=== PATIENT | male | born 1955 | race Two or more races ===

== ENCOUNTER 2020-04-03 19:51 | Inpatient (IN) | payer MEDICAID ==
[~2020-04-03] VITALS: Ht 160 cm; Wt 100.7 kg
[2020-04-03] MEDS ORDERED: DEXAMETHASONE SOD PHOSPHATE 10 MG/ML VIAL IV ONE (20:00)
--- NOTE | 2020-04-03 20:00 | NUR ---
PT AAOX4. AMBULATORY, BIBRA FROM HOME. PER PT TESTED POSITIVE 04/01/20. PT C/O SOB SAT 85% ROOM AIR. PLACED ON NON REBREATHER 15L SAT 98%. MD AND RT AT BEDSIDE. AWAITING ORDERS.
--- NOTE | 2020-04-03 20:02 | NUR ---
R HAND AND L HAND 20G PLACED ON PT.
--- NOTE | 2020-04-03 20:04 | NUR ---
OTC CLERK AT BEDSIDE
[2020-04-03] MEDS ORDERED: DEXAMETHASONE SOD PHOSPHATE 10 MG/ML VIAL ONE (20:07)
[2020-04-03 20:37] LABS: HEMOGLOBIN 13.8 g/dL (13.5-17.5); MEAN CORPUSCULAR VOLUME 80 fL (80-96); PLATELET COUNT (AUTO) 140 /CMM (150-450); WHITE BLOOD COUNT (AUTO) 6.1 K/uL (4.3-11.0)
[2020-04-03 20:42] LABS: BASOPHILS % (AUTO) 0.2 % (0.0-2.0); EOSINOPHILS % (AUTO) 0.1 % (0.0-6.0); HEMATOCRIT 42 % (39-51); LYMPHOCYTES # (AUTO) 0.6 /CMM (0.8-4.8); LYMPHOCYTES % (AUTO) 9.8 % (20.0-44.0); MEAN CORPUSCULAR HGB CONC 33 g/dl (31.0-36.0); MONOCYTES # (AUTO) 0.3 /CMM (0.1-1.30); MONOCYTES % (AUTO) 5.4 % (2.0-12.0); NEUTROPHILS # (AUTO) 5.2 /CMM (1.8-8.9); NEUTROPHILS % (AUTO) 84.5 % (43.0-81.0); RED BLOOD CELL COUNT(AUTO) 5.24 MIL/uL (4.5-6.0)
--- NOTE | 2020-04-03 20:46 | NUR ---
MAMADOUID SWABBED, SENT TO LAB.
--- NOTE | 2020-04-03 20:49 | NUR ---
PT PROVIDED WITH BLANKETS, REMAINS SAT 100%. NO ACUTE DISTRESS NOTED.
[2020-04-03 20:53] LABS: D-DIMER 1.67 mg/L(FEU (0.17-0.50)
[2020-04-03 20:59] LABS: B-TYPE NATRIURETIC PEPTIDE 5384 PG/ML (0-125)
--- NOTE | 2020-04-03 21:07 | NUR ---
PT'S DAUGHTER, MAURICIO
[2020-04-03 21:08] LABS: CREATINE KINASE, TOTAL 266 U/L (39-308); FERRITIN 938 ng/mL (8-388)
[2020-04-03 21:11] LABS: C-REACTIVE PROTEIN 17.8 mg/dL (0.0-0.9)
[2020-04-03] MEDS ORDERED: FINA5TAB4 PO (21:22)
[2020-04-03] MEDS ORDERED: AMLO-212 PO (21:22)
[2020-04-03] MEDS ORDERED: METF-440 PO (21:22)
[2020-04-03] MEDS ORDERED: TAMS-12 PO (21:22)
[2020-04-03] MEDS ORDERED: LISI40TA13 PO (21:22)
[2020-04-03] MEDS ORDERED: SIMV80TA90 PO (21:22)
[2020-04-03] MEDS ORDERED: LATA2.5D15 EACHEYE (21:22)
[2020-04-03] MEDS ORDERED: CARV25TA2 PO (21:22)
[2020-04-03] MEDS ORDERED: ASPIRIN 81 MG TAB.CHEW PO ONE (21:30)
[2020-04-03] MEDS ORDERED: CEFTRIAXONE 1 G in IV D5W 50 ML IV ONE (21:30)
[2020-04-03] MEDS ORDERED: AZITHROMYCIN 500 MG in IV D5W 250 ML IV ONE (21:30)
[2020-04-03] MEDS ORDERED: CEFTRIAXONE 1GM BAG (ER ONLY) 50 ML IV ONE (21:35)
[2020-04-03] MEDS ORDERED: ASPIRIN 81 MG TAB.CHEW ONE (21:35)
[2020-04-03] MEDS ORDERED: AZITHROMYCIN 500 MG VIAL ONE (21:54)
[2020-04-03 21:56] LABS: CALCIUM, SERUM 8.5 mg/dL (8.5-10.1); POTASSIUM 2.9 mmol/L (3.5-5.1)
[2020-04-03 21:57] LABS: ALBUMIN 2.9 g/dL (3.4-5.0); BILIRUBIN,TOTAL 0.7 mg/dL (0.2-1.0); TOTAL PROTEIN, SERUM 7.5 g/dL (6.4-8.2)
[2020-04-03] MEDS ORDERED: ENOXAPARIN SODIUM 100 MG/ML DISP.SYRIN SQ ONE ×2 (22:00→22:08)
--- NOTE | 2020-04-03 22:01 | NUR ---
DR. YARBROUGH SPEAKING WITH DR. CRUZ REGARDING ADMISSION
--- NOTE | 2020-04-03 22:01 | NUR ---
TAINA CALLED FROM [facility] REGARDING LABS AND VITAL SIGNS. WILL CALL BACK.
[2020-04-03] MEDS ORDERED: ENOXAPARIN SODIUM 30 MG/0.3 ML DISP.SYRIN ONE (22:08)
[2020-04-03] MEDS ORDERED: POTASSIUM CHLORIDE 20 MEQ TAB.PRT.SR PO ONE ×2 (22:19→22:30)
[2020-04-03] MEDS ORDERED: IV NS 0.9% 500 ML BAG IV ONE (22:30)
[2020-04-03] MEDS ORDERED: DEXTROSE 50%-WATER 50 ML DISP.SYRIN IV PRN (23:00)
[2020-04-03] MEDS ORDERED: ZOLPIDEM TARTRATE 5 MG TABLET PO PRN (23:00)
--- NOTE | 2020-04-03 23:04 | NUR ---
PATTERN WORKER AT BED SIDE
[2020-04-03 23:28] LABS: BILIRUBIN,DIRECT 0.3 mg/dL (0.0-0.2)
[2020-04-03] MEDS ORDERED: IV PREMIX 0.45% NS + KCL 1,000 ML IV ONE (23:42)
[2020-04-03] MEDS: IV PREMIX 0.45% NS + KCL 1,000 ML IV PRN (23:50)
[2020-04-04] MEDS ORDERED: LIDOCAINE 2% JEL UROJET 10 ML MM ONE (02:53)
--- NOTE | 2020-04-04 03:12 | NUR ---
PT SAT 91%, REPOSITIONED, SAT 96%. VSS.
[2020-04-04 04:58] LABS: HEMATOCRIT 39 % (39-51); HEMOGLOBIN 12.7 g/dL (13.5-17.5); LYMPHOCYTES # (AUTO) 0.6 /CMM (0.8-4.8); LYMPHOCYTES % (AUTO) 9.3 % (20.0-44.0); MEAN CORPUSCULAR HGB CONC 32 g/dl (31.0-36.0); MEAN CORPUSCULAR VOLUME 80 fL (80-96); MONOCYTES # (AUTO) 0.3 /CMM (0.1-1.30); MONOCYTES % (AUTO) 4.2 % (2.0-12.0); NEUTROPHILS # (AUTO) 5.3 /CMM (1.8-8.9); NEUTROPHILS % (AUTO) 86.5 % (43.0-81.0); PLATELET COUNT (AUTO) 138 /CMM (150-450); RED BLOOD CELL COUNT(AUTO) 4.92 MIL/uL (4.5-6.0); WHITE BLOOD COUNT (AUTO) 6.2 K/uL (4.3-11.0)
[2020-04-04] MEDS ORDERED: DEXAMETHASONE SOD PHOSPHATE 10 MG/ML VIAL ONE ×2 (05:06→13:46)
[2020-04-04] MEDS: DEXAMETHASONE SOD PHOSPHATE 4 MG/ML VIAL IV SCH ×2 (05:12→13:54)
[2020-04-04 05:18] LABS: ALBUMIN 2.8 g/dL (3.4-5.0); BILIRUBIN,TOTAL 0.6 mg/dL (0.2-1.0); CALCIUM, SERUM 8.2 mg/dL (8.5-10.1); CREATININE 1.4 mg/dL (0.6-1.3); POTASSIUM 3.4 mmol/L (3.5-5.1); TOTAL PROTEIN, SERUM 7.2 g/dL (6.4-8.2)
[2020-04-04 05:23] LABS: C-REACTIVE PROTEIN 18.4 mg/dL (0.0-0.9)
[2020-04-04] MEDS: BLOOD SUGAR DIAGNOSTIC 1 EACH STRIP VI SCH ×4 (07:45→22:48)
--- NOTE | 2020-04-04 08:10 | NUR ---
PROVIDED WITH BREAKFAST
[2020-04-04] MEDS: INSULIN REGULAR, HUMAN 100 UNIT/ML 3 ML VIAL SQ PRN ×3 (08:11→17:48)
[2020-04-04] MEDS ORDERED: HEPARIN SODIUM, PORCINE 5000 UNITS/1 ML VIAL ONE (08:15)
[2020-04-04] MEDS ORDERED: ASPIRIN 81 MG TAB.CHEW ONE (08:16)
[2020-04-04] MEDS: ASPIRIN 81 MG TAB.CHEW PO SCH (08:54)
--- NOTE | 2020-04-04 08:56 | NUR ---
PT IN BED. AAOX4. NOT IN RESP DISTRESS. BREATHING EVEN AND UNLABORED. O2 O2 VIA NON REBREATHER MASK @ 15LPM, SATTING 96-98%. PT HAD BREAKFAST ATE 20% OF MEAL. MEDICATED ORDERED. IV FLUIDS RUNNING. WILL CONTINUE TO MONITOR
[2020-04-04] MEDS ORDERED: INSULIN GLARGINE, 100 UNIT/ML CARTRIDGE SQ SCH (09:00)
[2020-04-04] MEDS ORDERED: HEPARIN SODIUM, PORCINE 5000 UNITS/1 ML VIAL SQ SCH (09:00)
[2020-04-04] MEDS ORDERED: POTASSIUM CHLORIDE 20 MEQ TAB.PRT.SR PO ONE ×2 (09:00→10:47)
--- NOTE | 2020-04-04 09:10 | NUR ---
DR. CRUZ AT BEDSIDE
[2020-04-04] MEDS ORDERED: REMDESIVIR (CHARGED) 200 MG, *LOADING DOSE 1 EA in IV NS 0.9% 210 ML IV ONE (10:00)
[2020-04-04] MEDS ORDERED: AMLODIPINE BESYLATE 5 MG TABLET ONE (10:47)
[2020-04-04] MEDS ORDERED: CARVEDILOL 12.5 MG TABLET ONE ×2 (10:47→17:49)
[2020-04-04] MEDS ORDERED: TAMSULOSIN 0.4 MG CAP.SR.24H ONE (10:48)
[2020-04-04] MEDS: AMLODIPINE BESYLATE 5 MG TABLET PO SCH (11:06)
[2020-04-04] MEDS: TAMSULOSIN 0.4 MG CAP.SR.24H PO SCH (11:06)
[2020-04-04] MEDS: CARVEDILOL 12.5 MG TABLET PO SCH ×2 (11:06→17:54)
[2020-04-04] MEDS: FINASTERIDE (5 MG) 5 MG TABLET PO SCH (11:07)
--- NOTE | 2020-04-04 11:33 | NUR ---
PT URINATED ON HIS OWN. OUTPUT IS 300ML
--- NOTE | 2020-04-04 12:30 | NUR ---
PT PROVIDED WITH LUNCH
--- NOTE | 2020-04-04 15:54 | NUR ---
CONSENT OBTAINED FOR TRANSFUSION OF CONVALESCENT PLASMA
[2020-04-04] MEDS ORDERED: ENOXAPARIN SODIUM 40 MG/0.4 ML DISP.SYRIN SQ ONE (17:49)
[2020-04-04] MEDS: ENOXAPARIN SODIUM 40 MG/0.4 ML DISP.SYRIN SQ SCH (17:55)
--- NOTE | 2020-04-04 18:23 | NUR ---
BLOOD TRANSFUSION STARTED.
--- NOTE | 2020-04-04 18:23 | NUR ---
BLOOD TRANSFUSION STARTED. R AC 20G
--- NOTE | 2020-04-04 18:40 | NUR ---
VS CHECKED. NO NOTED REACTION FROM INFUSION.
--- NOTE | 2020-04-04 23:07 | NUR ---
REPORT GIVEN WILSON KERN FOR RAFI PT WILL BE TRANSPORTED TO 1ST FLOOR
[2020-04-04] MEDS: *INSULIN REGULAR(HUMULIN R)HUM 100 UNIT/ML VIAL SQ PRN (23:48)
[2020-04-05] VITALS: BP 97/49
--- NOTE | 2020-04-05 | NUR ---
RN NOTES RECEIVED PT FROM ER VIA GURNEY, TRANSFERRED TO BED BY WALKING. ON NONREBREATHER AT 15L. PT NOTED WITH SOB ON EXERTION LIKE TURNING TO SIDES AND DESATS TO 78-80. BREATHING TECHNIQUES GIVEN, KEEP HOB ELEVATED AND GOES TO 90-93% IN TIME. PT ALERT AND ORIENTED X 4. PUT ON TELE MONITORING SHOWS SINUS RHYTHM . WITH RAC G 20 AND LH G 18 IV BOTH PATENT AND INTACT, FLUSHED. HEAD TO TOE ASSESSMENT DONE. SKIN INTACT, WARM TO TOUCH.BP 97/49 RR 36 P 85 T98. PT ORIENTED TO CALL LIGHT, BED OPERATION. ALL SAFETY MEASURES IMPLEMENTED PER PROTOCOL. CALL LIGHT WITHIN REACH, BED LOCKED IN LOWEST POSITION. SIDE RAILS UP X2. ISOLATION PRECAUTION FOR COVID OBSERVED, WILL CONTINUE TO MONITOR.
--- NOTE | 2020-04-05 00:01 | NUR ---
PT TRANSPORTED TO 1ST FLOOR
[2020-04-05] MEDS ORDERED: DEXAMETHASONE SOD PHOSPHATE 10 MG/ML VIAL ONE (00:04)
[2020-04-05] MEDS: DEXAMETHASONE SOD PHOSPHATE 4 MG/ML VIAL IV SCH ×4 (00:14→21:53)
[2020-04-05] MEDS ORDERED: INSULIN REGULAR, HUMAN 100 UNIT/ML 3 ML VIAL SQ PRN (00:30)
[2020-04-05] MEDS ORDERED: DEXTROSE 50%-WATER 50 ML DISP.SYRIN IV PRN (00:30)
[2020-04-05] MEDS ORDERED: *INSULIN REGULAR(HUMULIN R)HUM 100 UNIT/ML VIAL SQ PRN (00:30)
--- NOTE | 2020-04-05 00:40 | NUR ---
rn note Spoke to pt's daughter Ange. Updated about pt's new room and condition.
[2020-04-05] MEDS: LATANOPROST EYE DROP 0.005% 2.5 ML BOTTLE EACHEYE SCH ×2 (00:42→21:53)
[2020-04-05] MEDS: SIMVASTATIN 10 MG TABLET PO SCH ×2 (01:16→21:53)
[2020-04-05] MEDS ORDERED: IV PREMIX 0.45% NS + KCL 1,000 ML IV ONE (01:35)
[2020-04-05] MEDS: IV PREMIX 0.45% NS + KCL 1,000 ML IV PRN (01:42)
[2020-04-05 04:00] VITALS: BP 128/69
--- NOTE | 2020-04-05 05:02 | NUR ---
rn note Pt continue on non rebreather 15L. No distress noted. o2 sat at 94 %. kept hob elevated. On frequent visual check.
--- NOTE | 2020-04-05 07:00 | NUR ---
RN CLOSING NOTES PT ABLE TO MAKE NEEDS KNOWN. CONTINUE ON NRB 15L. NO DISTRESS NOTES, DENIES SOB AT THIS TIME. KEPT HOB ELEVATED AT ALL TIMES. NO CHANGES IN LOC NOTED. SR ON TELE MONITOR. NEEDS ATTENDED. ON FREQUENT VISUAL CHECK. ISOLATION PRECAUTION MAINTAINED. 1/2NS WITH 20MEQ KCL RUNNING AT 75 ML/HR. NO SIGNS OF INFILTRATION. WILL ENDORSE TO NEXT SHIFT NURSE FOR RAFI.
[2020-04-05 07:05] LABS: BASOPHILS % (AUTO) 0.1 % (0.0-2.0); HEMATOCRIT 38 % (39-51); HEMOGLOBIN 12.5 g/dL (13.5-17.5); LYMPHOCYTES # (AUTO) 0.6 /CMM (0.8-4.8); LYMPHOCYTES % (AUTO) 7.4 % (20.0-44.0); MEAN CORPUSCULAR HGB CONC 33 g/dl (31.0-36.0); MEAN CORPUSCULAR VOLUME 80 fL (80-96); MONOCYTES # (AUTO) 0.4 /CMM (0.1-1.30); MONOCYTES % (AUTO) 4.6 % (2.0-12.0); NEUTROPHILS # (AUTO) 6.8 /CMM (1.8-8.9); NEUTROPHILS % (AUTO) 87.9 % (43.0-81.0); PLATELET COUNT (AUTO) 187 /CMM (150-450); RED BLOOD CELL COUNT(AUTO) 4.81 MIL/uL (4.5-6.0); WHITE BLOOD COUNT (AUTO) 7.8 K/uL (4.3-11.0)
[2020-04-05 07:20] LABS: ALBUMIN 2.8 g/dL (3.4-5.0); BILIRUBIN,DIRECT 0.2 mg/dL (0.0-0.2); BILIRUBIN,TOTAL 0.6 mg/dL (0.2-1.0); CALCIUM, SERUM 8.5 mg/dL (8.5-10.1); CREATININE 1.1 mg/dL (0.6-1.3); POTASSIUM 3.8 mmol/L (3.5-5.1); TOTAL PROTEIN, SERUM 7.3 g/dL (6.4-8.2)
[2020-04-05 07:29] LABS: CHOLESTEROL 136 mg/dL (<200); HDL CHOLESTEROL 40 mg/dL (40-60); LDL 85 mg/dL (0-99); TRIGLYCERIDES 104 mg/dL (30-150)
[2020-04-05] MEDS ORDERED: BLOOD SUGAR DIAGNOSTIC 1 EACH STRIP VI SCH (07:30)
--- NOTE | 2020-04-05 07:30 | NUR ---
RN OPENING NOTES PATIENT RECIEVED IN BED IN SEMI-FOWLERS POSITION. PT ABLE TO MAKE NEEDS KNOWN. PATIENT CURRENTLY ON NRB 15L. PATIENT DENIES SOB AT THIS TIME. KEPT HOB ELEVATED AT ALL TIMES. NO CHANGES IN LOC NOTED. NEEDS ATTENDED. ON FREQUENT VISUAL CHECK. ISOLATION PRECAUTION MAINTAINED. 1/2NS WITH 20MEQ KCL RUNNING AT 75 ML/HR. NO SIGNS OF INFILTRATION. SAFETY PRECAUTIONS IMPLEMENTED. BED LOCKED IN LOWEST POSITION, SIDE RAILS UP X2, CALL LIGHT WITHIN REACH. WILL CONTINUE TO MONITOR AND PROVIDE CARE THROUGHOUT SHIFT.
[2020-04-05 08:00] VITALS: BP 123/78
[2020-04-05] MEDS: ASPIRIN 81 MG TAB.CHEW PO SCH (08:11)
[2020-04-05] MEDS: TAMSULOSIN 0.4 MG CAP.SR.24H PO SCH (08:11)
[2020-04-05] MEDS: FINASTERIDE (5 MG) 5 MG TABLET PO SCH (08:11)
[2020-04-05] MEDS: AMLODIPINE BESYLATE 5 MG TABLET PO SCH (08:12)
[2020-04-05] MEDS: CARVEDILOL 12.5 MG TABLET PO SCH ×2 (08:13→18:01)
[2020-04-05] MEDS: ENOXAPARIN SODIUM 40 MG/0.4 ML DISP.SYRIN SQ SCH ×2 (08:14→18:04)
[2020-04-05] MEDS: BLOOD SUGAR DIAGNOSTIC 1 EACH STRIP VI SCH ×4 (08:21→21:54)
[2020-04-05] MEDS: INSULIN REGULAR, HUMAN 100 UNIT/ML 3 ML VIAL SQ PRN ×3 (08:33→18:14)
[2020-04-05] MEDS ORDERED: HEPARIN SODIUM, PORCINE 5000 UNITS/1 ML VIAL SQ SCH (09:00)
[2020-04-05] MEDS ORDERED: DEXAMETHASONE SOD PHOSPHATE 4 MG/ML VIAL IV SCH (09:00)
[2020-04-05 09:30] LABS: C-REACTIVE PROTEIN 13.8 mg/dL (0.0-0.9)
--- NOTE | 2020-04-05 09:35 | NUR ---
PT. IS AWAKE AND FOLLOW COMMANDS PLACED INTO HIGH FLOW NASAL CANNULA PER DR. CRUZ. PARAMETERS BELOW ORDER: 40 FLOW FIO2 100% Addendum: 04/05/20 at 0937 by JUAN C BLACKBURN RT Amended: Links added.
[2020-04-05 12:00] VITALS: BP 97/52
[2020-04-05] MEDS: REMDESIVIR (CHARGED) 100 MG in IV NS 0.9% 100 ML IV SCH (12:18)
[2020-04-05 16:00] VITALS: BP 122/73
--- NOTE | 2020-04-05 19:00 | NUR ---
RN NOTE RECEIVED PATIENT IN BED ON HIGH LIZ'S, AO X4, QATARI SPEAKING BUT UNDERSTANDS SIMPLE TAJIK, IN NO S/SX OF ACUTE DISTRESS AT THIS TIME. PATIENT IS ON HIGH FLOW OXYGEN AT 100% FIO2, AND 15 LPM VIA NON REBREATHER; TOLERATING WELL, SATURATION AT 98%. PATIENT ON TELE MONITOR READING SR, HR IS 77. NOTED IV SITE AT L HAND 20G, AND RAC 18G, ALL BUS PATENT AND FLUSHING WELL. NO S/S OF INFECTION OR INFILTRATION, 0.45 NS + 20 MEQ KCL INFUSING AT 75 ML/HR, IV PUMP BEEPING EACH TIME PATIENT MOVES ARM. PATIENT IS CONTINENT WITH URINAL AT BEDSIDE. SAFETY MEASURES IMPLEMENTED PER PROTOCOL. PATIENT BED ALARM IS ON. HEAD OF BED ELEVATED. BED IS LOCKED, IN LOWEST POSITION AND SIDE RAILS UP. CALL LIGHT WITHIN REACH OF THE PATIENT. WILL CONTINUE TO MONITOR AND REASSESS FOR ANY CHANGES.
--- NOTE | 2020-04-05 19:23 | NUR ---
RN OPENING NOTES PATIENT IN BED IN SEMI-FOWLERS POSITION. PT ABLE TO MAKE NEEDS KNOWN. PATIENT CURRENTLY ON NRB 15L PLUS HIGH FLOW OXYGEN 40 LPM AT 100%. PATIENT DENIES SOB AT THIS TIME. KEPT HOB ELEVATED AT ALL TIMES. NO CHANGES IN LOC NOTED. NEEDS ATTENDED. ON FREQUENT VISUAL CHECK. ISOLATION PRECAUTION MAINTAINED. 1/2NS WITH 20MEQ KCL RUNNING AT 75 ML/HR. NO SIGNS OF INFILTRATION. SAFETY PRECAUTIONS IMPLEMENTED. BED LOCKED IN LOWEST POSITION, SIDE RAILS UP X2, CALL LIGHT WITHIN REACH. WILL ENDORSE CARE TO UPCOMING SHIFT.
[2020-04-05 20:00] VITALS: BP 120/55
[2020-04-05] MEDS: *INSULIN REGULAR(HUMULIN R)HUM 100 UNIT/ML VIAL SQ PRN (22:15)
[2020-04-06] VITALS: BP 112/65
[2020-04-06 04:00] VITALS: BP 119/62
[2020-04-06] MEDS: DEXAMETHASONE SOD PHOSPHATE 4 MG/ML VIAL IV SCH ×3 (05:14→21:39)
[2020-04-06 08:00] VITALS: BP 137/63
--- NOTE | 2020-04-06 08:00 | NUR ---
RN OPENING NOTES PATIENT IN BED IN SEMI-FOWLERS POSITION. PT ABLE TO MAKE NEEDS KNOWN. PATIENT CURRENTLY ON NRB 15L PLUS HIGH FLOW OXYGEN 40 LPM AT 100%,Saturation 93% ,PATIENT WITH SOB AT THIS TIME . KEPT HOB ELEVATED AT ALL TIMES.NEEDS ATTENDED. ON FREQUENT VISUAL CHECK. ISOLATION PRECAUTION MAINTAINED. HL ON RT AC INTACT AND FLUSHED WELL , NO SIGNS OF INFILTRATION. SAFETY PRECAUTIONS IMPLEMENTED. BED LOCKED IN LOWEST POSITION, SIDE RAILS UP X2, CALL LIGHT WITHIN REACH.
[2020-04-06 08:07] LABS: ALBUMIN 2.8 g/dL (3.4-5.0); BILIRUBIN,TOTAL 0.7 mg/dL (0.2-1.0); CALCIUM, SERUM 8.8 mg/dL (8.5-10.1); POTASSIUM 3.8 mmol/L (3.5-5.1); TOTAL PROTEIN, SERUM 7.3 g/dL (6.4-8.2)
[2020-04-06 08:17] LABS: ALBUMIN 2.8 g/dL (3.4-5.0); BILIRUBIN,DIRECT 0.2 mg/dL (0.0-0.2); BILIRUBIN,TOTAL 0.7 mg/dL (0.2-1.0); CALCIUM, SERUM 8.6 mg/dL (8.5-10.1); CREATININE 0.9 mg/dL (0.6-1.3); POTASSIUM 3.8 mmol/L (3.5-5.1); TOTAL PROTEIN, SERUM 7.2 g/dL (6.4-8.2)
[2020-04-06] MEDS ORDERED: INSULIN GLARGINE, 100 UNIT/ML CARTRIDGE SQ SCH (09:00)
[2020-04-06] MEDS: ASPIRIN 81 MG TAB.CHEW PO SCH (09:13)
[2020-04-06] MEDS: CARVEDILOL 12.5 MG TABLET PO SCH ×2 (09:13→16:46)
[2020-04-06] MEDS: TAMSULOSIN 0.4 MG CAP.SR.24H PO SCH (09:14)
[2020-04-06] MEDS: AMLODIPINE BESYLATE 5 MG TABLET PO SCH (09:14)
[2020-04-06] MEDS: BLOOD SUGAR DIAGNOSTIC 1 EACH STRIP VI SCH ×4 (09:15→21:42)
[2020-04-06] MEDS: FINASTERIDE (5 MG) 5 MG TABLET PO SCH (09:16)
[2020-04-06] MEDS: *INSULIN REGULAR(HUMULIN R)HUM 100 UNIT/ML VIAL SQ PRN ×3 (09:24→21:53)
[2020-04-06] MEDS: ENOXAPARIN SODIUM 40 MG/0.4 ML DISP.SYRIN SQ SCH (09:32)
--- NOTE | 2020-04-06 09:43 | NUR ---
SECRETARY RECEPTIONIST NOTE REPORTED TO DR CRUZ STILL EASILY DESATURATED WHEN EATING OR DO ANY MOVES AWAIR OF CURRENT SETTING OF O2
[2020-04-06] MEDS: REMDESIVIR (CHARGED) 100 MG in IV NS 0.9% 100 ML IV SCH (09:45)
--- NOTE | 2020-04-06 10:00 | NUR ---
FABRICE RN NOTE ASSISTED TO SIDE ,SATURATION 94% WILL MONITOR
--- NOTE | 2020-04-06 10:30 | NUR ---
renate rn note venous Doppler study lower legs done as ordered
--- NOTE | 2020-04-06 11:04 | NUR ---
FABRICE RACHEL NOTE PER DR LISETH PARSON TO STAY ON SIDE UPDATED PATIENT CONDITION ,AWARE THAT EASILY DESATURATED WHEN MOVING Addendum: 04/06/20 at 1135 by MARVEL SAMUELS RN PLACED ON HIS LT SIDE SATURATION 92% AT THIS TIME WILL MONITOR
[2020-04-06 12:00] VITALS: BP 116/68
--- NOTE | 2020-04-06 13:01 | NUR ---
renate rn note ct angio consent done by patient
[2020-04-06] MEDS ORDERED: IV NS 0.9% 250 ML IV ONE (14:30)
[2020-04-06] MEDS ORDERED: IOHEXOL-350 100 ML VIAL IV ONE (14:30)
--- NOTE | 2020-04-06 15:05 | NUR ---
renate rn note ct angio gram done as ordered
--- NOTE | 2020-04-06 15:38 | NUR ---
FABRICE RN NOTE ASSISTED TO SIDE SATURATION 91%
[2020-04-06 16:00] VITALS: BP 132/69
--- NOTE | 2020-04-06 17:07 | NUR ---
renate rn note blod sugar checked 210 mg\dl will give coverage wit insulin ,encourage again to stay on side ,stated that will try latter , paint condition updated with daughter Jean Paul
--- NOTE | 2020-04-06 18:02 | NUR ---
FABRICE RN NOTE HAVING DINNER,ABLE TO EAT 10% , AFTER PLACED PATIENT ON RT SIDE , SATIATION THIS TIME 88% WILL CONT TO MONITOR UNABLE TO STAY PRONE POSITION AT THIS TIME , WILL CONT TO MONITOR
--- NOTE | 2020-04-06 18:47 | NUR ---
FABRICE RN NOTE TURN HIMSELF ON BACK , STILL ON ON HIGH FLOW AND NO NONREBREATHER MASK 15L,SATURATION 89-90 % AT THIS TIME , STILL WITH CONDOM CATH TO GRAVITY WITH YELLOW COLOR URINE , RT UPPER ARM MID LINE IN PLACE AND FLUSHED WELL, STILL WITH SOB NOTED , ENCOURAGING TO PLACE ON SIDE OR PRONE POSITION ,STATED THAT CANT TO AT THIS TIME WILL TRY LATTER ON TONIGHT , WILL CONT TO MONITOR
--- NOTE | 2020-04-06 19:30 | NUR ---
RN OPENING NOTE RECEIVED PT IN BED. A/O X 4, PRIMARILY UZBEK SPEAKING, SOME CZECH ABLE TO MAKE NEEDS KNOWN. PT IS ON NONREBREATHER MASK 15L AND HIGH FLOW 40L FIO2 100%, PT SATURATION IS 89% AT THIS TIME. NO SOB OR RESP DISTRESS AT THIS TIME, PT IS EXPERIENCING LABORED BREATHING, BASELINE HX OF PT, AWARE. ENCOURAGED PT TO LIE ON SIDE. ON TELE MONITOR PT PRESENTS WITH NSR HR OF 79 AT THIS TIME. PT HAS CONDOM CATH DRAINING TO GRAVITY. IV SITES PATENT, INTACT AND FLUSHED. SAFETY MEASURES IN PLACE, ISOLATION PRECAUTIONS IMPLEMENTED, HOB ELEVATED SEMI FOWLERS, SIDE RAILS UP X3, BED LOCKED IN LOWEST POSITION WITH BED ALARM ON. CALL LIGHT WITHIN REACH. WILL CONT TO MONITOR.
[2020-04-06 20:00] VITALS: BP 112/56
[2020-04-06] MEDS ORDERED: ENOXAPARIN SODIUM 100 MG/ML DISP.SYRIN SQ SCH (21:00)
[2020-04-06] MEDS: SIMVASTATIN 10 MG TABLET PO SCH (21:40)
[2020-04-06] MEDS: LATANOPROST EYE DROP 0.005% 2.5 ML BOTTLE EACHEYE SCH (21:40)
[2020-04-07] VITALS: BP 129/69
--- NOTE | 2020-04-07 00:35 | NUR ---
PT EASILY DESATURATES WHEN MASK COMES OFF, ENCOURAGED/REMINDED IMPORTANCE OF KEEPING MASK ON. PT SEEMS MORE ANXIOUS. WILL CONT TO MONITOR AND REASSURE PT. UPDATED DAUGHTER MAURICIO. CAN BE REACHED AT [phone]
[2020-04-07 04:00] VITALS: BP 119/55
[2020-04-07] MEDS: DEXAMETHASONE SOD PHOSPHATE 4 MG/ML VIAL IV SCH ×3 (05:56→21:08)
--- NOTE | 2020-04-07 06:39 | NUR ---
RN CLOSING NOTES NO SIGNIFICANT CHANGES IN PT CONDITION. ENCOURAGED PT TO LAY ON SIDE AND SIT UPRIGHT, AND TAKE DEEP BREATHS. SATURATION 86-90 THROUGHOUT NIGHT, SLEEPING. CONDOM CATH WAS COMING OFF AND RESULTED IN IT BEING REMOVED, PT REQUESTS TO USE URINAL FOR NOW. SAFETY MEASURES IN PLACE, HOB ELEVATED. SIDE RAILS X2. BED LOCKED IN LOWEST POSITION. CALL LIGHT WITHIN REACH. AFEBRILE, PT DENIES PAIN. ALL NEEDS ATTENDED. WILL ENDORSE TO AM NURSE FOR CONTINUATION OF CARE. Addendum: 04/07/20 at 0653 by ELIZABETH VERDUGO RN PT STILL ON 15L NRB MASK AND 40L FIO2 100%
[2020-04-07 06:54] LABS: HEMATOCRIT 39 % (39-51); HEMOGLOBIN 12.8 g/dL (13.5-17.5); LYMPHOCYTES # (AUTO) 0.3 /CMM (0.8-4.8); LYMPHOCYTES % (AUTO) 3.9 % (20.0-44.0); MEAN CORPUSCULAR HGB CONC 33 g/dl (31.0-36.0); MEAN CORPUSCULAR VOLUME 79 fL (80-96); MONOCYTES # (AUTO) 0.3 /CMM (0.1-1.30); MONOCYTES % (AUTO) 4.2 % (2.0-12.0); NEUTROPHILS # (AUTO) 7.1 /CMM (1.8-8.9); NEUTROPHILS % (AUTO) 91.9 % (43.0-81.0); PLATELET COUNT (AUTO) 196 /CMM (150-450); RED BLOOD CELL COUNT(AUTO) 4.96 MIL/uL (4.5-6.0); WHITE BLOOD COUNT (AUTO) 7.7 K/uL (4.3-11.0)
[2020-04-07 07:35] LABS: ALBUMIN 2.7 g/dL (3.4-5.0); BILIRUBIN,DIRECT 0.2 mg/dL (0.0-0.2); BILIRUBIN,TOTAL 0.7 mg/dL (0.2-1.0); CALCIUM, SERUM 8.6 mg/dL (8.5-10.1); CREATININE 0.9 mg/dL (0.6-1.3); POTASSIUM 4.1 mmol/L (3.5-5.1); TOTAL PROTEIN, SERUM 6.9 g/dL (6.4-8.2)
[2020-04-07 08:00] VITALS: BP 123/64
--- NOTE | 2020-04-07 08:08 | NUR ---
FABRICE OPENING NOTES RECEIVED PT ON BED, RESTING.A/O X4. NO S/S OF DISTRESS NOTED AT THIS TIME. ON NRB 15L/MIN. AND HF AT 40L. PT USES URINAL FOR NOW. SAFETY MEASURES IN PLACE, HOB ELEVATED.ON ACUTE CHECKS. NO S/S OF HYPO/HYPERGLYCEMIA OBSERVED. ON CCHO DIET 60GM/MEAL. MEAL INTAKE ENCOURAGE. SIDE RAILS X2. BED LOCKED IN LOWEST POSITION. CALL LIGHT WITHIN REACH. AFEBRILE, PT DENIES PAIN. ALL NEEDS ATTENDED. FALL RISK PRECAUTIONS IN PLACE.
[2020-04-07] MEDS: BLOOD SUGAR DIAGNOSTIC 1 EACH STRIP VI SCH ×4 (08:22→22:11)
[2020-04-07] MEDS: ASPIRIN 81 MG TAB.CHEW PO SCH (08:40)
[2020-04-07] MEDS: AMLODIPINE BESYLATE 5 MG TABLET PO SCH (08:42)
[2020-04-07] MEDS: FINASTERIDE (5 MG) 5 MG TABLET PO SCH (08:42)
[2020-04-07] MEDS: TAMSULOSIN 0.4 MG CAP.SR.24H PO SCH (08:42)
[2020-04-07] MEDS: CARVEDILOL 12.5 MG TABLET PO SCH ×2 (08:43→16:42)
[2020-04-07] MEDS: ENOXAPARIN SODIUM 40 MG/0.4 ML DISP.SYRIN SQ SCH ×2 (08:43→21:11)
[2020-04-07] MEDS: *INSULIN REGULAR(HUMULIN R)HUM 100 UNIT/ML VIAL SQ PRN ×2 (08:50→22:15)
[2020-04-07] MEDS: PANTOPRAZOLE 40 MG TABLET.DR PO SCH (08:57)
[2020-04-07] MEDS ORDERED: INSULIN GLARGINE, 100 UNIT/ML CARTRIDGE SQ SCH (09:00)
[2020-04-07] MEDS: INSULIN GLARGINE, 100 UNIT/ML CARTRIDGE SQ SCH (09:24)
[2020-04-07] MEDS: GLUCERNA SHAKE 237 ML CAN PO SCH ×2 (11:00→16:46)
[2020-04-07] MEDS: REMDESIVIR (CHARGED) 100 MG in IV NS 0.9% 100 ML IV SCH (11:16)
[2020-04-07] MEDS: INSULIN REGULAR, HUMAN 100 UNIT/ML 3 ML VIAL SQ PRN ×2 (11:33→16:52)
[2020-04-07 12:00] VITALS: BP 103/50
[2020-04-07 16:00] VITALS: BP 122/57
--- NOTE | 2020-04-07 18:49 | NUR ---
RN CLOSING NOTES PT RESTING IN BED. ON HF 40L, NRB 15L SATURATION @90-96%. NO ACUTE RESPIRATORY DISTRESS NOTED. NO PAIN REPORTED AT THIS TIME. SAFETY MEASURES IN PLACE. CALL LIGHT WITHIN REACH. HOB ELEVATED. BED LOCKED AND IN LOWEST POSITION. ALL NEEDS ATTENDED. NO SIGNIFICANT CHANGES IN PT CONDITION THROUGHOUT THE SHIFT. WILL ENDORSE TO NIGHT NURSE FOR RAFI.
--- NOTE | 2020-04-07 19:45 | NUR ---
RN NOTES RECEIVED PT ALERT AND ORIENTED X4. ON HIGH FLOW 40L FIO2 100% WITH NON REBREATHER AT 15L. PT DENIES ANY SOB. NO DISTRESS NOTED. HOB ON HIGH FOWLERS. O2 SAT AT 90-93 %. DENIES PAIN AT THIS TIME. PT WITH JUMA MIDLINE RAC AND LHAND IV, ALL PATENT AND INTACT, FLUSHED WITH NS. ALL SAFETY MEASURES IMPLEMENTED PER PROTOCOL. CALL LIGHT WITHIN REACH. BED LOCKED IN LOWEST POSITION, SIDE RAILS UP X 2.
[2020-04-07 20:00] VITALS: BP 109/58
[2020-04-07] MEDS: SIMVASTATIN 10 MG TABLET PO SCH (21:08)
[2020-04-07] MEDS: LATANOPROST EYE DROP 0.005% 2.5 ML BOTTLE EACHEYE SCH (21:24)
[2020-04-08] VITALS: BP 140/70
[2020-04-08 04:00] VITALS: BP 119/62
[2020-04-08] MEDS: DEXAMETHASONE SOD PHOSPHATE 4 MG/ML VIAL IV SCH ×3 (05:11→20:57)
[2020-04-08 06:23] LABS: ALBUMIN 2.6 g/dL (3.4-5.0); BILIRUBIN,DIRECT 0.2 mg/dL (0.0-0.2); BILIRUBIN,TOTAL 0.7 mg/dL (0.2-1.0); CALCIUM, SERUM 8.5 mg/dL (8.5-10.1); POTASSIUM 3.8 mmol/L (3.5-5.1); TOTAL PROTEIN, SERUM 6.7 g/dL (6.4-8.2)
--- NOTE | 2020-04-08 07:00 | NUR ---
RN NOTES PT CONTINUE ON HFNC 40L FIO2 100% AND NRB 15L, O2 SAT AT 88-94%. PT DENIES ANY SOB, NO DISTRESS NOTED. REMAIN ON HIGH FOWLERS. DENIES ANY PAIN AT THIS TIME. NO S/SX OF HYPO/HYPERGLYCEMIA. ABLE TO MAKE NEEDS KNOWN, NEEDS ATTENDED. NSR ON TELE MONITOR W/ HR OF 70S. CALL LIGHT WITHIN REACH AT ALL TIMES. BED LOCKED IN LOWEST POSITION. WILL ENDORSE TO NEXT SHIFT NURSE FOR RAFI.
--- NOTE | 2020-04-08 07:30 | NUR ---
RN OPENING NOTES PATIENT PRESENT IN BED, A/OX4, ON O2 SUPPLEMENT THERAPY WITH NON - REBREATHER MASK AND HIGH FLOW NC, ON MAX SETTINGS, SPO2 IS 88-94%, RESPIRATIONS EVEN AND UNLABORED, NSR ON TELE-MONITOR, SKIN IS INTACT, IV LINES INTACT AND PATENT, URINAL AT BED SITE, ISOLATED FOR COVID-19, SAFETY MEASURES IN PLACE, CALL LIGHT IN REACH, HOB ELEVATED, FLUIDS AND SNACKS PROVIDED, EDUCATION REGARDING O2 THERAPY PROVIDED, WILL CONT TO MONITOR
[2020-04-08 08:00] VITALS: BP 111/88
[2020-04-08] MEDS: PANTOPRAZOLE 40 MG TABLET.DR PO SCH (08:12)
[2020-04-08] MEDS: BLOOD SUGAR DIAGNOSTIC 1 EACH STRIP VI SCH ×4 (08:12→21:14)
[2020-04-08] MEDS: GLUCERNA SHAKE 237 ML CAN PO SCH ×2 (08:12→17:39)
[2020-04-08] MEDS: ASPIRIN 81 MG TAB.CHEW PO SCH (08:12)
[2020-04-08] MEDS: TAMSULOSIN 0.4 MG CAP.SR.24H PO SCH (08:13)
[2020-04-08] MEDS: CARVEDILOL 12.5 MG TABLET PO SCH ×2 (08:13→17:00)
[2020-04-08] MEDS: AMLODIPINE BESYLATE 5 MG TABLET PO SCH (08:13)
[2020-04-08] MEDS: FINASTERIDE (5 MG) 5 MG TABLET PO SCH (08:13)
[2020-04-08] MEDS: INSULIN GLARGINE, 100 UNIT/ML CARTRIDGE SQ SCH ×2 (08:16→09:00)
[2020-04-08] MEDS: ENOXAPARIN SODIUM 40 MG/0.4 ML DISP.SYRIN SQ SCH ×2 (08:16→21:03)
[2020-04-08] MEDS: *INSULIN REGULAR(HUMULIN R)HUM 100 UNIT/ML VIAL SQ PRN ×4 (08:16→21:21)
--- NOTE | 2020-04-08 09:14 | NUR ---
RN note lantus was administer , see administration records
[2020-04-08 09:41] LABS: BASOPHILS % (AUTO) 0.3 % (0.0-2.0); HEMATOCRIT 41 % (39-51); HEMOGLOBIN 13.1 g/dL (13.5-17.5); LYMPHOCYTES # (AUTO) 0.3 /CMM (0.8-4.8); LYMPHOCYTES % (AUTO) 4.3 % (20.0-44.0); MEAN CORPUSCULAR HGB CONC 32 g/dl (31.0-36.0); MEAN CORPUSCULAR VOLUME 80 fL (80-96); MONOCYTES # (AUTO) 0.2 /CMM (0.1-1.30); MONOCYTES % (AUTO) 3.2 % (2.0-12.0); NEUTROPHILS # (AUTO) 7.2 /CMM (1.8-8.9); NEUTROPHILS % (AUTO) 92.2 % (43.0-81.0); PLATELET COUNT (AUTO) 203 /CMM (150-450); RED BLOOD CELL COUNT(AUTO) 5.08 MIL/uL (4.5-6.0); WHITE BLOOD COUNT (AUTO) 7.8 K/uL (4.3-11.0)
[2020-04-08] MEDS: REMDESIVIR (CHARGED) 100 MG in IV NS 0.9% 100 ML IV SCH (10:20)
[2020-04-08 12:00] VITALS: BP 105/74
[2020-04-08 16:00] VITALS: BP 91/55
--- NOTE | 2020-04-08 18:30 | NUR ---
RN CLOSING NOTED PATIENT REMAINS STABLE DURING SHIFT, MEDICATIONS GIVEN, EDUCATION PROVIDED, COMFORT NEEDS ATTENDED, REPOSITIONING DONE, WILL ENDORSE TO PM SHIFT RN FOR RAFI
--- NOTE | 2020-04-08 19:20 | NUR ---
THERMAL CUTTING TRACER MACHINE OPERATOR OPENING NOTES, PATIENT PRESENT IN BED, A/OX4 BREATHING EVEN AND UNLABORED, NO SOB/ACUTE DISTRESS NOTED, ON NON - REBREATHER MASK AND HIGH FLOW NC, 40L, 100%FIO2, SPO2 IS 84-95%, RESPIRATIONS EVEN AND UNLABORED, NSR ON TELE-MONITOR WITH HR 60-80S, IV LINES PATENT AND INTACT, SAFETY MEASURES IN PLACE, CALL LIGHT IN REACH, HOB ELEVATED, WILL CONT TO MONITOR CLOSELY.
[2020-04-08 20:00] VITALS: BP 119/65
[2020-04-08] MEDS: SIMVASTATIN 10 MG TABLET PO SCH (21:02)
[2020-04-08] MEDS: LATANOPROST EYE DROP 0.005% 2.5 ML BOTTLE EACHEYE SCH (21:04)
[2020-04-09] VITALS: BP 117/60
--- NOTE | 2020-04-09 02:25 | NUR ---
5851 PAGED TRIMMING CUTTER CROP PRODUCTION ADVISOR REGARDING PATIENT'S O2 SATURATION IN THE 80S- 90% AT REST ON HIFLOW AND NRM, SPOKE WITH DR CHILDERS AND HE SAID SATURATION 85% AND 90% IS OK FOR PATIENT. NO ORDER GIVEN. PATIENT ON HIGH LIZ'S POSITION FOR MAXIMUM OXYGENATION. NO RESPIRATORY DISTRESS NOTED. RR 24. FREQUENT REMINDER TO TURN TO HIS SIDE. PATIENT BEING CLOSELY MONITORED. ALL NEED ANTICIPATED.
[2020-04-09 04:00] VITALS: BP 136/66
[2020-04-09] MEDS: DEXAMETHASONE SOD PHOSPHATE 4 MG/ML VIAL IV SCH ×3 (05:26→21:04)
--- NOTE | 2020-04-09 06:55 | NUR ---
FIBERGLASS MODEL MAKER CLOSING NOTES, PATIENT IN BED, A/OX4 BREATHING EVEN AND UNLABORED, NO SOB/ACUTE DISTRESS NOTED, ON NON - REBREATHER MASK AND HIGH FLOW NC, 40L, 100%FIO2, SPO2 IS 84-95%, WITH EPISODES OF DESATURATION IN LOW 80S DURING MY SHIFT, ENCOURAGED PATIENT TO REPOSITION ON HIS SIDE WITH IMPROVEMENT, NSR ON TELE-MONITOR WITH HR 60-80S, SAFETY MEASURES IN PLACE, CALL LIGHT IN REACH, HOB ELEVATED TO FACILITATE BREATHING, WILL ENDORSE CONTINUITY OF CARE TO ONCOMING NURSE.
--- NOTE | 2020-04-09 07:15 | NUR ---
[employer] OPENING NOTES RECEIVED PT AWAKE, A/O X4. ON NRB MASK 15L AND HF 40L, FIO2 100%, SPO2 @85-95%. NO SOB OR ANY ACUTE DISTRESS NOTED AT THIS TIME. SR ON TELE-MONITOR. IV LINES INTACT, PATENT AND FLUSHED. SAFETY MEASURES IN PLACE. CALL LIGHT WITHIN REACH. HOB ELEVATED. WILL CONTINUE TO MONITOR.
[2020-04-09] MEDS: BLOOD SUGAR DIAGNOSTIC 1 EACH STRIP VI SCH ×4 (07:30→21:13)
[2020-04-09 08:00] VITALS: BP 135/72
[2020-04-09] MEDS: TAMSULOSIN 0.4 MG CAP.SR.24H PO SCH (08:44)
[2020-04-09] MEDS: ASPIRIN 81 MG TAB.CHEW PO SCH (08:44)
[2020-04-09] MEDS: FINASTERIDE (5 MG) 5 MG TABLET PO SCH (08:44)
[2020-04-09] MEDS: PANTOPRAZOLE 40 MG TABLET.DR PO SCH (08:44)
[2020-04-09] MEDS: AMLODIPINE BESYLATE 5 MG TABLET PO SCH (08:45)
[2020-04-09] MEDS: GLUCERNA SHAKE 237 ML CAN PO SCH ×2 (08:45→17:00)
[2020-04-09] MEDS: CARVEDILOL 12.5 MG TABLET PO SCH ×2 (08:45→17:00)
[2020-04-09] MEDS: ENOXAPARIN SODIUM 40 MG/0.4 ML DISP.SYRIN SQ SCH ×2 (08:54→21:51)
[2020-04-09] MEDS: INSULIN REGULAR, HUMAN 100 UNIT/ML 3 ML VIAL SQ PRN ×3 (09:19→17:30)
[2020-04-09] MEDS: INSULIN GLARGINE, 100 UNIT/ML CARTRIDGE SQ SCH (09:20)
[2020-04-09 10:41] LABS: ALBUMIN 2.4 g/dL (3.4-5.0); BILIRUBIN,DIRECT 0.2 mg/dL (0.0-0.2); BILIRUBIN,TOTAL 0.7 mg/dL (0.2-1.0); CALCIUM, SERUM 8.1 mg/dL (8.5-10.1); CREATININE 0.9 mg/dL (0.6-1.3); POTASSIUM 4.1 mmol/L (3.5-5.1); TOTAL PROTEIN, SERUM 6.5 g/dL (6.4-8.2)
[2020-04-09 12:00] VITALS: BP 123/61
[2020-04-09 16:00] VITALS: BP 109/55
--- NOTE | 2020-04-09 18:48 | NUR ---
BUSINESS DEVELOPMENT OFFICER CLOSING NOTES PT RESTING IN BED. ON NRB MASK 15L AND HF 40L, FIO2 100%, SPO2 @85-95%. NO SOB OR ANY ACUTE DISTRESS NOTED AT THIS TIME. SR ON TELE-MONITOR. IV LINES INTACT, PATENT AND FLUSHED. NEEDS ATTENDED. NO SIGNIFICANT CHANGES. NO PAIN REPORTED. SAFETY MEASURES IN PLACE. CALL LIGHT WITHIN REACH. HOB ELEVATED. WILL ENDORSE TO NIGHT NURSE FOR RAFI.
--- NOTE | 2020-04-09 19:00 | NUR ---
RECEIVED PATIENT IN BED, A/OX4 BREATHING EVEN AND UNLABORED,ABLE TO VERBALIZED NEEDS ON NON - REBREATHER MASK AND HIGH FLOW NC, 40L, 100%FIO2, SPO2 IS 86-93%, , NORMAL SINUS RHYTHM ON TELE-MONITOR WITH HR 60-80S, IV LINES PATENT ,INTACT AND FLUSHED , SAFETY MEASURES IN PLACE, CALL LIGHT IN REACH, HOB ELEVATED, WILL CONT TO MONITOR .
[2020-04-09 20:00] VITALS: BP 119/57
[2020-04-09] MEDS: SIMVASTATIN 10 MG TABLET PO SCH (21:04)
[2020-04-09] MEDS: LATANOPROST EYE DROP 0.005% 2.5 ML BOTTLE EACHEYE SCH (21:05)
[2020-04-09] MEDS: *INSULIN REGULAR(HUMULIN R)HUM 100 UNIT/ML VIAL SQ PRN (21:53)
[2020-04-10] VITALS: BP 124/73
[2020-04-10 04:00] VITALS: BP 116/70
[2020-04-10] MEDS: DEXAMETHASONE SOD PHOSPHATE 4 MG/ML VIAL IV SCH ×3 (04:12→21:17)
--- NOTE | 2020-04-10 06:51 | NUR ---
PT ON BED ASLEEP EASY TO WAKE UP A/O X3 STILL ON HIGH FLOW 40L 100% FIO2 AND NON REBREATHER MASK 15L WITH SPO2 90% NO DISTRESS NOTED NO PAIN COMPLAINED NO SIGNIFICANT CHANGES ON CONDITION NOTED ALL NEEDS ATTENDED BED ON LOWEST POSITION AND LOCKED SIDE RAILS UP X2 CALL LIGHT WITHIN REACH WILL ENDORSED TO AM SHIFT NURSE
--- NOTE | 2020-04-10 07:15 | NUR ---
RN OPENING NOTE: PATIENT RECEIVED IN BED WITH NO COMPLAINTS OF PAIN RESTING IN SEMI-FOWLERS POSITION. PATIENT IS ON O2 THERAPY VIA HFNC 40 LPM 100% + NRB AT 15 LPM. PATIENT IS TOLERATING WELL. REPOSITIONING HELPS WITH OXYGEN SATURATION. IV ACCESS MAINTAINED INTACT, SECURED AND FLUSHING WELL. ISOLATION PRECAUTIONS MAINTAINED. SAFETY MEASURES IMPLEMENTED, BED LOCKED IN LOWEST POSITION, SIDE RAILS UP, CALL LIGHT WITHIN REACH. WILL CONTINUE TO MONITOR PATIENT AND PROVIDE CARE THROUGHOUT SHIFT.
[2020-04-10 08:00] VITALS: BP 128/71
[2020-04-10] MEDS: BLOOD SUGAR DIAGNOSTIC 1 EACH STRIP VI SCH ×4 (08:09→21:45)
[2020-04-10] MEDS: PANTOPRAZOLE 40 MG TABLET.DR PO SCH (08:17)
[2020-04-10] MEDS: ASPIRIN 81 MG TAB.CHEW PO SCH (08:17)
[2020-04-10] MEDS: TAMSULOSIN 0.4 MG CAP.SR.24H PO SCH (08:18)
[2020-04-10] MEDS: CARVEDILOL 12.5 MG TABLET PO SCH ×2 (08:18→16:49)
[2020-04-10] MEDS: AMLODIPINE BESYLATE 5 MG TABLET PO SCH (08:19)
[2020-04-10] MEDS: FINASTERIDE (5 MG) 5 MG TABLET PO SCH (08:19)
[2020-04-10] MEDS: INSULIN GLARGINE, 100 UNIT/ML CARTRIDGE SQ SCH (08:21)
[2020-04-10] MEDS: ENOXAPARIN SODIUM 40 MG/0.4 ML DISP.SYRIN SQ SCH ×2 (08:22→21:19)
[2020-04-10] MEDS: INSULIN REGULAR, HUMAN 100 UNIT/ML 3 ML VIAL SQ PRN ×3 (08:35→16:55)
[2020-04-10] MEDS: GLUCERNA SHAKE 237 ML CAN PO SCH ×2 (08:35→17:49)
[2020-04-10 09:00] LABS: HEMATOCRIT 42 % (39-51); HEMOGLOBIN 13.9 g/dL (13.5-17.5); LYMPHOCYTES # (AUTO) 0.2 /CMM (0.8-4.8); LYMPHOCYTES % (AUTO) 3.3 % (20.0-44.0); MEAN CORPUSCULAR HGB CONC 33 g/dl (31.0-36.0); MEAN CORPUSCULAR VOLUME 83 fL (80-96); MONOCYTES # (AUTO) 0.2 /CMM (0.1-1.30); MONOCYTES % (AUTO) 2.5 % (2.0-12.0); NEUTROPHILS % (AUTO) 94.2 % (43.0-81.0); PLATELET COUNT (AUTO) 177 /CMM (150-450); RED BLOOD CELL COUNT(AUTO) 5.08 MIL/uL (4.5-6.0); WHITE BLOOD COUNT (AUTO) 7.4 K/uL (4.3-11.0)
[2020-04-10 09:45] LABS: ALBUMIN 2.4 g/dL (3.4-5.0); BILIRUBIN,TOTAL 0.7 mg/dL (0.2-1.0); CALCIUM, SERUM 8.4 mg/dL (8.5-10.1); CREATININE 0.8 mg/dL (0.6-1.3); POTASSIUM 4.5 mmol/L (3.5-5.1); TOTAL PROTEIN, SERUM 6.4 g/dL (6.4-8.2)
[2020-04-10 12:00] VITALS: BP 112/60
[2020-04-10 14:56] LABS: C-REACTIVE PROTEIN 1.6 mg/dL (0.0-0.9)
[2020-04-10 16:00] VITALS: BP 133/61
--- NOTE | 2020-04-10 18:47 | NUR ---
RN CLOSING NOTE: PATIENT RECEIVED IN BED WITH NO COMPLAINTS OF PAIN RESTING IN SEMI-FOWLERS POSITION. PATIENT IS ON O2 THERAPY VIA HFNC 40 LPM 100% + NRB AT 15 LPM. PATIENT IS TOLERATING WELL. REPOSITIONING HELPS WITH OXYGEN SATURATION. IV ACCESS MAINTAINED INTACT, SECURED AND FLUSHING WELL. ISOLATION PRECAUTIONS MAINTAINED. SAFETY MEASURES IMPLEMENTED, BED LOCKED IN LOWEST POSITION, SIDE RAILS UP, CALL LIGHT WITHIN REACH. WILL ENDORSE CARE TO UPCOMING SHIFT.
--- NOTE | 2020-04-10 19:15 | NUR ---
"RN OPENING NOTES: RECEIVED PT A/OX3-4 IN BED RESTING COMFORTABLY. PATIENT IN NO S/SX OF ACUTE DISTRESS AT THIS TIME. NO SOB NOTED. PATIENT'S BREATHING IS EVEN AND UNLABORED. PATIENT IS ON 40L |100% OF OXYGEN VIA HIGH FLOW NC AND 15L |100% 02 VIA NRB MASK; TOLERATING WELL. PATIENT ON TELE MONITORING READING SINUS RHYTHM HR IS @70 AT THE TIME OF RECEIVED. PATIENT ON CCHO DIET; TOLERATES WELL. NOTED IV SITE ON L HAND #20, R AC #20 AND R UA MIDLINE; PATENT, INTACT AND FLUSHING WELL; NO S/S OF INFECTION OR INFILTRATION.SAFETY MEASURES HAVE BEEN PROVIDED AND IMPLEMENTED. PATIENT BED ALARM IS ON. HEAD OF BED ELEVATED. BED IS LOCKED, IN LOWEST POSITION AND SIDE RAILS UP. CALL LIGHT WITHIN REACH OF THE PATIENT. APPLICABLE ISOLATION PRECAUTIONS IN PLACE. WILL CONTINUE TO MONITOR AND REASSESS FOR ANY CHANGES AND WILL CARRY OUT ANY ONGOING AND ACTIVE MD ORDER."
[2020-04-10 20:00] VITALS: BP 114/57
[2020-04-10] MEDS: LATANOPROST EYE DROP 0.005% 2.5 ML BOTTLE EACHEYE SCH (21:16)
[2020-04-10] MEDS: SIMVASTATIN 10 MG TABLET PO SCH (21:20)
[2020-04-10] MEDS: *INSULIN REGULAR(HUMULIN R)HUM 100 UNIT/ML VIAL SQ PRN (21:49)
--- NOTE | 2020-04-10 23:00 | NUR ---
RN NOTES PATIENT REMAINS IN NO ACUTE RESPIRATORY DISTRESS AT THIS TIME, NO CHANGES TO CONDITION/STATUS. SHINE WORKER WELL AWARE. WILL CONTINUE TO MONITOR AND REASSESS FOR ANY CHANGES THROUGHOUT THE SHIFT
--- NOTE | 2020-04-10 23:25 | NUR ---
RN NOTES PATIENT'S FAMILY CALLED TO GET UPDATES. SPOKE WITH MAURICIO, PROVIDED GENERAL UPDATES ABOUT PT'S CONDITION. ADVISED PT'S RELATIVE TO CALLBACK IN THE MORNING TO TALK TO MD FOR MORE SPECIFIC INFO ABOUT TREATMENT PLAN. ASSURED PATIENT RELATIVE THAT WILL KEEP THEM POSTED FOR ANY SUDDEN CHANGES TO PT'S CONDITION. FAMILY VERY THANKFUL ABOUT CARE BEING PROVIDED TO THE PATIENT. RN ACKNOWLEDGED. SURVEILLANCE SPECIALIST MADE AWARE.
[2020-04-11] VITALS (7 sets, daily range): BP systolic 91–143; BP diastolic 45–81
--- NOTE | 2020-04-11 03:00 | NUR ---
RN NOTES NO CHANGES IN PATIENT CONDITION AT THIS TIME PATIENT VITALS STABLE, NO SIGNS OF ACUTE RESPIRATORY DISTRESS. PATIENT STILL IN BED SLEEPING COMFORTABLY. NO COMPLAINTS OF PAIN OR ANY DISCOMFORT AT THIS TIME. WILL CONTINUE TO MONITOR AND REASSESS FOR ANY CHANGES THROUGHOUT THE SHIFT.
--- NOTE | 2020-04-11 04:06 | NUR ---
"RN OPENING NOTES: RECEIVED PT A/OX3-4 IN BED RESTING COMFORTABLY. PATIENT IN NO S/SX OF ACUTE DISTRESS AT THIS TIME. NO SOB NOTED. PATIENT'S BREATHING IS EVEN AND UNLABORED. PATIENT IS ON 40L |100% OF OXYGEN VIA HIGH FLOW NC AND 15L |100% 02 VIA NRB MASK; TOLERATING WELL. PATIENT ON TELE MONITORING READING SINUS RHYTHM HR IS @70 AT THE TIME OF RECEIVED. PATIENT ON CCHO DIET; TOLERATES WELL. NOTED IV SITE ON L HAND #20, R AC #20 AND R UA MIDLINE; PATENT, INTACT AND FLUSHING WELL; NO S/S OF INFECTION OR INFILTRATION.SAFETY MEASURES HAVE BEEN PROVIDED AND IMPLEMENTED. PATIENT BED ALARM IS ON. HEAD OF BED ELEVATED. BED IS LOCKED, IN LOWEST POSITION AND SIDE RAILS UP. CALL LIGHT WITHIN REACH OF THE PATIENT. APPLICABLE ISOLATION PRECAUTIONS IN PLACE. WILL CONTINUE TO MONITOR AND REASSESS FOR ANY CHANGES AND WILL CARRY OUT ANY ONGOING AND ACTIVE MD ORDER. Addendum: 04/11/20 at 0630 by DEIDRE DEVRIES RN PLS DISREGARD WRING TIME ENTRY"
[2020-04-11] MEDS: DEXAMETHASONE SOD PHOSPHATE 4 MG/ML VIAL IV SCH ×3 (04:21→20:28)
--- NOTE | 2020-04-11 06:50 | NUR ---
"RN CLOSING NOTE: PATIENT REMAINS IN ROOM RESTING COMFORTABLY.NO SIGNS OF RESPIRATORY DISTRESS PATIENT STILL ON 40L |100% OF OXYGEN VIA HIGH FLOW NC AND 15L |100% 02 VIA NRB MASK ;TOLERATING WELL SATURATING @ >95% SP02.SAFETY MEASURES IMPLEMENTED, BED IN LOWEST POSITION, LOCKED, SIDE RAILS UP, CALL LIGHT WITHIN REACH. ALL NEEDS AND ORDERS ADDRESSED DURING THE SHIFT. IV ACCESS MAINTAINED INTACT, SECURED AND FLUSHING WELL. ALL DUE MEDS GIVEN ORDERED & SCHEDULED ; PATIENT TOLERATED WELL. PATIENT KEPT CLEAN AND COMFORTABLE WITHIN THE SHIFT. PATIENT ENDORSED TO INCOMING SHIFT RN WITH STABLE VITAL SIGN AND FOR CONTINUITY OF CARE."
[2020-04-11 07:01] LABS: ALBUMIN 2.3 g/dL (3.4-5.0); BILIRUBIN,TOTAL 0.7 mg/dL (0.2-1.0); CALCIUM, SERUM 8.4 mg/dL (8.5-10.1); CREATININE 0.9 mg/dL (0.6-1.3); POTASSIUM 4.4 mmol/L (3.5-5.1); TOTAL PROTEIN, SERUM 6.2 g/dL (6.4-8.2)
--- NOTE | 2020-04-11 07:10 | NUR ---
RN OPENING NOTE: PATIENT IN BED WITH NO COMPLAINTS OF PAIN RESTING IN SEMI-FOWLERS POSITION. PATIENT IS ON O2 THERAPY VIA HFNC 40 LPM 100% + NRB AT 15 LPM. PATIENT IS TOLERATING WELL. REPOSITIONING HELPS WITH OXYGEN SATURATION. IV ACCESS MAINTAINED INTACT, SECURED AND FLUSHING WELL. ISOLATION PRECAUTIONS MAINTAINED. SAFETY MEASURES IMPLEMENTED, BED LOCKED IN LOWEST POSITION, SIDE RAILS UP, CALL LIGHT WITHIN REACH. WILL CONTINUE TO MONITOR PATIENT AND PROVIDE CARE THROUGHOUT SHIFT.
[2020-04-11] MEDS: PANTOPRAZOLE 40 MG TABLET.DR PO SCH (07:30)
[2020-04-11] MEDS: BLOOD SUGAR DIAGNOSTIC 1 EACH STRIP VI SCH ×4 (07:30→21:33)
[2020-04-11] MEDS: GLUCERNA SHAKE 237 ML CAN PO SCH ×2 (08:00→17:16)
[2020-04-11] MEDS: AMLODIPINE BESYLATE 5 MG TABLET PO SCH (09:00)
[2020-04-11] MEDS: CARVEDILOL 12.5 MG TABLET PO SCH ×2 (09:00→16:47)
[2020-04-11] MEDS: ASPIRIN 81 MG TAB.CHEW PO SCH (09:38)
[2020-04-11] MEDS: INSULIN GLARGINE, 100 UNIT/ML CARTRIDGE SQ SCH (09:39)
[2020-04-11] MEDS: TAMSULOSIN 0.4 MG CAP.SR.24H PO SCH (09:39)
[2020-04-11] MEDS: FINASTERIDE (5 MG) 5 MG TABLET PO SCH (09:39)
[2020-04-11] MEDS: ENOXAPARIN SODIUM 40 MG/0.4 ML DISP.SYRIN SQ SCH ×2 (09:40→20:31)
[2020-04-11] MEDS: INSULIN REGULAR, HUMAN 100 UNIT/ML 3 ML VIAL SQ PRN (11:59)
[2020-04-11 15:58] LABS: C-REACTIVE PROTEIN 1.5 mg/dL (0.0-0.9)
--- NOTE | 2020-04-11 18:27 | NUR ---
TELE CLOSING NOTES PATIENT IN BED WITH NO COMPLAINTS OF PAIN.RESTING IN HIGH-FOWLERS POSITION. PATIENT IS ON O2 THERAPY VIA HFNC 40 LPM 100% + NRB AT 15 LPM. PATIENT IS TOLERATING WELL. REPOSITIONING HELPS WITH OXYGEN SATURATION. IV ACCESS MAINTAINED INTACT, SECURED AND FLUSHING WELL. ISOLATION PRECAUTIONS MAINTAINED. NO S/S OF HYPO/HYPERGLYCEMIA OBSERVED. PT IS REMAINED TO KEEP OXYGEN ON AT ALL TIMES DUE TO PT DESATURATES FAST. PT VERBALIZES UNDERSTANDING. NO RESPIRATORY DISTRESS NOTED AT THIS TIME. RESPIRATIONS EVEN AND UNLABORED. SKIN KEPT CLEAN AND DRY. GOOD FLUID INTAKE OBSERVED THROUGH OUT THE SHIFT. SAFETY MEASURES IMPLEMENTED, BED LOCKED IN LOWEST POSITION, SIDE RAILS UP, CALL LIGHT WITHIN REACH. NO SIGNIFICANT CHANGES OBSERVED. WILL ENDORSE CARE TO INCOMING NURSE.
--- NOTE | 2020-04-11 19:20 | NUR ---
"RN OPENING NOTES: RECEIVED PT A/OX3-4 IN BED SLEEPING COMFORTABLY. PATIENT IN NO S/SX OF ACUTE DISTRESS AT THIS TIME. NO SOB NOTED. PATIENT'S BREATHING IS EVEN AND UNLABORED. PATIENT IS ON 40L |100% OF OXYGEN VIA HIGH FLOW NC AND 15L |100% 02 VIA NRB MASK; TOLERATING WELL. PATIENT ON TELE MONITORING READING SINUS RHYTHM HR IS @70s AT THE TIME OF RECEIVED. PATIENT ON CCHO DIET; TOLERATES WELL. NOTED IV SITE ON L HAND #20, R AC #20 AND R UA MIDLINE; PATENT, INTACT AND FLUSHING WELL; NO S/S OF INFECTION OR INFILTRATION. SAFETY MEASURES HAVE BEEN PROVIDED AND IMPLEMENTED. PATIENT BED ALARM IS ON. HEAD OF BED ELEVATED. BED IS LOCKED, IN LOWEST POSITION AND SIDE RAILS UP. CALL LIGHT WITHIN REACH OF THE PATIENT. APPLICABLE ISOLATION PRECAUTIONS IN PLACE. WILL CONTINUE TO MONITOR AND REASSESS FOR ANY CHANGES AND WILL CARRY OUT ANY ONGOING AND ACTIVE MD ORDER."
[2020-04-11] MEDS: SIMVASTATIN 10 MG TABLET PO SCH (21:33)
[2020-04-11] MEDS: LATANOPROST EYE DROP 0.005% 2.5 ML BOTTLE EACHEYE SCH (21:33)
[2020-04-11] MEDS: *INSULIN REGULAR(HUMULIN R)HUM 100 UNIT/ML VIAL SQ PRN (21:53)
--- NOTE | 2020-04-11 23:00 | NUR ---
RN NOTES PATIENT REMAINS IN NO ACUTE RESPIRATORY DISTRESS AT THIS TIME, NO CHANGES TO CONDITION/STATUS. LIVESTOCK INSPECTOR WELL AWARE. WILL CONTINUE TO MONITOR AND REASSESS FOR ANY CHANGES THROUGHOUT THE SHIFT
[2020-04-12] VITALS: BP 103/50
--- NOTE | 2020-04-12 03:00 | NUR ---
RN NOTES NO CHANGES IN PATIENT CONDITION AT THIS TIME PATIENT VITALS STABLE, NO SIGNS OF ACUTE RESPIRATORY DISTRESS, O2 SAT IS AT 96% AT THIS TIME. PATIENT STILL IN BED SLEEPING COMFORTABLY. NO COMPLAINTS OF PAIN OR ANY DISCOMFORT AT THIS TIME. WILL CONTINUE TO MONITOR AND REASSESS FOR ANY CHANGES THROUGHOUT THE SHIFT.
[2020-04-12 04:00] VITALS: BP 99/58
[2020-04-12] MEDS: DEXAMETHASONE SOD PHOSPHATE 4 MG/ML VIAL IV SCH ×2 (04:03→17:27)
--- NOTE | 2020-04-12 06:39 | NUR ---
RN CLOSING NOTE: PATIENT REMAINS IN ROOM IN NO SIGNS OF RESPIRATORY DISTRESS, PATIENT STILL ON HIGHFLOW 40L 100% AND 15L NRB MASK ;TOLERATTING WELL SATURATING @ 96% 02. SAFETY MEASURES IMPLEMENTED, BED IN LOWEST POSITION, LOCKED, SIDE RAILS UP, CALL LIGHT WITHIN REACH. ALL NEEDS AND ORDERS ADDRESSED DURING THE SHIFT. IV ACCESS MAINTAINED INTACT, SECURED AND FLUSHING WELL. ALL DUE MEDS GIVEN ORDERED & SCHEDULED ; PATIENT TOLERATED WELL. PATIENT KEPT CLEAN AND COMFORTABLE WITHIN THE SHIFT. PATIENT ENDORSED TO INCOMING SHIFT RN WITH STABLE VITAL SIGN AND FOR CONTINUITY OF CARE.
[2020-04-12] MEDS: PANTOPRAZOLE 40 MG TABLET.DR PO SCH (07:30)
[2020-04-12] MEDS: BLOOD SUGAR DIAGNOSTIC 1 EACH STRIP VI SCH ×4 (07:30→21:09)
--- NOTE | 2020-04-12 07:30 | NUR ---
RN OPENING NOTES PATIENT IN BED, A/O X3. PATIENT IS ON O2 THERAPY VIA HFNC 40 LPM 100% + NRB AT 15 LPM. PATIENT IS TOLERATING WELL. REPOSITIONING HELPS WITH OXYGEN SATURATION. IV ACCESS MAINTAINED INTACT, SECURED AND FLUSHING WELL. ISOLATION PRECAUTIONS MAINTAINED. SAFETY MEASURES IMPLEMENTED, BED LOCKED IN LOWEST POSITION, SIDE RAILS UP, CALL LIGHT WITHIN REACH. WILL CONTINUE TO MONITOR.
[2020-04-12 08:00] VITALS: BP 123/60
[2020-04-12] MEDS: TAMSULOSIN 0.4 MG CAP.SR.24H PO SCH (08:37)
[2020-04-12] MEDS: AMLODIPINE BESYLATE 5 MG TABLET PO SCH (08:38)
[2020-04-12] MEDS: CARVEDILOL 12.5 MG TABLET PO SCH ×2 (08:38→17:28)
[2020-04-12] MEDS: ASPIRIN 81 MG TAB.CHEW PO SCH (08:38)
[2020-04-12] MEDS: FINASTERIDE (5 MG) 5 MG TABLET PO SCH (08:38)
[2020-04-12] MEDS: ENOXAPARIN SODIUM 40 MG/0.4 ML DISP.SYRIN SQ SCH ×2 (08:40→21:11)
[2020-04-12] MEDS: GLUCERNA SHAKE 237 ML CAN PO SCH ×2 (08:59→17:28)
[2020-04-12] MEDS: *INSULIN REGULAR(HUMULIN R)HUM 100 UNIT/ML VIAL SQ PRN ×2 (09:07→21:10)
[2020-04-12] MEDS: INSULIN GLARGINE, 100 UNIT/ML CARTRIDGE SQ SCH (09:17)
[2020-04-12 12:00] VITALS: BP 106/43
[2020-04-12] MEDS: INSULIN REGULAR, HUMAN 100 UNIT/ML 3 ML VIAL SQ PRN (12:22)
[2020-04-12 16:00] VITALS: BP 106/43
--- NOTE | 2020-04-12 18:34 | NUR ---
RN CLOSING NOTES PATIENT RECEIVED IN BED WITH NO COMPLAINTS OF PAIN RESTING IN SEMI-FOWLERS POSITION. PATIENT IS ON O2 THERAPY VIA HFNC 40 LPM 100% + NRB AT 15 LPM. PATIENT IS TOLERATING WELL. REPOSITIONING HELPS WITH OXYGEN SATURATION. IV ACCESS MAINTAINED INTACT, SECURED AND FLUSHING WELL. ISOLATION PRECAUTIONS MAINTAINED. SAFETY MEASURES IMPLEMENTED, BED LOCKED IN LOWEST POSITION, SIDE RAILS UP, CALL LIGHT WITHIN REACH. WILL ENDORSE CARE TO SHIFT.
--- NOTE | 2020-04-12 19:10 | NUR ---
RECEIVED PATIENT IN BED, A/OX4 BREATHING EVEN AND UNLABORED,ABLE TO VERBALIZED NEEDS ON NON - REBREATHER MASK AND HIGH FLOW NC, 40L, 100%FIO2, SPO2 IS 88-91%, , NORMAL SINUS RHYTHM ON TELE-MONITOR WITH HR 60-80S, IV LINES PATENT ,INTACT AND FLUSHED , SAFETY MEASURES IN PLACE, CALL LIGHT IN REACH, HOB ELEVATED, WILL CONT TO MONITOR .
[2020-04-12 20:00] VITALS: BP 102/42
[2020-04-12] MEDS: SIMVASTATIN 10 MG TABLET PO SCH (21:09)
[2020-04-12] MEDS: LATANOPROST EYE DROP 0.005% 2.5 ML BOTTLE EACHEYE SCH (21:09)
[2020-04-13] VITALS: BP 120/61
[2020-04-13 04:00] VITALS: BP 96/53
--- NOTE | 2020-04-13 06:49 | NUR ---
PT ON BED AWAKE A/O X3 STILL ON HIGH FLOW 40L 100% FIO2 AND NON REBREATHER MASK 15L WITH SPO2 90% NO DISTRESS NOTED NO PAIN COMPLAINED NO SIGNIFICANT CHANGES ON CONDITION NOTED TELE MONITOR READ SINUS RHYTHM 80S ALL NEEDS ATTENDED BED ON LOWEST POSITION AND LOCKED SIDE RAILS UP X2 CALL LIGHT WITHIN REACH WILL ENDORSED TO AM SHIFT NURSE
[2020-04-13 07:06] LABS: BASOPHILS % (AUTO) 0.1 % (0.0-2.0); EOSINOPHILS % (AUTO) 2.5 % (0.0-6.0); HEMATOCRIT 44 % (39-51); HEMOGLOBIN 14.4 g/dL (13.5-17.5); LYMPHOCYTES # (AUTO) 0.4 /CMM (0.8-4.8); LYMPHOCYTES % (AUTO) 3.8 % (20.0-44.0); MEAN CORPUSCULAR HGB CONC 33 g/dl (31.0-36.0); MEAN CORPUSCULAR VOLUME 81 fL (80-96); MONOCYTES # (AUTO) 0.1 /CMM (0.1-1.30); MONOCYTES % (AUTO) 1.3 % (2.0-12.0); NEUTROPHILS # (AUTO) 10.1 /CMM (1.8-8.9); NEUTROPHILS % (AUTO) 92.3 % (43.0-81.0); PLATELET COUNT (AUTO) 150 /CMM (150-450); RED BLOOD CELL COUNT(AUTO) 5.44 MIL/uL (4.5-6.0)
--- NOTE | 2020-04-13 07:24 | NUR ---
RN OPENING NOTE: PATIENT IN BED WITH NO COMPLAINTS OF PAIN RESTING IN SEMI-FOWLERS POSITION. PATIENT IS ON O2 THERAPY VIA HFNC 40 LPM 100% + NRB AT 15 LPM. PATIENT IS TOLERATING WELL. IV ACCESS MAINTAINED INTACT, SECURED AND FLUSHING WELL. ISOLATION PRECAUTIONS MAINTAINED. SAFETY MEASURES IMPLEMENTED, BED LOCKED IN LOWEST POSITION, SIDE RAILS UP, CALL LIGHT WITHIN REACH. WILL CONTINUE TO MONITOR PATIENT AND PROVIDE CARE THROUGHOUT SHIFT.
[2020-04-13 07:52] LABS: CALCIUM, SERUM 8.5 mg/dL (8.5-10.1); CREATININE 0.9 mg/dL (0.6-1.3); POTASSIUM 3.9 mmol/L (3.5-5.1)
[2020-04-13 08:00] VITALS: BP_SYST 104; BP_SYST 109; BP_DIAS 49
[2020-04-13 08:11] LABS: C-REACTIVE PROTEIN 4.1 mg/dL (0.0-0.9)
[2020-04-13] MEDS: BLOOD SUGAR DIAGNOSTIC 1 EACH STRIP VI SCH ×4 (08:13→21:19)
[2020-04-13] MEDS: TAMSULOSIN 0.4 MG CAP.SR.24H PO SCH (08:20)
[2020-04-13] MEDS: PANTOPRAZOLE 40 MG TABLET.DR PO SCH (08:20)
[2020-04-13] MEDS: ASPIRIN 81 MG TAB.CHEW PO SCH (08:20)
[2020-04-13] MEDS: FINASTERIDE (5 MG) 5 MG TABLET PO SCH (08:21)
[2020-04-13] MEDS: CARVEDILOL 12.5 MG TABLET PO SCH ×2 (08:21→16:30)
[2020-04-13] MEDS: DEXAMETHASONE SOD PHOSPHATE 4 MG/ML VIAL IV SCH ×3 (08:21→21:19)
[2020-04-13] MEDS: AMLODIPINE BESYLATE 5 MG TABLET PO SCH (08:22)
[2020-04-13] MEDS: ENOXAPARIN SODIUM 40 MG/0.4 ML DISP.SYRIN SQ SCH ×2 (08:28→21:18)
[2020-04-13] MEDS: INSULIN GLARGINE, 100 UNIT/ML CARTRIDGE SQ SCH (08:28)
[2020-04-13] MEDS: GLUCERNA SHAKE 237 ML CAN PO SCH ×2 (08:42→17:56)
[2020-04-13] MEDS: ACETAMINOPHEN 325 MG TABLET PO PRN ×2 (09:42→21:20)
[2020-04-13 12:00] VITALS: BP 107/59
[2020-04-13] MEDS: INSULIN REGULAR, HUMAN 100 UNIT/ML 3 ML VIAL SQ PRN (12:31)
[2020-04-13 16:00] VITALS: BP 101/49
--- NOTE | 2020-04-13 18:47 | NUR ---
RN CLOSING NOTE: PATIENT IN BED WITH NO COMPLAINTS OF PAIN RESTING IN SEMI-FOWLERS POSITION. PATIENT IS ON O2 THERAPY VIA HFNC 40 LPM 100% + NRB AT 15 LPM. PATIENT IS TOLERATING WELL. IV ACCESS MAINTAINED INTACT, SECURED AND FLUSHING WELL. ISOLATION PRECAUTIONS MAINTAINED. TYELENOL PRN ADMINSTERED FOR LEFT SHOULDER PAIN. MEDICATION WAS EFFECTIVE IN ALLEVIATING PAIN. SAFETY MEASURES IMPLEMENTED, BED LOCKED IN LOWEST POSITION, SIDE RAILS UP, CALL LIGHT WITHIN REACH. WILL ENDORSE CONTINUATION OF CARE TO UPCOMING SHIFT.
--- NOTE | 2020-04-13 19:35 | NUR ---
RN OPENING NOTES RECEIVED PT IN BED AWAKE, A/O X4. ON 15L NRB WITH 40L ON HIGH FLOW FIO2 100%. SATURATION 91% NO RESP DISTRESS OR SOB AT THIS TIME. PT BREATHING IS EVEN AND UNLABORED. PT ON TELE MONITOR IS NSR. HR 80S. IV SITES FLUSHED. LEFT HAND IV SITE OCCLUDED, REMOVED REINFORCED WITH GAUZE AND PRESSURE, CATHETER INTACT. NO S/S OF BLEEDING NOTED. PT DENIES PAIN, IS AFEBRILE AT THIS TIME. ISOLATION PRECAUTIONS IN PLACE. SAFETY MEASURES IN PLACE. HOB ELEVATED TOLERATED. SIDE RAILS UP X2. BED IS LOCKED IN LOWEST POSITION. CALL LIGHT WITHIN REACH. WILL CONT TO MONITOR.
[2020-04-13 20:00] VITALS: BP 103/54
[2020-04-13] MEDS: SIMVASTATIN 10 MG TABLET PO SCH (21:19)
[2020-04-13] MEDS: LATANOPROST EYE DROP 0.005% 2.5 ML BOTTLE EACHEYE SCH (21:19)
[2020-04-13] MEDS: *INSULIN REGULAR(HUMULIN R)HUM 100 UNIT/ML VIAL SQ PRN (21:42)
[2020-04-14] VITALS: BP 126/72
[2020-04-14 04:00] VITALS: BP 129/73
[2020-04-14] MEDS: DEXAMETHASONE SOD PHOSPHATE 4 MG/ML VIAL IV SCH ×3 (04:35→21:01)
[2020-04-14] MEDS: ACETAMINOPHEN 325 MG TABLET PO PRN (04:35)
--- NOTE | 2020-04-14 07:01 | NUR ---
RN CLOSING NOTES NO CHANGE IN PT CONDITION. STILL ON 15 NRB AND 40L FIO2 100% HIGH FLOW. SATURATING 90-92% NO RESP DISTRESS OR SOB. NEEDS ATTENDED. HYGIENE PRODUCTS PROVIDED. DENIES PAIN, AFEBRILE. SAFETY MEASURES IN PLACE HOB ELEVATED. SIDE RAILS UP X2. BED IS LOCKED IN LOWEST POSITION. CALL LIGHT WITHIN REACH. WILL ENDORSE TO AM NURSE FOR CONT OF CARE.
[2020-04-14 07:32] LABS: CALCIUM, SERUM 8.6 mg/dL (8.5-10.1); CREATININE 0.8 mg/dL (0.6-1.3); POTASSIUM 4.1 mmol/L (3.5-5.1)
[2020-04-14] MEDS: PANTOPRAZOLE 40 MG TABLET.DR PO SCH (07:59)
[2020-04-14] MEDS: BLOOD SUGAR DIAGNOSTIC 1 EACH STRIP VI SCH ×4 (07:59→21:46)
[2020-04-14 08:00] VITALS: BP 102/48
[2020-04-14] MEDS: GLUCERNA SHAKE 237 ML CAN PO SCH (08:00)
--- NOTE | 2020-04-14 08:00 | NUR ---
RN Opening note Received patient in bed, awake, able to responds all stimuli, Pt does no c/o pain or distress. Skin is warm to touch keep clean/dry intact IV site, respiratory even and unlabored with oxygen at 15Ls with NRM and HF at 40Ls Fio2 100% O2sat 90%. Kept locked bed with elevated HOB for aspiration precaution and ensure airway and lowest bed foe safety. Call light within reach, will continue to monitor.
[2020-04-14] MEDS: FINASTERIDE (5 MG) 5 MG TABLET PO SCH (08:56)
[2020-04-14] MEDS: TAMSULOSIN 0.4 MG CAP.SR.24H PO SCH (08:56)
[2020-04-14] MEDS: ASPIRIN 81 MG TAB.CHEW PO SCH (08:56)
[2020-04-14] MEDS: ENOXAPARIN SODIUM 40 MG/0.4 ML DISP.SYRIN SQ SCH ×2 (08:57→21:03)
[2020-04-14] MEDS: CARVEDILOL 12.5 MG TABLET PO SCH ×2 (08:59→16:56)
[2020-04-14] MEDS: AMLODIPINE BESYLATE 5 MG TABLET PO SCH (08:59)
[2020-04-14] MEDS: INSULIN GLARGINE, 100 UNIT/ML CARTRIDGE SQ SCH ×2 (09:00→11:52)
--- NOTE | 2020-04-14 09:00 | NUR ---
Patient BS 114 nad does not eat BKF, will hold Lantus st this time.
[2020-04-14 12:00] VITALS: BP 98/59
[2020-04-14 13:13] LABS: C-REACTIVE PROTEIN 19.3 mg/dL (0.0-0.9)
[2020-04-14 16:00] VITALS: BP 117/59
[2020-04-14] MEDS: *INSULIN REGULAR(HUMULIN R)HUM 100 UNIT/ML VIAL SQ PRN ×2 (16:52→21:53)
[2020-04-14] MEDS: HYDROCODONE/APAP 5/325MG TABLET PO PRN ×2 (16:54→23:25)
--- NOTE | 2020-04-14 18:42 | NUR ---
RN closing Patient in bed resting, does no appears distress or discomfort. Skin is warm to touch, keep clean/dry, intact midline on right upper arm. Respiratory even and unlabored with NRM and HF NC, O2sat 90-91%. Kept elevated HOB for ensure air way and aspiration precaution and lowest bed for safety. Call light within reach, will endorse repair servicer
[2020-04-14 20:00] VITALS: BP 122/64
[2020-04-14] MEDS: SIMVASTATIN 10 MG TABLET PO SCH (21:04)
[2020-04-14] MEDS: LATANOPROST EYE DROP 0.005% 2.5 ML BOTTLE EACHEYE SCH (21:04)
[2020-04-15] VITALS: BP 126/64
[2020-04-15 04:00] VITALS: BP 116/59
[2020-04-15] MEDS: DEXAMETHASONE SOD PHOSPHATE 4 MG/ML VIAL IV SCH ×3 (04:24→21:33)
--- NOTE | 2020-04-15 07:28 | NUR ---
RN CLOSING NOTES, Patient in bed, breathing even and unlabored, no sob/acute distress noted, on NRM and HF NC, O2sat 88-94%. Kept elevated HOB for ensure air way and aspiration precaution and lowest bed for safety. Call light within reach, will endorse continuity of care to oncoming nurse.
[2020-04-15] MEDS: BLOOD SUGAR DIAGNOSTIC 1 EACH STRIP VI SCH ×4 (07:51→21:34)
[2020-04-15] MEDS: PANTOPRAZOLE 40 MG TABLET.DR PO SCH (07:51)
[2020-04-15 08:00] VITALS: BP 123/63
[2020-04-15] MEDS: ASPIRIN 81 MG TAB.CHEW PO SCH (09:07)
[2020-04-15] MEDS: FINASTERIDE (5 MG) 5 MG TABLET PO SCH (09:07)
[2020-04-15] MEDS: TAMSULOSIN 0.4 MG CAP.SR.24H PO SCH (09:07)
[2020-04-15] MEDS: CARVEDILOL 12.5 MG TABLET PO SCH ×2 (09:08→17:19)
[2020-04-15] MEDS: AMLODIPINE BESYLATE 5 MG TABLET PO SCH (09:08)
[2020-04-15] MEDS: ENOXAPARIN SODIUM 40 MG/0.4 ML DISP.SYRIN SQ SCH ×2 (09:09→21:33)
[2020-04-15 12:00] VITALS: BP 110/62
[2020-04-15] MEDS: GUAIFENESIN/CODEINE 10 ML UDC PO PRN (12:00)
[2020-04-15] MEDS: INSULIN REGULAR, HUMAN 100 UNIT/ML 3 ML VIAL SQ PRN (12:28)
--- NOTE | 2020-04-15 13:29 | NUR ---
PT TRANSPORTS TO CHAIR STAND-BY ASSIST. PT OXYGENATION IMPROVES FROM 89% TO 95% WHILE SITTING
[2020-04-15 16:00] VITALS: BP 133/67
[2020-04-15] MEDS: *INSULIN REGULAR(HUMULIN R)HUM 100 UNIT/ML VIAL SQ PRN ×2 (17:34→21:32)
[2020-04-15] MEDS: SIMVASTATIN 10 MG TABLET PO SCH (21:34)
[2020-04-15] MEDS: LATANOPROST EYE DROP 0.005% 2.5 ML BOTTLE EACHEYE SCH (21:44)
--- NOTE | 2020-04-15 21:51 | NUR ---
REPORTS GIVEN TO WILSON CANO FOR CONTINUITY OF CARE.
--- NOTE | 2020-04-15 21:55 | NUR ---
BELL CLERK OPENING NOTES, PATIENT PRESENT IN BED, A/OX4, BREATHING EVEN AND UNLABORED, NO SOB/ACUTE DISTRESS NOTED, ON NON - REBREATHER MASK 15L AND HIGH FLOW NC, 40L, 100%FIO2, SPO2 IS 84-91%, AT THIS TIME, NSR ON TELE-MONITOR WITH HR 80S, JUMA MIDLINE IN PLACE PATENT AND INTACT, SAFETY MEASURES IN PLACE, CALL LIGHT IN REACH, HOB ELEVATED, WILL CONTINUE TO MONITOR CLOSELY
--- NOTE | 2020-04-15 22:30 | NUR ---
FACILITIES PLANT ENGINEER NOTES, RECEIVED CALL FROM MAURICIO BRADY FOR UPDATE, AND SHE WANTS CIRCLE SAW OPERATOR TO CALL HER TOMORROW, WILL ENDORSE TO DAY SHIFT.
[2020-04-16] VITALS: BP 112/69
[2020-04-16] MEDS: HYDROCODONE/APAP 5/325MG TABLET PO PRN ×2 (00:27→08:20)
[2020-04-16] MEDS: GUAIFENESIN/CODEINE 10 ML UDC PO PRN ×3 (03:55→21:11)
[2020-04-16 04:00] VITALS: BP 133/80
[2020-04-16] MEDS: DEXAMETHASONE SOD PHOSPHATE 4 MG/ML VIAL IV SCH ×3 (05:14→21:11)
--- NOTE | 2020-04-16 06:33 | NUR ---
CHAR CONVEYOR TENDER CELLAR CLOSING NOTES, PATIENT IN BED, A/OX4, ASLEEP AT THIS TIME, AROSE TO VERBAL STIMULI, BREATHING EVEN AND UNLABORED, NO SOB/ACUTE DISTRESS NOTED, ON NRM 15L AND HIGH FLOW NC, 40L, 100%FIO2, SPO2 IS 84-93%, DURING THE NIGHT, NSR ON TELE-MONITOR WITH HR 70-80S, JUMA MIDLINE IN PLACE PATENT AND INTACT, SAFETY MEASURES IN PLACE, CALL LIGHT IN REACH, HOB ELEVATED, WILL ENDORSE CONTINUITY OF CARE TO ONCOMING NURSE.
--- NOTE | 2020-04-16 07:34 | NUR ---
RECEIVED PATIENT RESTING IN BED. NO ACUTE DISTRESS NOTED. PATIENT A&OX4. PATIENT ON HI-FLOW, NR MASK, SATURATING BETWEEN 88-94%, RT AWARE. PATIENT JUMA MIDLINE INTACT, PATENT. PATIENT ON SEISMOLOGY TEACHER, NSR NOTED WITH HR IN 70S. PATIENT SAFETY MEASURES MAINTAINED. CALL LIGHT WITHIN REACH. WILL CONTINUE TO MONITOR.
[2020-04-16 07:48] LABS: C-REACTIVE PROTEIN 6.3 mg/dL (0.0-0.9)
[2020-04-16 08:00] VITALS: BP 133/61
[2020-04-16] MEDS: ASPIRIN 81 MG TAB.CHEW PO SCH (08:05)
[2020-04-16] MEDS: AMLODIPINE BESYLATE 5 MG TABLET PO SCH (08:05)
[2020-04-16] MEDS: PANTOPRAZOLE 40 MG TABLET.DR PO SCH (08:05)
[2020-04-16] MEDS: FINASTERIDE (5 MG) 5 MG TABLET PO SCH (08:05)
[2020-04-16] MEDS: CARVEDILOL 12.5 MG TABLET PO SCH ×2 (08:06→17:12)
[2020-04-16] MEDS: TAMSULOSIN 0.4 MG CAP.SR.24H PO SCH (08:06)
[2020-04-16] MEDS: BLOOD SUGAR DIAGNOSTIC 1 EACH STRIP VI SCH ×4 (08:06→22:06)
[2020-04-16] MEDS: ENOXAPARIN SODIUM 40 MG/0.4 ML DISP.SYRIN SQ SCH ×2 (08:07→21:08)
[2020-04-16] MEDS: INSULIN GLARGINE, 100 UNIT/ML CARTRIDGE SQ SCH (08:08)
[2020-04-16] MEDS: *INSULIN REGULAR(HUMULIN R)HUM 100 UNIT/ML VIAL SQ PRN ×2 (08:20→21:44)
[2020-04-16 11:31] LABS: CALCIUM, SERUM 8.8 mg/dL (8.5-10.1); CREATININE 0.9 mg/dL (0.6-1.3)
[2020-04-16 12:00] VITALS: BP 102/55
[2020-04-16] MEDS: INSULIN REGULAR, HUMAN 100 UNIT/ML 3 ML VIAL SQ PRN ×2 (12:17→17:26)
[2020-04-16 16:00] VITALS: BP 140/74
--- NOTE | 2020-04-16 18:36 | NUR ---
PATIENT RESTING IN BED. NO ACUTE DISTRESS NOTED. PATIENT A&OX4. PATIENT ON HI-FLOW, NR MASK, SATURATING BETWEEN 88-94%, RT AWARE. PATIENT JUMA MIDLINE INTACT, PATENT. PATIENT ON SUPERVISOR HARD CANDY, NSR NOTED WITH HR IN 70S. PATIENT SAFETY MEASURES MAINTAINED. CALL LIGHT WITHIN REACH. WILL ENDORSE PLAN OF CARE TO ONCOMING SHIFT
--- NOTE | 2020-04-16 19:48 | NUR ---
RN NOTE RECEIVED PT IN BED A/O X4, ON HF 40L , FIO2 100% SATING 90% AND 15 L NON REBREATHER, TELE MONITOR SHOWING SR IN 70s. SAFETY MEASURES IN PLACE.
[2020-04-16 20:00] VITALS: BP 113/54
[2020-04-16] MEDS: SIMVASTATIN 10 MG TABLET PO SCH (21:15)
[2020-04-16] MEDS: LATANOPROST EYE DROP 0.005% 2.5 ML BOTTLE EACHEYE SCH (22:05)
[2020-04-17] VITALS: BP 119/58
[2020-04-17] MEDS: GUAIFENESIN/CODEINE 10 ML UDC PO PRN ×5 (01:32→23:04)
[2020-04-17 04:00] VITALS: BP 109/64
[2020-04-17] MEDS: DEXAMETHASONE SOD PHOSPHATE 4 MG/ML VIAL IV SCH ×3 (05:14→20:29)
[2020-04-17] MEDS: BLOOD SUGAR DIAGNOSTIC 1 EACH STRIP VI SCH ×4 (06:58→21:50)
--- NOTE | 2020-04-17 07:18 | NUR ---
RN NOTE NO ACUTE CHANGES REPORT GIVEN TO INCOMING SHIFT FOR RAFI
[2020-04-17 08:00] VITALS: BP 113/44
--- NOTE | 2020-04-17 08:00 | NUR ---
BAND INSTRUMENT REPAIRER NOTE RECEIVED PATIENT RESTING IN BED. NO ACUTE DISTRESS NOTED. PATIENT A&OX4.WITH SLIGHT SOB NOTED PATIENT ON HI-FLOW, NR MASK 15 L , SATURATING BETWEEN 88-93%, RT AWARE. PATIENT JUMA MIDLINE INTACT, PATENT. PATIENT ON CONTRACTS OFFICER, NSR NOTED WITH HR IN 65. PATIENT SAFETY MEASURES MAINTAINED. CALL LIGHT WITHIN REACH. WILL CONTINUE TO MONITOR.
[2020-04-17] MEDS: ENOXAPARIN SODIUM 40 MG/0.4 ML DISP.SYRIN SQ SCH ×2 (08:08→20:30)
[2020-04-17] MEDS: INSULIN GLARGINE, 100 UNIT/ML CARTRIDGE SQ SCH (08:09)
[2020-04-17] MEDS: TAMSULOSIN 0.4 MG CAP.SR.24H PO SCH (08:10)
[2020-04-17] MEDS: AMLODIPINE BESYLATE 5 MG TABLET PO SCH (08:10)
[2020-04-17] MEDS: FINASTERIDE (5 MG) 5 MG TABLET PO SCH (08:10)
[2020-04-17] MEDS: CARVEDILOL 12.5 MG TABLET PO SCH ×2 (08:10→16:10)
[2020-04-17] MEDS: ASPIRIN 81 MG TAB.CHEW PO SCH (08:10)
[2020-04-17] MEDS: PANTOPRAZOLE 40 MG TABLET.DR PO SCH (08:10)
--- NOTE | 2020-04-17 11:35 | NUR ---
television news anchor note cough medication given Robitussin as ordered
--- NOTE | 2020-04-17 11:57 | NUR ---
telegraph mechanic note spoke with dr feliz coater slate notified that still on high shalonda and nonrebreather mask also saturation 95% will monitor having lunch
[2020-04-17 12:00] VITALS: BP 136/78
[2020-04-17] MEDS: INSULIN REGULAR, HUMAN 100 UNIT/ML 3 ML VIAL SQ PRN ×2 (12:24→17:17)
--- NOTE | 2020-04-17 15:30 | NUR ---
MANAGER RFID NEREYDA ROUNDS MADE ,ALL NEEDS ATTENDED .SATURATION 91% AT THIS TIME
[2020-04-17 16:00] VITALS: BP 134/79
--- NOTE | 2020-04-17 18:38 | NUR ---
MASONRY INSPECTOR NOTE PATIENT IN BED ALERT ORIENTED ON HIGH FLOW AND NONREABRETHER MASK SATURATION 93% AT THIS TIME ,ATE DINNER NOT IN DISTRESS, CALL LIGHT WITHIN REACH , ALL NEEDS ATTENDED, WILL MONITOR
--- NOTE | 2020-04-17 19:20 | NUR ---
"RN OPENING NOTES: RECEIVED PT A/OX3-4 IN BED RESTING COMFORTABLY. PATIENT IN NO S/SX OF ACUTE DISTRESS AT THIS TIME. NO SOB NOTED. PATIENT'S BREATHING IS EVEN AND UNLABORED. PATIENT IS ON 40L |100% OF OXYGEN VIA HIGH FLOW NC AND 15L |100% 02 VIA NRB MASK; TOLERATING WELL. PATIENT ON TELE MONITORING READING SINUS RHYTHM HR IS @70 AT THE TIME OF RECEIVED. PATIENT ON CCHO DIET; TOLERATES WELL. NOTED IV SITE ON R UA MIDLINE; PATENT, INTACT AND FLUSHING WELL; NO S/S OF INFECTION OR INFILTRATION.SAFETY MEASURES HAVE BEEN PROVIDED AND IMPLEMENTED. PATIENT BED ALARM IS ON. HEAD OF BED ELEVATED. BED IS LOCKED, IN LOWEST POSITION AND SIDE RAILS UP. CALL LIGHT WITHIN REACH OF THE PATIENT. APPLICABLE ISOLATION PRECAUTIONS IN PLACE. WILL CONTINUE TO MONITOR AND REASSESS FOR ANY CHANGES AND WILL CARRY OUT ANY ONGOING AND ACTIVE MD ORDER."
[2020-04-17 20:00] VITALS: BP 115/67
--- NOTE | 2020-04-17 20:38 | NUR ---
RT NOTE FOUND PT ON HFNC 40LPM 100%. SPO2 BETWEEN 92-93. ALERT AND ORIENTED. WILL CONTINUE TO MONITOR T/O SHIFT.
[2020-04-17] MEDS: LATANOPROST EYE DROP 0.005% 2.5 ML BOTTLE EACHEYE SCH (21:16)
[2020-04-17] MEDS: SIMVASTATIN 10 MG TABLET PO SCH (21:17)
[2020-04-17] MEDS: *INSULIN REGULAR(HUMULIN R)HUM 100 UNIT/ML VIAL SQ PRN (21:51)
--- NOTE | 2020-04-17 22:10 | NUR ---
END PACKER: CONTINUITY OF CARE Care endorsed by WILSON Lora. Patient in bed, A/O x4. On High flow Oxygen at 40LPM, not in distress, denies SOB. Fall precaution maintained.
--- NOTE | 2020-04-17 22:30 | NUR ---
RN NOTES REPORT GIVEN TO WILSON HAM FOR RAFI. DATA WAREHOUSE CONSULTANT MADE AWARE.
[2020-04-17] MEDS: HYDROCODONE/APAP 5/325MG TABLET PO PRN (23:04)
[2020-04-18] VITALS: BP 125/72
[2020-04-18 04:00] VITALS: BP 116/75
[2020-04-18] MEDS: DEXAMETHASONE SOD PHOSPHATE 4 MG/ML VIAL IV SCH ×2 (05:40→21:41)
[2020-04-18] MEDS: GUAIFENESIN/CODEINE 10 ML UDC PO PRN ×2 (05:40→12:07)
[2020-04-18 06:42] LABS: EOSINOPHILS % (AUTO) 0.2 % (0.0-6.0); HEMATOCRIT 41 % (39-51); HEMOGLOBIN 13.3 g/dL (13.5-17.5); LYMPHOCYTES # (AUTO) 0.3 /CMM (0.8-4.8); LYMPHOCYTES % (AUTO) 3.9 % (20.0-44.0); MEAN CORPUSCULAR HGB CONC 32 g/dl (31.0-36.0); MEAN CORPUSCULAR VOLUME 81 fL (80-96); MONOCYTES # (AUTO) 0.2 /CMM (0.1-1.30); MONOCYTES % (AUTO) 2.7 % (2.0-12.0); NEUTROPHILS # (AUTO) 6.9 /CMM (1.8-8.9); NEUTROPHILS % (AUTO) 93.2 % (43.0-81.0); PLATELET COUNT (AUTO) 117 /CMM (150-450); RED BLOOD CELL COUNT(AUTO) 5.11 MIL/uL (4.5-6.0); WHITE BLOOD COUNT (AUTO) 7.4 K/uL (4.3-11.0)
--- NOTE | 2020-04-18 06:50 | NUR ---
LEGAL EXECUTIVE: END OF SHIFT REPORT On High flow Oxygen 40LPM + NRB mask 15LPM. Oxygen saturation on low 90's. JUMA MIDLINE intact. Cough improving, on Robitussin. Decadron IV. Lower back managed with [place] with relief. Afebrile. Maintained contact, droplet precaution. Will endorse to Oncoming RN.
[2020-04-18 07:13] LABS: C-REACTIVE PROTEIN 1.5 mg/dL (0.0-0.9); CALCIUM, SERUM 8.1 mg/dL (8.5-10.1); CREATININE 0.8 mg/dL (0.6-1.3); POTASSIUM 4.7 mmol/L (3.5-5.1)
--- NOTE | 2020-04-18 07:30 | NUR ---
BOOKMOBILE DRIVER OPENING NOTE PT A/Ox4 LAYING IN BED ON HIGH FLOW O2 40 LPM AND NRB 15 LPM, PT SPO2 88-91% NORMAL FOR PT PER WINDSCREEN FITTER RN, NO SIGNS OF RESP DISTRESS OR SOB, BREATHING EVEN AND UNLABORED. PT DENIES PAIN. PT SKIN INTACT, USES URINAL, HAS JUMA MIDLINE FLUSHED, PATENT, INTACT WITH NO SIGNS OF INFECTION OR INFILTRATION. ALL PT SAFETY PRECAUTION IN PLACE. WILL CONT TO MONITOR
[2020-04-18 08:00] VITALS: BP 126/66
[2020-04-18] MEDS: ENOXAPARIN SODIUM 40 MG/0.4 ML DISP.SYRIN SQ SCH ×2 (09:36→21:44)
[2020-04-18] MEDS: INSULIN REGULAR, HUMAN 100 UNIT/ML 3 ML VIAL SQ PRN ×2 (09:37→11:58)
[2020-04-18] MEDS: INSULIN GLARGINE, 100 UNIT/ML CARTRIDGE SQ SCH (09:38)
[2020-04-18] MEDS: PANTOPRAZOLE 40 MG TABLET.DR PO SCH (09:38)
[2020-04-18] MEDS: ASPIRIN 81 MG TAB.CHEW PO SCH (09:38)
[2020-04-18] MEDS: TAMSULOSIN 0.4 MG CAP.SR.24H PO SCH (09:41)
[2020-04-18] MEDS: AMLODIPINE BESYLATE 5 MG TABLET PO SCH (09:43)
[2020-04-18] MEDS: FINASTERIDE (5 MG) 5 MG TABLET PO SCH (09:43)
[2020-04-18] MEDS: BLOOD SUGAR DIAGNOSTIC 1 EACH STRIP VI SCH ×4 (09:44→21:39)
[2020-04-18] MEDS: CARVEDILOL 12.5 MG TABLET PO SCH ×2 (09:44→16:58)
--- NOTE | 2020-04-18 10:00 | NUR ---
RN NOTE PT REPORT GIVEN TO COLIN VELA, FOR RAFI
[2020-04-18 12:00] VITALS: BP 120/72
[2020-04-18 16:58] VITALS: BP 104/57
--- NOTE | 2020-04-18 19:15 | NUR ---
MOSAIC TILER OPENING NOTE REPORT RECIEVED FROM STEVE SHAW. PT ON HFNC AT 40LPM AT 100 % FIO2 AND NRB MASK AT 215 LITERS SATURATION 91% TO 89%. JUMA MIDLINE INTACT. PT DENIES PAIN AT THIS TIME. CALL LIGTH WITHIN REACH. REVIEWED POC. QUESITONS CONCERNS ADDRESSED. BED DOWN LOCKED VERBALIZED UNDERSTANDING TO CALL FOR ASSISTANCE IF NEEDED. WILL CONT TO MONITOR.
--- NOTE | 2020-04-18 19:20 | NUR ---
tele hot car charger: notes still awaiting for ambulance to bean picker machine operator the pt. report given to juana (neisha) for continuity of care.
[2020-04-18 20:00] VITALS: BP 100/60
[2020-04-18] MEDS: LATANOPROST EYE DROP 0.005% 2.5 ML BOTTLE EACHEYE SCH (21:40)
[2020-04-18] MEDS: SIMVASTATIN 10 MG TABLET PO SCH (21:40)
[2020-04-19] VITALS: BP 111/59
[2020-04-19] MEDS: HYDROCODONE/APAP 5/325MG TABLET PO PRN ×2 (01:43→21:35)
[2020-04-19 04:00] VITALS: BP 101/43
--- NOTE | 2020-04-19 06:19 | NUR ---
HEALTHCARE CONSULTING MANAGER CLOSING NOTE NO SIGNIFICANT CHANGE TO PT STATUS DURING SHIFT. PT ON HFNC AT 40LPM AT 100 % FIO2 AND NRB MASK AT 15 LITERS SATURATION 93% TO 98% THIS AM. JUMA MIDLINE INTACT. PT DENIES PAIN AT THIS TIME. CALL LIGHT WITHIN REACH. BED DOWN LOCKED VERBALIZED UNDERSTANDING TO CALL FOR ASSISTANCE IF NEEDED. WILL ENDORSE TO ONCOMING SHIFT.
--- NOTE | 2020-04-19 07:30 | NUR ---
RN CLOSING NOTE PATIENT IS IN BED WITH HOB AT [facility]. PATIENT IS STABLE ON HIGH FLOW 40L AT 100% AND NRB 15l. CURRENTLY AOX4. SKIN IS INTACT. JUMA MIDLINE IS PATENT, INTACT, AND HAS NO SIGNS OF INFILTRATION. BED IS LOCKED IN THE LOWEST POSITION, CALL ELY WITHIN REACH, 3 GUARD RAILS RAISED, AND ALL HOSPITAL SAFETY PRECAUTIONS ARE BEING FOLLOWED. WILL CONTINUE TO MONITOR THROUGHOUT SHIFT. Addendum: 04/19/20 at 1730 by LISY HUNTER RN *RN OPENING NOTE
[2020-04-19] MEDS: BLOOD SUGAR DIAGNOSTIC 1 EACH STRIP VI SCH ×4 (07:50→21:49)
[2020-04-19] MEDS: PANTOPRAZOLE 40 MG TABLET.DR PO SCH (07:53)
[2020-04-19 08:00] VITALS: BP 94/43
[2020-04-19] MEDS: DEXAMETHASONE SOD PHOSPHATE 4 MG/ML VIAL IV SCH ×2 (08:50→21:16)
[2020-04-19] MEDS: ASPIRIN 81 MG TAB.CHEW PO SCH (08:53)
[2020-04-19] MEDS: CARVEDILOL 12.5 MG TABLET PO SCH ×2 (08:53→17:28)
[2020-04-19] MEDS: TAMSULOSIN 0.4 MG CAP.SR.24H PO SCH (08:53)
[2020-04-19] MEDS: FINASTERIDE (5 MG) 5 MG TABLET PO SCH (08:53)
[2020-04-19] MEDS: AMLODIPINE BESYLATE 5 MG TABLET PO SCH (08:54)
[2020-04-19] MEDS: ENOXAPARIN SODIUM 40 MG/0.4 ML DISP.SYRIN SQ SCH ×2 (08:56→21:17)
[2020-04-19] MEDS: INSULIN GLARGINE, 100 UNIT/ML CARTRIDGE SQ SCH (09:00)
--- NOTE | 2020-04-19 09:00 | NUR ---
PROVIDER RELATIONS COORDINATOR NOTE BP MEDICATION HELD DUE TO LOW BP. WILL CONTINUE TO MONITOR.
[2020-04-19 12:00] VITALS: BP 101/50
[2020-04-19] MEDS: *INSULIN REGULAR(HUMULIN R)HUM 100 UNIT/ML VIAL SQ PRN (12:13)
[2020-04-19 16:00] VITALS: BP 128/101
--- NOTE | 2020-04-19 16:45 | NUR ---
CLEANER LABORATORY EQUIPMENT NOTE BILATERAL DVT STOCKINGS APPLIED. WILL CONTINUE TO MONITOR.
--- NOTE | 2020-04-19 18:46 | NUR ---
RN CLOSING NOTE PATIENT IS IN BED WITH HOB AT [facility]. PATIENT IS STABLE ON HIGH FLOW 40L AT 100% AND NRB 15L. CURRENTLY AOX4. SKIN IS INTACT. JUMA MIDLINE IS PATENT, INTACT, AND HAS NO SIGNS OF INFILTRATION. DVT STOCKINGS ARE APPLIED. BED IS LOCKED IN THE LOWEST POSITION, CALL ELY WITHIN REACH, 3 GUARD RAILS RAISED, AND ALL HOSPITAL SAFETY PRECAUTIONS ARE BEING FOLLOWED. WILL CONTINUE TO MONITOR THROUGHOUT SHIFT. Addendum: 04/19/20 at 1849 by LISY HUNTER RN *WILL ENDORSE TO IC DESIGNER CUSTOM RN
--- NOTE | 2020-04-19 19:15 | NUR ---
RN NOTE RECEIVED PT IN BED IN SEMI LIZ'S POSITION. PT IS ALERT AND ORIENTED X 4. PT IS ON HIFLOW NASAL CANNULA 40L AND FIO2 100% AND WITH NON REBREATHER MASK 15L. PT SATURATION BETWEEN 88-94% VIA CONTINUOUS PULSE OX. PT ASSISTED TO BEDSIDE COMMODE USING 2 PERSON ASSIST. PT HAD ONE LARGE BOWEL MOVEMENT. PT ASSISTED BACK TO BED. PARTIAL LINEN AND GOWN CHANGE COMPLETED. RIGHT UPPER ARM MIDLINE PATENT AND INTACT, FLUSHING WELL WITHOUT COMPILATIONS NOTED AT SITE. PT DENIES PAIN OR DISCOMFORT AT THIS TIME. PLAN OF CARE DISCUSSED, URINAL REACHABLE AT BEDSIDE, SAFETY MEASURES IN PLACE PER PROTOCOL, BED LOCKED AND IN LOW POSITION, SIDE RAILS UP X 2, BED ALARM ON, CALL LIGHT WITHIN REACH, WILL MONITOR PATIENT AND CARRY OUT ACTIVE MD ORDERS.
[2020-04-19 20:00] VITALS: BP 109/64
--- NOTE | 2020-04-19 21:12 | NUR ---
RN NOTE PULLED OUT MEDICATION SIMVASTATIN 10MG FROM OMNICELL BUT UPON TAKING IT OUT, MEDICATION WAS POPPED FROM CONTAINER AND FELL ON THE FLOOR. MEDICATION WASTED. WITNESSED BY RN DEIDRE DEVRIES RN, PULLED OUT ADDITIONAL TABLET OF SIMVASTATIN FROM OMNICELL.
[2020-04-19] MEDS: SIMVASTATIN 10 MG TABLET PO SCH (21:16)
[2020-04-19] MEDS: LATANOPROST EYE DROP 0.005% 2.5 ML BOTTLE EACHEYE SCH (21:18)
[2020-04-19] MEDS: GUAIFENESIN/CODEINE 10 ML UDC PO PRN (23:09)
[2020-04-20] VITALS: BP 118/69
--- NOTE | 2020-04-20 01:00 | NUR ---
RN NOTE PT RESTING IN BED IN HIGH LIZ'S POSITION. PT DENIES PAIN OR DISCOMFORT, O2 SATURATION 92% VIA CONTINUOUS PULSE OX MONITORING. WILL CONTINUE TO MONITOR PATIENT.
[2020-04-20 04:00] VITALS: BP 117/75
--- NOTE | 2020-04-20 06:22 | NUR ---
RN NOTE NO ACUTE CHANGES OBSERVED OVERNIGHT. PT CURRENTLY IN HIGH LIZ'S POSITION. PT IS ALERT AND ORIENTED X 4. PT IS ON HIFLOW NASAL CANNULA 40L AND FIO2 100% AND WITH NON REBREATHER MASK 15L. PT SATURATION BETWEEN 90-63% VIA CONTINUOUS PULSE OX. NO SIGNS OF DISTRESS AT THIS TIME. PT DENIES PAIN OR DISCOMFORT. RIGHT UPPER ARM MIDLINE PATENT AND INTACT. PT DENIES PAIN OR DISCOMFORT AT THIS TIME. URINAL REACHABLE AT BEDSIDE, SAFETY MEASURES IN PLACE PER PROTOCOL, BED LOCKED AND IN LOW POSITION, SIDE RAILS UP X 2, BED ALARM ON, CALL LIGHT WITHIN REACH
--- NOTE | 2020-04-20 06:33 | NUR ---
RN NOTE PT REQUESTING FOR PREPARATION H OINTMENT FOR COMPLAINT OF HEMORRHOIDS. NOTIFIED DR. CRUZ WHO AGREES. ORDER NOTED AND CARRIED OUT.
--- NOTE | 2020-04-20 07:20 | NUR ---
RN OPENING NOTE PATIENT RECEIVED IN BED RESTING IN SEMI-FOWLERS POSITION. NO COMPLAINTS OF PAIN. PATIENT IS ON O2 THERAPY VIA HFNC 40 LPM 100% + NRB AT 15 LPM. PATIENT IS TOLERATING WELL. IV ACCESS MAINTAINED INTACT, SECURED AND FLUSHING WELL. ISOLATION PRECAUTIONS MAINTAINED. SAFETY MEASURES IMPLEMENTED, BED LOCKED IN LOWEST POSITION, SIDE RAILS UP, BED ALARM ON, CALL LIGHT WITHIN REACH. WILL CONTINUE TO MONITOR PATIENT AND PROVIDE CARE THROUGHOUT SHIFT.
[2020-04-20 08:00] VITALS: BP 107/50
[2020-04-20] MEDS: PANTOPRAZOLE 40 MG TABLET.DR PO SCH (08:19)
[2020-04-20] MEDS: BLOOD SUGAR DIAGNOSTIC 1 EACH STRIP VI SCH ×4 (08:21→21:35)
[2020-04-20] MEDS: DEXAMETHASONE SOD PHOSPHATE 4 MG/ML VIAL IV SCH ×2 (08:23→21:34)
[2020-04-20] MEDS: ASPIRIN 81 MG TAB.CHEW PO SCH (08:23)
[2020-04-20] MEDS: TAMSULOSIN 0.4 MG CAP.SR.24H PO SCH (08:23)
[2020-04-20] MEDS: FINASTERIDE (5 MG) 5 MG TABLET PO SCH (08:23)
[2020-04-20] MEDS: AMLODIPINE BESYLATE 5 MG TABLET PO SCH (08:24)
[2020-04-20] MEDS: CARVEDILOL 12.5 MG TABLET PO SCH ×2 (08:24→16:05)
[2020-04-20] MEDS: ENOXAPARIN SODIUM 40 MG/0.4 ML DISP.SYRIN SQ SCH ×2 (08:29→20:52)
[2020-04-20] MEDS: INSULIN GLARGINE, 100 UNIT/ML CARTRIDGE SQ SCH (08:29)
[2020-04-20] MEDS: PHENYLEPHRINE/SHK LV/MO/PET,WH 30 GM TUBE RC PRN ×2 (09:46→16:47)
[2020-04-20 12:00] VITALS: BP 106/55
[2020-04-20] MEDS: GUAIFENESIN/CODEINE 10 ML UDC PO PRN ×2 (12:02→21:34)
[2020-04-20 16:00] VITALS: BP 104/51
--- NOTE | 2020-04-20 18:43 | NUR ---
RN CLOSING NOTE PATIENT IN BED RESTING IN SEMI-FOWLERS POSITION. NO COMPLAINTS OF PAIN. PATIENT IS ON O2 THERAPY VIA HFNC 40 LPM 100% + NRB AT 15 LPM. PATIENT IS TOLERATING WELL. IV ACCESS MAINTAINED INTACT, SECURED AND FLUSHING WELL. ISOLATION PRECAUTIONS MAINTAINED. SAFETY MEASURES IMPLEMENTED, BED LOCKED IN LOWEST POSITION, SIDE RAILS UP, BED ALARM ON, CALL LIGHT WITHIN REACH. WILL ENDORSE CONTINUATION OF CARE TO UPCOMING SHIFT.
[2020-04-20 20:00] VITALS: BP 118/66
--- NOTE | 2020-04-20 20:00 | NUR ---
RN NOTE RECEIVED PT IN BED ON HF NC 40L FIO2 100% AND 15L NON REBREATHER SATING 90 TO 92%, HAS UNLABORED BREATHING , ON TELE MONITOR SHOWING SR IN 60s SAFETY MEASURES IN PLACE.
[2020-04-20] MEDS: SIMVASTATIN 10 MG TABLET PO SCH (21:34)
[2020-04-20] MEDS: LATANOPROST EYE DROP 0.005% 2.5 ML BOTTLE EACHEYE SCH (21:35)
[2020-04-21] VITALS: BP 132/73
[2020-04-21 04:00] VITALS: BP 130/74
--- NOTE | 2020-04-21 07:29 | NUR ---
RN PT REMAINED STABLE NO ACUTE CHANGES DURING MY SHIFT REPORT GIVEN TO INCOMING SHIFT FOR RAFI.
--- NOTE | 2020-04-21 07:36 | NUR ---
RN NOTES PATIENT RECEIVED IN BED, ALERT AND ORIENTED X 4. ON HIGH FLOW NASAL CANNULA AND NON-REBREATHER MASK. IV ACCESS INTACT AND PATENT. SKIN WARM AND DRY TO TOUCH. PATIENT DENIES PAIN AND DISCOMFORT AT THIS TIME. SAFETY PRECAUTIONS IMPLEMENTED WITH BED LOCKED, BILATERAL SIDE RAILS UP, BED ALARM ON, BED IN THE LOWEST POSITION AND CALL LIGHT WITHIN EASY REACH. WILL CONTINUE TO MONITOR PATIENT.
[2020-04-21] MEDS: BLOOD SUGAR DIAGNOSTIC 1 EACH STRIP VI SCH ×4 (07:45→22:01)
[2020-04-21] MEDS: PANTOPRAZOLE 40 MG TABLET.DR PO SCH (07:45)
[2020-04-21 08:00] VITALS: BP 132/67
[2020-04-21] MEDS: DEXAMETHASONE SOD PHOSPHATE 4 MG/ML VIAL IV SCH (08:35)
[2020-04-21] MEDS: FINASTERIDE (5 MG) 5 MG TABLET PO SCH (08:35)
[2020-04-21] MEDS: AMLODIPINE BESYLATE 5 MG TABLET PO SCH (08:35)
[2020-04-21] MEDS: TAMSULOSIN 0.4 MG CAP.SR.24H PO SCH (08:35)
[2020-04-21] MEDS: ASPIRIN 81 MG TAB.CHEW PO SCH (08:35)
[2020-04-21] MEDS: CARVEDILOL 12.5 MG TABLET PO SCH ×2 (08:36→16:00)
[2020-04-21] MEDS: ENOXAPARIN SODIUM 40 MG/0.4 ML DISP.SYRIN SQ SCH (08:40)
[2020-04-21] MEDS: INSULIN GLARGINE, 100 UNIT/ML CARTRIDGE SQ SCH (08:47)
[2020-04-21 09:01] LABS: EOSINOPHILS % (AUTO) 1.5 % (0.0-6.0); HEMATOCRIT 43 % (39-51); LYMPHOCYTES # (AUTO) 0.5 /CMM (0.8-4.8); LYMPHOCYTES % (AUTO) 5.3 % (20.0-44.0); MEAN CORPUSCULAR HGB CONC 32 g/dl (31.0-36.0); MEAN CORPUSCULAR VOLUME 81 fL (80-96); MONOCYTES # (AUTO) 0.1 /CMM (0.1-1.30); MONOCYTES % (AUTO) 1.4 % (2.0-12.0); NEUTROPHILS # (AUTO) 8.5 /CMM (1.8-8.9); NEUTROPHILS % (AUTO) 91.8 % (43.0-81.0); PLATELET COUNT (AUTO) 103 /CMM (150-450); RED BLOOD CELL COUNT(AUTO) 5.33 MIL/uL (4.5-6.0); WHITE BLOOD COUNT (AUTO) 9.3 K/uL (4.3-11.0)
[2020-04-21 12:00] VITALS: BP 112/63
[2020-04-21 16:00] VITALS: BP 95/75
[2020-04-21] MEDS: INSULIN REGULAR, HUMAN 100 UNIT/ML 3 ML VIAL SQ PRN (16:44)
--- NOTE | 2020-04-21 18:25 | NUR ---
FORK LIFT TECHNICIAN NOTES PATIENT IN BED, ALERT AND ORIENTED X 4. ON HIGH FLOW NASAL CANNULA AND NON-REBREATHER MASK. ON MANAGER MARKET INTELLIGENCE, SR, 70'S IV ACCESS INTACT AND PATENT. SKIN KEPT CLEAN, WARM AND DRY TO TOUCH. PATIENT DENIES PAIN AND DISCOMFORT AT THIS TIME. MET ALL OF PATIENT'S NEEDS. SAFETY PRECAUTIONS IMPLEMENTED WITH BED LOCKED, BILATERAL SIDE RAILS UP, BED ALARM ON, BED IN THE LOWEST POSITION AND CALL LIGHT WITHIN EASY REACH. WILL ENDORSE PLAN OF CARE TO UPCOMING RN.
[2020-04-21 20:00] VITALS: BP 104/51
[2020-04-21] MEDS: SIMVASTATIN 10 MG TABLET PO SCH (21:24)
[2020-04-21] MEDS: GUAIFENESIN/CODEINE 10 ML UDC PO PRN (21:24)
[2020-04-21] MEDS: LATANOPROST EYE DROP 0.005% 2.5 ML BOTTLE EACHEYE SCH (21:30)
[2020-04-21] MEDS: *INSULIN REGULAR(HUMULIN R)HUM 100 UNIT/ML VIAL SQ PRN (22:01)
--- NOTE | 2020-04-21 23:29 | NUR ---
RN NOTES PATIENT A/OX4, ABLE TO MAKE NEEDS KNOWN. ON HIGH FLOW AND NON-REBREATHER MASK, O2 SAT 96%. TELE MONITOR ON, SR 70'S. DENIES ANY PAIN OR DISCOMFORT AT THIS TIME. WITH JUMA MIDLINE, PATENT AND INTACT. ALL NEEDS ANTICIPATED. CALL LIGHT WITHIN REACH. SAFETY MEASURES IMPLEMENTED. WILL CONTINUE TO MONITOR.
[2020-04-22] VITALS: BP 104/55
[2020-04-22 04:00] VITALS: BP 117/58
[2020-04-22 06:52] LABS: BASOPHILS % (AUTO) 0.2 % (0.0-2.0); EOSINOPHILS % (AUTO) 3.3 % (0.0-6.0); HEMATOCRIT 42 % (39-51); HEMOGLOBIN 13.5 g/dL (13.5-17.5); LYMPHOCYTES # (AUTO) 0.5 /CMM (0.8-4.8); LYMPHOCYTES % (AUTO) 4.8 % (20.0-44.0); MEAN CORPUSCULAR HGB CONC 33 g/dl (31.0-36.0); MEAN CORPUSCULAR VOLUME 82 fL (80-96); MONOCYTES % (AUTO) 0.4 % (2.0-12.0); NEUTROPHILS % (AUTO) 91.3 % (43.0-81.0); PLATELET COUNT (AUTO) 74 /CMM (150-450); RED BLOOD CELL COUNT(AUTO) 5.11 MIL/uL (4.5-6.0); WHITE BLOOD COUNT (AUTO) 9.9 K/uL (4.3-11.0)
--- NOTE | 2020-04-22 07:07 | NUR ---
RN NOTE PATIENT A/OX4, ABLE TO MAKE NEEDS KNOWN. ON HIGH FLOW AND NON-REBREATHER MASK, O2 SAT 92%. TELE MONITOR ON, SR 70'S. DENIES ANY PAIN OR DISCOMFORT AT THIS TIME. WITH JUMA MIDLINE, PATENT AND INTACT. ALL NEEDS ANTICIPATED. NO SIGNIFICANT CHANGES NOTED. CALL LIGHT WITHIN REACH. SAFETY MEASURES IMPLEMENTED. WILL ENDORSE TO ONCOMING SHIFT.
[2020-04-22 07:16] LABS: CALCIUM, SERUM 8.3 mg/dL (8.5-10.1); CREATININE 0.7 mg/dL (0.6-1.3); POTASSIUM 3.5 mmol/L (3.5-5.1)
[2020-04-22 07:29] LABS: C-REACTIVE PROTEIN 3.7 mg/dL (0.0-0.9)
--- NOTE | 2020-04-22 07:42 | NUR ---
MS/RN OPENING NOTE RECEIVED PATIENT FROM SHEEP STICKER NURSE. PATIENT IS IN BED ASLEEP, EASILY WOKEN UP. A/O X4. NO ACUTE DISTRESS NOTED AT THIS TIME. PATIENT ON HF OXYGEN NRB MASK 40L, 100% O2 SAT 88-92%, TOLERATING WELL. NO SOB NOTED, BREATHING EVEN NON LABORED. SAFETY MEASURES IN PLACE, BED LOCKED AND IN LOWEST POSITION, CALL LIGHT WITHIN REACH. WILL CONTINUE TO MONITOR AND ENSURE SAFETY.
[2020-04-22 08:00] VITALS: BP 111/59
[2020-04-22] MEDS: BLOOD SUGAR DIAGNOSTIC 1 EACH STRIP VI SCH ×4 (08:28→21:48)
[2020-04-22] MEDS: FINASTERIDE (5 MG) 5 MG TABLET PO SCH (08:49)
[2020-04-22] MEDS: TAMSULOSIN 0.4 MG CAP.SR.24H PO SCH (08:50)
[2020-04-22] MEDS: PANTOPRAZOLE 40 MG TABLET.DR PO SCH (08:50)
[2020-04-22] MEDS: DEXAMETHASONE SOD PHOSPHATE 4 MG/ML VIAL IV SCH (08:50)
[2020-04-22] MEDS: ASPIRIN 81 MG TAB.CHEW PO SCH (08:50)
[2020-04-22] MEDS: CARVEDILOL 12.5 MG TABLET PO SCH ×2 (08:51→16:50)
[2020-04-22] MEDS: AMLODIPINE BESYLATE 5 MG TABLET PO SCH (08:52)
[2020-04-22] MEDS ORDERED: ENOXAPARIN SODIUM 40 MG/0.4 ML DISP.SYRIN SQ SCH (09:00)
[2020-04-22] MEDS: INSULIN GLARGINE, 100 UNIT/ML CARTRIDGE SQ SCH (10:05)
[2020-04-22 12:00] VITALS: BP 91/50
[2020-04-22 16:00] VITALS: BP 116/59
--- NOTE | 2020-04-22 19:14 | NUR ---
MS/RN CLOSING NOTE PATIENT IS IN BED ASLEEP, EASILY WOKEN UP. A/O X4. NO ACUTE DISTRESS NOTED AT THIS TIME. PATIENT ON HF OXYGEN NRB MASK 40L, 100% O2 SAT 88-92%, TOLERATING WELL. NO SOB NOTED, BREATHING EVEN NON LABORED. SAFETY MEASURES IN PLACE, BED LOCKED AND IN LOWEST POSITION, CALL LIGHT WITHIN REACH. ALL NEEDS MET THROUGHOUT THE SHIFT. WILL ENDORSE TO ANIMAL MAINTENANCE SUPERVISOR NURSE.
--- NOTE | 2020-04-22 19:15 | NUR ---
RN OPENING NOTE RECEIVED PATIENT IN BED RESTING ALERT ORIENTED X4 VERBALLY RESPONSIVE ON 40L HIGH FLOW OXYGEN AND 15L NON REBREATHER MASK O2:88% IV SITE IS ON RIGHT UPPER MIDLINE INTACT PATENT,CONTINENT TO BOWEL/BLADDER,CALL LIGHT WITHIN REACH,BED IN LOW POSITION AND LOCKED,BED ALARM IS ON,SAFETY MEASURE IMPLEMENT,CONTINUE TO MONITOR.
[2020-04-22 20:00] VITALS: BP 91/42
[2020-04-22] MEDS: SIMVASTATIN 10 MG TABLET PO SCH (21:01)
[2020-04-22] MEDS: LATANOPROST EYE DROP 0.005% 2.5 ML BOTTLE EACHEYE SCH (21:02)
[2020-04-22] MEDS: *INSULIN REGULAR(HUMULIN R)HUM 100 UNIT/ML VIAL SQ PRN (21:52)
[2020-04-23] VITALS: BP 98/50
[2020-04-23 04:00] VITALS: BP 118/53
[2020-04-23 06:38] LABS: BASOPHILS % (AUTO) 0.1 % (0.0-2.0); EOSINOPHILS % (AUTO) 3.2 % (0.0-6.0); HEMATOCRIT 40 % (39-51); HEMOGLOBIN 12.7 g/dL (13.5-17.5); LYMPHOCYTES # (AUTO) 0.4 /CMM (0.8-4.8); LYMPHOCYTES % (AUTO) 5.3 % (20.0-44.0); MEAN CORPUSCULAR HGB CONC 32 g/dl (31.0-36.0); MEAN CORPUSCULAR VOLUME 81 fL (80-96); MONOCYTES # (AUTO) 0.1 /CMM (0.1-1.30); MONOCYTES % (AUTO) 1.2 % (2.0-12.0); NEUTROPHILS # (AUTO) 7.5 /CMM (1.8-8.9); NEUTROPHILS % (AUTO) 90.2 % (43.0-81.0); PLATELET COUNT (AUTO) 67 /CMM (150-450); RED BLOOD CELL COUNT(AUTO) 4.89 MIL/uL (4.5-6.0); WHITE BLOOD COUNT (AUTO) 8.3 K/uL (4.3-11.0)
--- NOTE | 2020-04-23 06:48 | NUR ---
RN CLOSING NOTE PATIENT REMAINS ON ALERT ORIENTED X4 VERBALLY RESPONSIVE ON HIGH FLOW OXYGEN 40L FIO2:100% AND NON REBREATHER MASK 15L O2:93% ALL DUE MEDS GIVEN MD ORDERED IV SITE IS ON RIGHT UPPER ARM INTACT,KEPT CALL LIGHT WITHIN REACH,ALL NEEDS MET,ENDORSE NEXT COMING SHIFT FOR CONTINUATION OF CARE.
[2020-04-23 08:00] VITALS: BP 109/47
--- NOTE | 2020-04-23 08:00 | NUR ---
RN OPENING NOTE PT IS A/O X3 AND SPANISH SPEAKING. ABLE TO MAKE NEEDS KNOWN TO NURSES. NO COMPLAINT OF PAIN. CURRENTLY ON 40L O2 AND 100% FI02 DELIVERED BY HI FLOW NC. O2 SAT OF 90-95%. NO RESPIRATORY DISTRESS PRESENT. SINUS RHYTHYM RECORDED VIA EXTERNAL MONITOR. CURRENTLY ON BEDREST. SKIN IS INTACT. MIDLINE PRESENT IN RIGHT UPPER ARM. SAFETY MEASURES IN PLACE. SIDE RAILS RAISED. BED LOWERED. CALL LIGHT WITHIN REACH. WILL CONTINUE TO MONITOR.
[2020-04-23] MEDS: CARVEDILOL 12.5 MG TABLET PO SCH ×2 (09:00→17:48)
[2020-04-23] MEDS: AMLODIPINE BESYLATE 5 MG TABLET PO SCH (09:00)
[2020-04-23] MEDS: PANTOPRAZOLE 40 MG TABLET.DR PO SCH (10:27)
[2020-04-23] MEDS: ASPIRIN 81 MG TAB.CHEW PO SCH (10:28)
[2020-04-23] MEDS: FINASTERIDE (5 MG) 5 MG TABLET PO SCH (10:28)
[2020-04-23] MEDS: TAMSULOSIN 0.4 MG CAP.SR.24H PO SCH (10:28)
[2020-04-23] MEDS: INSULIN GLARGINE, 100 UNIT/ML CARTRIDGE SQ SCH (10:29)
[2020-04-23] MEDS: BLOOD SUGAR DIAGNOSTIC 1 EACH STRIP VI SCH ×4 (10:31→21:32)
[2020-04-23] MEDS: DEXAMETHASONE SOD PHOSPHATE 4 MG/ML VIAL IV SCH (10:31)
[2020-04-23 10:34] LABS: EOSINOPHILS % (MANUAL) 2 % (0-4); LYMPHOCYTES % (MANUAL) 7 % (16-48); MONOCYTES % (MANUAL) 3 % (0-11.0); NEUTROPHILS % (MANUAL) 88 (42-76)
[2020-04-23 10:40] LABS: ABG BASE EXCESS 0.8 mmol/L; ABG OXYGEN SATURATION 86.2 % (92.0-98.5); ABG PCO2 38.9 mmHg (35.0-45.0); ABG PH 7.427 (7.350-7.450); ABG PO2 51.2 mmHg (75.0-100.0); AaDO2 622.9 mmHg; COHb 1.6 % (0.5-1.5); MetHb 0.1 % (0.0-1.5); O2Hb 84.7 % (94.0-97.0); SITE, ABG Left Radial; VENT MODE, BG High Flow Nasal + NRB
[2020-04-23 12:00] VITALS: BP 142/58
[2020-04-23 16:00] VITALS: BP 142/73
--- NOTE | 2020-04-23 18:41 | NUR ---
RN CLOSING NOTE PT AWAKE IN BED, EATING DINNER. PT IS A/O X3 AND UKRAINIAN SPEAKING. ABLE TO MAKE NEEDS KNOWN TO NURSES. NO COMPLAINT OF PAIN. CURRENTLY ON 40L O2 AND 100% FI02 DELIVERED BY HI FLOW NC. O2 SAT OF 90-95%. NO RESPIRATORY DISTRESS PRESENT. SINUS RHYTHM RECORDED VIA EXTERNAL MONITOR. CURRENTLY ON BEDREST. SKIN IS INTACT. MIDLINE PRESENT IN RIGHT UPPER ARM. SAFETY MEASURES IN PLACE. SIDE RAILS RAISED. BED LOWERED. CALL LIGHT WITHIN REACH. ROUTINE MEDS GIVEN. REPORT GIVEN TO NIGHT NURSE.
--- NOTE | 2020-04-23 19:30 | NUR ---
TELE1 RN NOTES RECEIVED ON BED ON HIGH FOWLERS POSITION,BREATHING NON LABORED,ON HIGH FLOW OXYGEN 40L,100% FIO2 TOLERATED WELL,WITH SALINE LOCK RIGHT UPPER ARM MIDLINE FOR MEDS,VOIDING FREELY PER URINAL,ISOLATION PRECAUTION FOR COVID TEST POSITIVE.CALL LIGHT IN REACH,NEEDS ANTICIPATED.
[2020-04-23 20:00] VITALS: BP 131/69
--- NOTE | 2020-04-23 21:30 | NUR ---
TELE1 RN NOTES ACCU-CHECK BLOOD SUGAR CHECK 104,NO INSULIN COVERAGE.
[2020-04-23] MEDS: SIMVASTATIN 10 MG TABLET PO SCH (21:34)
[2020-04-23] MEDS: LATANOPROST EYE DROP 0.005% 2.5 ML BOTTLE EACHEYE SCH (21:46)
[2020-04-24] VITALS: BP 108/56
[2020-04-24 04:00] VITALS: BP 124/53
[2020-04-24 06:41] LABS: BASOPHILS % (AUTO) 0.2 % (0.0-2.0); EOSINOPHILS % (AUTO) 3.9 % (0.0-6.0); HEMATOCRIT 40 % (39-51); HEMOGLOBIN 12.9 g/dL (13.5-17.5); LYMPHOCYTES # (AUTO) 0.5 /CMM (0.8-4.8); LYMPHOCYTES % (AUTO) 5.7 % (20.0-44.0); MEAN CORPUSCULAR HGB CONC 32 g/dl (31.0-36.0); MEAN CORPUSCULAR VOLUME 82 fL (80-96); MONOCYTES # (AUTO) 0.1 /CMM (0.1-1.30); MONOCYTES % (AUTO) 1.7 % (2.0-12.0); NEUTROPHILS % (AUTO) 88.5 % (43.0-81.0); PLATELET COUNT (AUTO) 64 /CMM (150-450); RED BLOOD CELL COUNT(AUTO) 4.89 MIL/uL (4.5-6.0); WHITE BLOOD COUNT (AUTO) 7.9 K/uL (4.3-11.0)
--- NOTE | 2020-04-24 06:47 | NUR ---
SPOT MACHINE OPERATOR NOTES FAIRLY RESTED AT NIGHT STILL ON HIGH FLOW,O2 SAT BETWEEN 88-93,NOT IN ANY FORM OF DISTRESS
[2020-04-24 07:14] LABS: C-REACTIVE PROTEIN 14.5 mg/dL (0.0-0.9)
[2020-04-24 07:16] LABS: CALCIUM, SERUM 7.8 mg/dL (8.5-10.1); CREATININE 0.7 mg/dL (0.6-1.3); POTASSIUM 3.7 mmol/L (3.5-5.1)
[2020-04-24] MEDS: PANTOPRAZOLE 40 MG TABLET.DR PO SCH (07:39)
[2020-04-24 08:00] VITALS: BP 147/82
[2020-04-24] MEDS: BLOOD SUGAR DIAGNOSTIC 1 EACH STRIP VI SCH ×4 (08:19→21:33)
[2020-04-24] MEDS: ASPIRIN 81 MG TAB.CHEW PO SCH (08:29)
[2020-04-24] MEDS: DEXAMETHASONE SOD PHOSPHATE 4 MG/ML VIAL IV SCH (08:29)
[2020-04-24] MEDS: CARVEDILOL 12.5 MG TABLET PO SCH ×2 (08:30→17:00)
[2020-04-24] MEDS: TAMSULOSIN 0.4 MG CAP.SR.24H PO SCH (08:31)
[2020-04-24] MEDS: FINASTERIDE (5 MG) 5 MG TABLET PO SCH (08:31)
[2020-04-24] MEDS: AMLODIPINE BESYLATE 5 MG TABLET PO SCH (08:31)
[2020-04-24] MEDS: INSULIN GLARGINE, 100 UNIT/ML CARTRIDGE SQ SCH (08:32)
[2020-04-24 12:00] VITALS: BP 117/61
[2020-04-24] MEDS: INSULIN REGULAR, HUMAN 100 UNIT/ML 3 ML VIAL SQ PRN (12:38)
[2020-04-24 16:00] VITALS: BP 122/66
--- NOTE | 2020-04-24 19:30 | NUR ---
"RN OPENING NOTES: RECEIVED PT A/OX3-4 IN BED SLEEPING COMFORTABLY. PATIENT IN NO S/SX OF ACUTE DISTRESS AT THIS TIME. NO SOB NOTED. PATIENT'S BREATHING IS EVEN AND UNLABORED. PATIENT IS ON 40L |100% OF OXYGEN VIA HIGH FLOW NC AND 15L |100% 02 VIA NRB MASK; TOLERATING WELL. PATIENT ON TELE MONITORING READING SINUS RHYTHM AT THE TIME OF RECEIVED. PATIENT ON CCHO DIET; TOLERATES WELL. NOTED IV SITE ON R UA MIDLINE; PATENT, INTACT AND FLUSHING WELL; NO S/S OF INFECTION OR INFILTRATION.SAFETY MEASURES HAVE BEEN PROVIDED AND IMPLEMENTED. PATIENT BED ALARM IS ON. HEAD OF BED ELEVATED. BED IS LOCKED, IN LOWEST POSITION AND SIDE RAILS UP. CALL LIGHT WITHIN REACH OF THE PATIENT. APPLICABLE ISOLATION PRECAUTIONS IN PLACE. WILL CONTINUE TO MONITOR AND REASSESS FOR ANY CHANGES AND WILL CARRY OUT ANY ONGOING AND ACTIVE MD ORDER."
[2020-04-24 20:00] VITALS: BP 94/40
--- NOTE | 2020-04-24 20:05 | NUR ---
RN NOTES RECEIVED CALL FROM LAB, SPOKE WITH ATUL, WAS GIVEN COVID PCR RESULT NEGATIVE. VP PACKAGING MADE AWARE. WILL INFORM ELVI SAUCEDO.
--- NOTE | 2020-04-24 20:25 | NUR ---
RN NOTES COMMUNICATED WITH DR. CRUZ TO ADVISE COVID PCR RESULT FOR PATIENT WHO TURNED OUT NEGATIVE. AWAITING FOR MD FOR ANY ORDERS AND PLAN. BIOLOGICAL SCIENCE TECHNICIAN MADE AWARE.
[2020-04-24] MEDS: LATANOPROST EYE DROP 0.005% 2.5 ML BOTTLE EACHEYE SCH (21:21)
[2020-04-24] MEDS: SIMVASTATIN 10 MG TABLET PO SCH (21:21)
[2020-04-24] MEDS: *INSULIN REGULAR(HUMULIN R)HUM 100 UNIT/ML VIAL SQ PRN (21:33)
--- NOTE | 2020-04-24 23:00 | NUR ---
RN NOTES PATIENT REMAINS IN NO ACUTE RESPIRATORY DISTRESS AT THIS TIME, NO CHANGES TO CONDITION/STATUS. HEAD OF MATHEMATICS WELL AWARE. WILL CONTINUE TO MONITOR AND REASSESS FOR ANY CHANGES THROUGHOUT THE SHIFT
[2020-04-25] VITALS: BP 94/42
[2020-04-25 04:00] VITALS: BP 107/51
--- NOTE | 2020-04-25 04:15 | NUR ---
RN NOTES NOTED EPISODES OF O2 DESATURATION FOR THE PATIENT at LOW 80s, CPC MADE AWARE. COORDINATED WITH RT FOR FURTHER MGT. WILL CONTINUE TO ASSESS AND MONITOR THROUGHOUT THE SHIFT.
[2020-04-25 06:25] LABS: BASOPHILS % (AUTO) 0.3 % (0.0-2.0); EOSINOPHILS % (AUTO) 4.6 % (0.0-6.0); HEMATOCRIT 41 % (39-51); HEMOGLOBIN 13.5 g/dL (13.5-17.5); LYMPHOCYTES # (AUTO) 0.4 /CMM (0.8-4.8); LYMPHOCYTES % (AUTO) 5.1 % (20.0-44.0); MEAN CORPUSCULAR HGB CONC 33 g/dl (31.0-36.0); MEAN CORPUSCULAR VOLUME 81 fL (80-96); MONOCYTES # (AUTO) 0.2 /CMM (0.1-1.30); MONOCYTES % (AUTO) 2.4 % (2.0-12.0); NEUTROPHILS # (AUTO) 7.1 /CMM (1.8-8.9); NEUTROPHILS % (AUTO) 87.6 % (43.0-81.0); PLATELET COUNT (AUTO) 57 /CMM (150-450); RED BLOOD CELL COUNT(AUTO) 5.05 MIL/uL (4.5-6.0); WHITE BLOOD COUNT (AUTO) 8.1 K/uL (4.3-11.0)
--- NOTE | 2020-04-25 06:44 | NUR ---
RN CLOSING NOTES PATIENT REMAINS IN ROOM IN NO SIGNS OF RESPIRATORY DISTRESS. PATIENT SATURATING 90% OF 02. VITAL SIGNS WNL. IV LINE MAINTAINED, INTACT, PATENT AND FLUSHING, NO SITE REDNESS OR INFILTRATION. SAFETY PRECAUTIONS IN PLACE AND COMFORT MEASURES RENDERED. BED IN LOWEST POSITION, CALL LIGHT WITHIN REACH, BREAKS ON, SIDE RAILS UP. ALL NEEDS ATTENDED, MEDICATIONS GIVEN SCHEDULED AND ORDERED ; SHIFT ASSESSMENT/BEDBATH/SKIN CARE DONE. PATIENT KEPT CLEAN AND DRY. WILL INFORM INCOMING SHIFT RN TO CLOSELY MONITOR PT THERE ARE EPISODES OF 02 DESATURATION. WILL ENDORSE TO INCOMING SHIFT FOR RAFI WITH ALL PERTINENT INFO REGARDING PATIENT STATUS.
[2020-04-25 08:00] VITALS: BP 128/66
--- NOTE | 2020-04-25 08:00 | NUR ---
PT RECEIVED IN BED ALERT AND ORIENTED X 4, ON HF AND NRB O2 SAT 88-91%. PT HAS INTERMITTENT SOB. ALL SAFETY MEASURES IN PLACE. PT ON MONITOR SHOWING SR 80-90. PT JUMA MIDLINE INTACT AND FLUSHED WELL, NO SIGNS OF INFECTION OR INFILTRATION. ALL SAFETY MEASURES IN PLACE, WILL CONTINUE TO MONITOR CLOSELY.
[2020-04-25] MEDS: FINASTERIDE (5 MG) 5 MG TABLET PO SCH (08:03)
[2020-04-25] MEDS: ASPIRIN 81 MG TAB.CHEW PO SCH (08:04)
[2020-04-25] MEDS: TAMSULOSIN 0.4 MG CAP.SR.24H PO SCH (08:04)
[2020-04-25] MEDS: CARVEDILOL 12.5 MG TABLET PO SCH ×2 (08:05→16:26)
[2020-04-25] MEDS: DEXAMETHASONE SOD PHOSPHATE 4 MG/ML VIAL IV SCH (08:06)
[2020-04-25] MEDS: AMLODIPINE BESYLATE 5 MG TABLET PO SCH (08:06)
[2020-04-25] MEDS: PANTOPRAZOLE 40 MG TABLET.DR PO SCH (08:07)
[2020-04-25] MEDS: BLOOD SUGAR DIAGNOSTIC 1 EACH STRIP VI SCH ×4 (08:48→21:34)
[2020-04-25] MEDS ORDERED: INSULIN GLARGINE, 100 UNIT/ML CARTRIDGE SQ SCH (09:00)
--- NOTE | 2020-04-25 10:00 | NUR ---
PT COVID PCR IS NEGATIVE, BUT WILL REMAIN IN TELE AND NOT TRANSFER TO 3W DUE TO CURRENT OXYGENATION STATUS
[2020-04-25 12:00] VITALS: BP 103/54
[2020-04-25] MEDS: INSULIN REGULAR, HUMAN 100 UNIT/ML 3 ML VIAL SQ PRN (12:43)
--- NOTE | 2020-04-25 12:51 | NUR ---
Social Service Consult: SW spoke with patient case coordinator (Flores) at 1130am to verify fax number for documentation papers (Court) for pt to be sent to court. manager hematology (Flores) gave SW to assist in contacting the daughter (Ange Connor, to very fax number). SW attempt to call the daughter (Ange Connor, to very fax number) at 12:47 pm and left a voice message to return phone call at social work therapist office ([phone]). Plan: Social service attempt to call pt and waiting for return phone call by the daughter (Ange Cisnerosara, ) to verify fax number. Social service will be available as needed.
--- NOTE | 2020-04-25 13:00 | NUR ---
PT DAUGHTER CALLED TO RECEIVE A FORM FOR THE PATIENT, SIGNED BY MD CRUZ. FORM FAXXED OVER TO PATIENT DAUGHTER REQUESTED BY THE PATIENT.
[2020-04-25 16:00] VITALS: BP 117/63
[2020-04-25] MEDS: PHENYLEPHRINE/SHK LV/MO/PET,WH 30 GM TUBE RC PRN (16:47)
--- NOTE | 2020-04-25 19:00 | NUR ---
PATIENT REMAINS IN BED, UNCHANGED FROM AM. O2 SAT REMAINS HIGH 80s TO LOW 90s. PT AT TIMES HAS SOB WHEN REPOSITIONING. ALL MEDS GIVEN, ALL SAFETY MEASURES IN PLACE. REPORT GIVEN TO ONCOMING RN FOR RAFI
--- NOTE | 2020-04-25 19:30 | NUR ---
"RN OPENING NOTES: RECEIVED SALVADOREAN SPEAKING PT; A/OX3-4 IN BED RESTING COMFORTABLY. PATIENT IN NO S/SX OF ACUTE DISTRESS AT THIS TIME. NO SOB NOTED. PATIENT'S BREATHING IS EVEN AND UNLABORED. PATIENT IS ON 40L |100% OF OXYGEN VIA HIGH FLOW NC AND 15L |100% 02 VIA NRB MASK; TOLERATING WELL. PATIENT ON TELE MONITORING READING SINUS RHYTHM H; HR IS AT 70S AT THE TIME OF RECEIVED. PATIENT ON CCHO DIET; TOLERATES WELL. NOTED IV SITE ON R UA MIDLINE; PATENT, INTACT AND FLUSHING WELL; NO S/S OF INFECTION OR INFILTRATION.SAFETY MEASURES HAVE BEEN PROVIDED AND IMPLEMENTED. PATIENT BED ALARM IS ON. HEAD OF BED ELEVATED. BED IS LOCKED, IN LOWEST POSITION AND SIDE RAILS UP. CALL LIGHT WITHIN REACH OF THE PATIENT. APPLICABLE ISOLATION PRECAUTIONS IN PLACE. WILL CONTINUE TO MONITOR AND REASSESS FOR ANY CHANGES AND WILL CARRY OUT ANY ONGOING AND ACTIVE MD ORDER."
[2020-04-25 20:00] VITALS: BP 96/47
[2020-04-25] MEDS: LATANOPROST EYE DROP 0.005% 2.5 ML BOTTLE EACHEYE SCH (20:58)
[2020-04-25] MEDS: SIMVASTATIN 10 MG TABLET PO SCH (21:05)
[2020-04-25] MEDS: *INSULIN REGULAR(HUMULIN R)HUM 100 UNIT/ML VIAL SQ PRN (21:34)
--- NOTE | 2020-04-25 23:00 | NUR ---
RN NOTES PATIENT REMAINS IN NO ACUTE RESPIRATORY DISTRESS AT THIS TIME, NO CHANGES TO CONDITION/STATUS. LUBE MAN WELL AWARE. WILL CONTINUE TO MONITOR AND REASSESS FOR ANY CHANGES THROUGHOUT THE SHIFT
[2020-04-26] VITALS: BP_SYST 110; BP_SYST 129; BP_DIAS 49; BP_DIAS 52
[2020-04-26 04:00] VITALS: BP 119/52
--- NOTE | 2020-04-26 06:05 | NUR ---
RN NOTES PATIENT COMPLAINED ABOUT SOME SORES INSIDE THE MOUTH WITH SOME PAIN. MD NOTIFIED AND MD SAID WILL CHECK WITHIN MD ROUNDS. COMPUTER TECH MADE AWARE
--- NOTE | 2020-04-26 06:40 | NUR ---
RN CLOSING NOTES PATIENT REMAINS IN ROOM IN NO SIGNS OF RESPIRATORY DISTRESS. PATIENT SATURATING IN HIGH 80S TO LOW 90S% OF 02 DURING THE ENTIRE SHIFT. 02 SAT DURING END OF SHIFT WAS 91% . VITAL SIGNS WNL. IV LINE MAINTAINED, INTACT, PATENT AND FLUSHING, NO SITE REDNESS OR INFILTRATION. SAFETY PRECAUTIONS IN PLACE AND COMFORT MEASURES RENDERED. BED IN LOWEST POSITION, CALL LIGHT WITHIN REACH, BREAKS ON, SIDE RAILS UP. ALL NEEDS ATTENDED, MEDICATIONS GIVEN SCHEDULED AND ORDERED ; SHIFT ASSESSMENT/BEDBATH/SKIN CARE DONE. PATIENT KEPT CLEAN AND DRY. WILL INFORM INCOMING SHIFT RN TO CLOSELY MONITOR PT THERE ARE EPISODES OF 02 DESATURATION. WILL ENDORSE TO INCOMING SHIFT FOR RAFI WITH ALL PERTINENT INFO REGARDING PATIENT STATUS.
[2020-04-26 06:42] LABS: BASOPHILS % (AUTO) 0.3 % (0.0-2.0); EOSINOPHILS % (AUTO) 4.8 % (0.0-6.0); HEMATOCRIT 39 % (39-51); HEMOGLOBIN 12.6 g/dL (13.5-17.5); LYMPHOCYTES # (AUTO) 0.5 /CMM (0.8-4.8); MEAN CORPUSCULAR HGB CONC 32 g/dl (31.0-36.0); MEAN CORPUSCULAR VOLUME 82 fL (80-96); MONOCYTES # (AUTO) 0.2 /CMM (0.1-1.30); MONOCYTES % (AUTO) 2.7 % (2.0-12.0); NEUTROPHILS % (AUTO) 85.2 % (43.0-81.0); PLATELET COUNT (AUTO) 65 /CMM (150-450); RED BLOOD CELL COUNT(AUTO) 4.74 MIL/uL (4.5-6.0); WHITE BLOOD COUNT (AUTO) 7.1 K/uL (4.3-11.0)
[2020-04-26] MEDS: BLOOD SUGAR DIAGNOSTIC 1 EACH STRIP VI SCH ×4 (07:41→21:35)
--- NOTE | 2020-04-26 07:45 | NUR ---
RN OPENING NOTE PATIENT IS IN BED WITH HOB AT SEMI FOWLERS POSITION. PATIENT IS CURRENTLY STABLE ON HI FLOW 40L 100% AND NRB AT 15L. PATIENT IS AOX4. SKIN IS INTACT. JUMA MIDLINE IS PATENT, INTACT, AND HAS NO SIGNS OF INFILTRATION. BED IS LOCKED IN THE LOWEST POSITION, CALL ELY WITHIN REACH, AND ALL HOSPITAL SAFETY PRECAUTIONS ARE BEING FOLLOWED. WILL CONTINUE TO MONITOR THROUGHOUT SHIFT.
[2020-04-26 08:00] VITALS: BP 122/63
[2020-04-26] MEDS: CARVEDILOL 12.5 MG TABLET PO SCH ×2 (08:24→16:58)
[2020-04-26] MEDS: PANTOPRAZOLE 40 MG TABLET.DR PO SCH (08:24)
[2020-04-26] MEDS: ASPIRIN 81 MG TAB.CHEW PO SCH (08:24)
[2020-04-26] MEDS: AMLODIPINE BESYLATE 5 MG TABLET PO SCH (08:25)
[2020-04-26] MEDS: TAMSULOSIN 0.4 MG CAP.SR.24H PO SCH (08:26)
[2020-04-26] MEDS: FINASTERIDE (5 MG) 5 MG TABLET PO SCH (08:27)
--- NOTE | 2020-04-26 08:30 | NUR ---
HOSPICE EDUCATOR NOTE PATIENT'S SATURATION HAS DROPPED TO LOW 80'S. RT NOTIFIED. WILL CONTINUE TO MONITOR.
[2020-04-26] MEDS: DEXAMETHASONE SOD PHOSPHATE 4 MG/ML VIAL IV SCH (08:33)
--- NOTE | 2020-04-26 09:30 | NUR ---
WATCH GUARD GATE NOTE PATIENT HAS NO SIGNS OF LABORED BREATHING AND IS SATURATING 86-88%. WILL CONTINUE TO MONITOR.
[2020-04-26 12:00] VITALS: BP 100/5
[2020-04-26 16:00] VITALS: BP 91/42
[2020-04-26] MEDS: GUAIFENESIN/CODEINE 10 ML UDC PO PRN ×2 (17:36→23:57)
--- NOTE | 2020-04-26 19:14 | NUR ---
RN CLOSING NOTE PATIENT IS IN BED WITH HOB AT SEMI FOWLERS POSITION. PATIENT IS AOX4. PATIENT IS STABLE ON 40L 100% HF AND 15L NRB WITH NO SIGNS OF LABORED BREATHING. JUMA MIDLINE IS PATENT, INTACT, AND HAS NO SIGNS OF INFILTRATION. BED IS LOCKED IN THE LOWEST POSITION, CALL ELY WITHIN REACH, 3 GUARD RAILS RAISED AND ALL HOSPITAL SAFETY PRECAUTIONS ARE BEING FOLLOWED. ENDORSED TO DRY JANITOR RN FOR CONTINUUM OF CARE.
[2020-04-26 20:00] VITALS: BP 93/48
[2020-04-26] MEDS: SIMVASTATIN 10 MG TABLET PO SCH (21:35)
[2020-04-26] MEDS: LATANOPROST EYE DROP 0.005% 2.5 ML BOTTLE EACHEYE SCH (21:35)
[2020-04-26] MEDS: *INSULIN REGULAR(HUMULIN R)HUM 100 UNIT/ML VIAL SQ PRN (21:36)
[2020-04-27] VITALS (17 sets, daily range): BP systolic 95–166; BP diastolic 43–115
[2020-04-27 06:44] LABS: BASOPHILS % (AUTO) 0.4 % (0.0-2.0); EOSINOPHILS % (AUTO) 8.7 % (0.0-6.0); HEMATOCRIT 40 % (39-51); LYMPHOCYTES # (AUTO) 0.5 /CMM (0.8-4.8); LYMPHOCYTES % (AUTO) 7.8 % (20.0-44.0); MEAN CORPUSCULAR HGB CONC 32 g/dl (31.0-36.0); MEAN CORPUSCULAR VOLUME 82 fL (80-96); MONOCYTES # (AUTO) 0.2 /CMM (0.1-1.30); MONOCYTES % (AUTO) 2.8 % (2.0-12.0); NEUTROPHILS # (AUTO) 5.2 /CMM (1.8-8.9); NEUTROPHILS % (AUTO) 80.3 % (43.0-81.0); PLATELET COUNT (AUTO) 88 /CMM (150-450); WHITE BLOOD COUNT (AUTO) 6.5 K/uL (4.3-11.0)
[2020-04-27 06:55] LABS: CALCIUM, SERUM 8.3 mg/dL (8.5-10.1); CREATININE 0.8 mg/dL (0.6-1.3); POTASSIUM 3.7 mmol/L (3.5-5.1)
[2020-04-27 07:17] LABS: C-REACTIVE PROTEIN 5.4 mg/dL (0.0-0.9)
[2020-04-27] MEDS: PANTOPRAZOLE 40 MG TABLET.DR PO SCH (07:20)
--- NOTE | 2020-04-27 07:30 | NUR ---
RN OPENING NOTE PATIENT IS IN BED WITH HOB AT SEMI FOWLERS POSITION. PATIENT IS AOX4. PATIENT IS ON HF 40L 100% O2 AND 15L VIA NRB WITH NO SIGNS OF LABORED BREATHING. SR NOTED ON MONITOR. URINAL IS AT BEDSIDE. SACRAL SKIN TEAR NOTED. JUMA ML IS PATENT, INTACT, AND HAS NO SIGNS OF INFILTRATION. BED IS LOCKED IN THE LOWEST POSITION, CALL ELY WITHIN REACH, 3 GUARD RAILS RAISED, AND ALL HOSPITAL SAFETY PRECAUTIONS ARE BEING FOLLOWED. WILL CONTINUE TO MONITOR.
[2020-04-27] MEDS: BLOOD SUGAR DIAGNOSTIC 1 EACH STRIP VI SCH ×4 (07:48→22:24)
--- NOTE | 2020-04-27 07:59 | NUR ---
SPOKE WITH DR. CHILDERS IN REGARDS TO O2 SATURATION IN MID 80S. ADVISED TO OBTAIN ABG. ABG ORDER PLACED.
[2020-04-27 08:00] LABS: EOSINOPHILS % (MANUAL) 11 % (0-4); LYMPHOCYTES % (MANUAL) 9 % (16-48); MONOCYTES % (MANUAL) 1 % (0-11.0); NEUTROPHILS % (MANUAL) 79 (42-76)
[2020-04-27] MEDS: TAMSULOSIN 0.4 MG CAP.SR.24H PO SCH (08:40)
[2020-04-27] MEDS: DEXAMETHASONE SOD PHOSPHATE 4 MG/ML VIAL IV SCH (08:40)
[2020-04-27] MEDS: FINASTERIDE (5 MG) 5 MG TABLET PO SCH (08:40)
[2020-04-27] MEDS: ASPIRIN 81 MG TAB.CHEW PO SCH (08:40)
[2020-04-27] MEDS: AMLODIPINE BESYLATE 5 MG TABLET PO SCH (08:40)
[2020-04-27] MEDS: CARVEDILOL 12.5 MG TABLET PO SCH ×2 (08:41→16:40)
[2020-04-27 09:01] LABS: ABG BASE EXCESS 0.5 mmol/L; ABG OXYGEN SATURATION 82.3 % (92.0-98.5); ABG PCO2 37.4 mmHg (35.0-45.0); ABG PH 7.434 (7.350-7.450); ABG PO2 45.6 mmHg (75.0-100.0); COHb 2.2 % (0.5-1.5); MetHb 0.1 % (0.0-1.5); O2Hb 80.4 % (94.0-97.0); SITE, ABG Right Radial; VENT MODE, BG HFNC 100%
[2020-04-27] MEDS ORDERED: DEXAMETHASONE SOD PHOSPHATE 4 MG/ML VIAL IV ONE (09:30)
--- NOTE | 2020-04-27 09:30 | NUR ---
SENIOR MEDICAL BILLING SPECIALIST NOTE TRANSPORTED PATIENT TO ICU ROOM 258. GAVE REPORT TO WILSON MONSALVE FOR RAFI.
--- NOTE | 2020-04-27 09:45 | NUR ---
ICU NOTES RECEIVED PATIENT VIA HOSPITAL BED, BEDSIDE REPORT GIVEN BY WILSON WASSERMAN. PATIENT IS ON OXYGEN 15LPM VIA NRB MASK. SATING @80%, PATIENT WILL BE PUT IN BIPAP PER DR. CHILDERS. WILL CONTINUE TO MONITOR.
--- NOTE | 2020-04-27 09:50 | NUR ---
RT NOTE: LATE ENTRY-@0940- ALERT PATIENT PLACED ON BIPAP 25/02, RR=12,[id number]% PER DR CHILDERS'S ORDER. PATIENT TOLERATING WELL. ALARMS SET AND AUDIBLE. AMBU BAG AT [facility].
[2020-04-27 11:58] LABS: ABG BASE EXCESS -0.3 mmol/L; ABG OXYGEN SATURATION 92.4 % (92.0-98.5); ABG PCO2 37.6 mmHg (35.0-45.0); ABG PO2 64.1 mmHg (75.0-100.0); AaDO2 611.3 mmHg; COHb 1.4 % (0.5-1.5); MetHb 0.1 % (0.0-1.5); SITE, ABG Right Radial; VENT MODE, BG BIPAP 22/12
--- NOTE | 2020-04-27 12:04 | NUR ---
RT NOTE: ABG RESULTS REPORTED TO ZAYDA SYLVESTER AND . WILL CONTINUE TO MONITOR.
--- NOTE | 2020-04-27 18:30 | NUR ---
ICU NOTES PATIENT IN BED RESTING COMFORTABLY IN MODERATE HIGH BACK REST, A/OX4, ABLE TO MAKE NEEDS KNOWN, NO SIGNS OF DISTRESS TOLERATING BIPAP. NOTED WITH MIDLINE ON JUMA, INTACT AND PATENT. SAFETY MEASURES IN PLACE, BED IN LOWEST POSITION, LOCKED, SIDE RAILS UP, CALL LIGHT WITHIN REACH. WILL ENDORSE TO PROCESS TREATER NURSE FOR RAFI.
[2020-04-27] MEDS: SIMVASTATIN 10 MG TABLET PO SCH (21:07)
[2020-04-27] MEDS: LATANOPROST EYE DROP 0.005% 2.5 ML BOTTLE EACHEYE SCH (22:24)
[2020-04-28] VITALS (29 sets, daily range): BP systolic 95–152; BP diastolic 42–85
[2020-04-28] MEDS: PANTOPRAZOLE 40 MG TABLET.DR PO SCH (07:30)
--- NOTE | 2020-04-28 07:30 | NUR ---
RN OPENING NOTES PATIENT PRESENT IN BED A/OX4, ON BIPAP MASK, TOLERATING SETTINGS WELL, SPO2 IS 91% AT THIS TIME, NSR ON TELE-MONITOR , URINAL PRESENT AT BED SITE, R UA MID-LINE PRESENT, FLUSHED, PATENT AND LOCKED, SKIN IS INTACT, PATIENT'S BACK SUPPORTED WITH PILLOWS, HOB ELEVATED, SAFETY MEASURES IN PLACE, BED IS LOCKED, IN LOWEST POTION, CALL LIGHT IN REACH, WILL CONT TO MONITOR
[2020-04-28] MEDS: BLOOD SUGAR DIAGNOSTIC 1 EACH STRIP VI SCH ×4 (07:54→22:20)
[2020-04-28] MEDS: INSULIN REGULAR, HUMAN 100 UNIT/ML 3 ML VIAL SQ PRN (07:54)
--- NOTE | 2020-04-28 07:57 | NUR ---
RN NOTE UNABLE TO ADMINISTER PO MEDS, PATIENT IS ON BIPAP MASK RECEIVING O2 TREATMENT, UNABLE TO SATURATE WITHOUT IT
--- NOTE | 2020-04-28 08:00 | NUR ---
PT. IS AWAKE AND ALERT PLACE INTO NON-REBREATHER MASK @ 15 LPM O2 FLOW. Pt. is tolerating well on new intervention, no increase work of breathing noted. Addendum: 04/28/20 at 0924 by JUAN C BLACKBURN RT Amended: Links added.
[2020-04-28] MEDS: ASPIRIN 81 MG TAB.CHEW PO SCH (09:46)
[2020-04-28] MEDS: TAMSULOSIN 0.4 MG CAP.SR.24H PO SCH (09:46)
[2020-04-28] MEDS: CARVEDILOL 12.5 MG TABLET PO SCH ×2 (09:46→16:47)
[2020-04-28] MEDS: AMLODIPINE BESYLATE 5 MG TABLET PO SCH (09:47)
[2020-04-28] MEDS: DEXAMETHASONE SOD PHOSPHATE 4 MG/ML VIAL IV SCH (09:47)
[2020-04-28] MEDS: FINASTERIDE (5 MG) 5 MG TABLET PO SCH (09:48)
[2020-04-28] MEDS: ENOXAPARIN SODIUM 40 MG/0.4 ML DISP.SYRIN SQ SCH (11:39)
--- NOTE | 2020-04-28 12:00 | NUR ---
TOLERATING NON-REBREATHER MASK WELL @15L, SWITCHED O2 SENSOR LOCATION, SPO2 IS 89-93%
--- NOTE | 2020-04-28 13:30 | NUR ---
PATIENT'S DAUGHTER ISHAN called, requested assistance ith pt's paperwork, called group social worker to refer request
--- NOTE | 2020-04-28 15:00 | NUR ---
RN NOTE TOOK PATIENT TO CT SCAN [facility] P[facility] ACCORDING TO ASLS PROTOCOL, TOLERATED PROCEDURE WELL, BACK IN ROOM, RESTING COMFORTABLY
[2020-04-28] MEDS ORDERED: IOHEXOL-350 100 ML VIAL IV ONE (15:12)
[2020-04-28] MEDS ORDERED: IV NS 0.9% 250 ML IV ONE (15:13)
--- NOTE | 2020-04-28 15:29 | NUR ---
Letter of Admission: LUCITA notified by pt.'s RNShawnee that the pt.'s daughter, Ange Connor [phone] is requesting a letter. LUCITA called & spoke to Ange. Ange stated, the pt. has a court date on 04/30/2020 and needs a letter stating the pt. is admitted at [facility]. Noted. LUCITA completed Letter of Admission. Pt.'s daughter to pick it up today when she gets off work after 6 pm. LUCITA gave letter to ICU nurseShawnee to file in pt.'s chart for family pick-up. SW will be available as needed.
--- NOTE | 2020-04-28 16:43 | NUR ---
RN NOTE SW NOTE NOTED, HOWEVER NO LETTER RECEIVED TODAY FROM LUCITA , SOCIAL INK JET OPERATOR ([phone]) AND BANK CASHIER AWARE
--- NOTE | 2020-04-28 17:00 | NUR ---
Requesting to remove compressions boots, feeling uncomfortable, education provided x3, risk and benefits explained, still wishing to take off
[2020-04-28] MEDS: *INSULIN REGULAR(HUMULIN R)HUM 100 UNIT/ML VIAL SQ PRN (17:41)
--- NOTE | 2020-04-28 18:44 | NUR ---
RN CLOSING NOTES PATIENT REMAINS IN BED, TOLERATING NON-REBREATHER MASK WITH SPO2 OF 85-88%,REP EVEN, UNLABORED, CALM, COMFORT NEEDS PROVIDED, REPOSITIONED FREQUENTLY, CLEANED, ASSISTED WITH URINAL, EDUCATION REGARDING CONDITION AND PLAN OF TREATMENT PROVIDED, SAFETY MEASURES IN PLACE, CALL LIGHT IN REACH, BED IS LOCKED, IN LOWEST POSITION, WILL ENDORSE TO PM SHIFT RN FOR RAFI
--- NOTE | 2020-04-28 20:00 | NUR ---
RECEIVED PATIENT FROM WILSON ALVAREZ. PATIENT A/O X4, NO C/O PAIN AND RESTING COMFORTABLY IN BED. BREATHING IS UNLABORED AND PATIENT IS TOLERATING NON-REBREATHER @ 15 LPM WITH O2 SATS 84-88%.
[2020-04-28] MEDS: LATANOPROST EYE DROP 0.005% 2.5 ML BOTTLE EACHEYE SCH (22:00)
[2020-04-28] MEDS: SIMVASTATIN 10 MG TABLET PO SCH (22:01)
--- NOTE | 2020-04-28 22:30 | NUR ---
Latanoprost eye drops not available on unit to give. Oscar Condon RN notified and call made to nursing medical office supervisor. Nursing medical office supervisor will bring medication to unit.
[2020-04-28] MEDS ORDERED: LATANOPROST EYE DROP 0.005% 2.5 ML BOTTLE ONE (23:14)
[2020-04-29] VITALS (26 sets, daily range): BP systolic 84–141; BP diastolic 48–100
--- NOTE | 2020-04-29 | NUR ---
REQUESTED PATIENT PLACE SCDs ON AT THIS TIME. PATIENT DECLINED. REVIEWED IMPORTANCE OF WEARING SCDs TO INCREASE BLOOD FLOW/PREVENT BLOOD CLOTS. PATIENT DECLINES DESPITE VERBALIZING UNDERSTANDING.
[2020-04-29] MEDS: LATANOPROST EYE DROP 0.005% 2.5 ML BOTTLE EACHEYE SCH ×2 (00:05→22:00)
--- NOTE | 2020-04-29 04:00 | NUR ---
PATIENT DECLINED BED BATH AT THIS TIME. STATES HE RECEIVED ONE YESTERDAY. CONTINUES TO DECLINE TO PUT SCDs ON.
[2020-04-29] MEDS: GUAIFENESIN/CODEINE 10 ML UDC PO PRN (04:24)
[2020-04-29 04:41] LABS: CALCIUM, SERUM 8.6 mg/dL (8.5-10.1); CREATININE 0.8 mg/dL (0.6-1.3); POTASSIUM 4.2 mmol/L (3.5-5.1)
[2020-04-29 04:47] LABS: C-REACTIVE PROTEIN 10.4 mg/dL (0.0-0.9)
[2020-04-29 04:59] LABS: BASOPHILS % (AUTO) 0.5 % (0.0-2.0); EOSINOPHILS % (AUTO) 5.7 % (0.0-6.0); HEMATOCRIT 42 % (39-51); HEMOGLOBIN 13.4 g/dL (13.5-17.5); LYMPHOCYTES # (AUTO) 0.4 /CMM (0.8-4.8); LYMPHOCYTES % (AUTO) 12.1 % (20.0-44.0); MEAN CORPUSCULAR HGB CONC 32 g/dl (31.0-36.0); MEAN CORPUSCULAR VOLUME 83 fL (80-96); MONOCYTES # (AUTO) 0.1 /CMM (0.1-1.30); MONOCYTES % (AUTO) 3.8 % (2.0-12.0); NEUTROPHILS # (AUTO) 2.7 /CMM (1.8-8.9); NEUTROPHILS % (AUTO) 77.9 % (43.0-81.0); PLATELET COUNT (AUTO) 121 /CMM (150-450); RED BLOOD CELL COUNT(AUTO) 5.09 MIL/uL (4.5-6.0); WHITE BLOOD COUNT (AUTO) 3.5 K/uL (4.3-11.0)
--- NOTE | 2020-04-29 06:00 | NUR ---
PATIENT TOLERATED NON-REBREATHER MASK WITH SPO2 RANGING FROM 84-93% OVERNIGHT ON 15L. WITH REPOSITIONING PATIENT NOTED TO DESAT TO MID 70s, BUT RECOVERED WELL. PATIENT REPOSITIONED FREQUENTLY THROUGHOUT THE NIGHT. BED LOCKED AND IN LOW POSITION, CALL ELY WITHIN REACH AND PERSONAL ITEMS CLOSE BY PATIENT. WILL ENDORSE TO DAY SHIFT NURSE FOR CONTINUATION OF CARE.
[2020-04-29] MEDS: BLOOD SUGAR DIAGNOSTIC 1 EACH STRIP VI SCH ×4 (07:30→21:58)
[2020-04-29 08:28] LABS: ABG BASE EXCESS -1.6 mmol/L; ABG PH 7.397 (7.350-7.450); ABG PO2 46.7 mmHg (75.0-100.0); AaDO2 628.3 mmHg; COHb 1.5 % (0.5-1.5); MetHb 0.2 % (0.0-1.5); O2Hb 80.6 % (94.0-97.0); SITE, ABG Right Radial; VENT MODE, BG NON REBREATHER 15L
--- NOTE | 2020-04-29 08:42 | NUR ---
WOUND CARE CONSULT: REVIEWED CHART, NURSING DOCUMENTATION AND PHOTO WHICH INDICATES GLUTEAL CREASE INCONTINENCE ASSOCIATED SKIN DAMAGE AND SOME DISCOLORATION TO BUTTOCKS SKIN. RECOMMENDATIONS MADE FOR SKIN PROTECTION. DISCUSSED WITH NURSING STAFF. PT IS ON [facility] LOW AIRLOSS BED. PT NOT TURNED FOR SKIN ASSESSMENT AT THIS TIME DUE TO PT UNSTABLE (DESATURATING) PER RN. MD IN AGREEMENT WITH PLAN OF CARE.
[2020-04-29] MEDS: Z GUARD REMEDY 2 OZ OINT TP SCH (09:00)
[2020-04-29] MEDS: FINASTERIDE (5 MG) 5 MG TABLET PO SCH (09:18)
[2020-04-29] MEDS: CARVEDILOL 12.5 MG TABLET PO SCH ×2 (09:18→17:54)
[2020-04-29] MEDS: ASPIRIN 81 MG TAB.CHEW PO SCH (09:19)
[2020-04-29] MEDS: AMLODIPINE BESYLATE 5 MG TABLET PO SCH (09:19)
[2020-04-29] MEDS: TAMSULOSIN 0.4 MG CAP.SR.24H PO SCH (09:19)
[2020-04-29] MEDS: DEXAMETHASONE SOD PHOSPHATE 4 MG/ML VIAL IV SCH (09:20)
[2020-04-29] MEDS: PANTOPRAZOLE 40 MG TABLET.DR PO SCH (09:30)
[2020-04-29] MEDS: ENOXAPARIN SODIUM 40 MG/0.4 ML DISP.SYRIN SQ SCH (09:55)
[2020-04-29 11:28] LABS: ABG BASE EXCESS -0.4 mmol/L; ABG OXYGEN SATURATION 86.9 % (92.0-98.5); ABG PCO2 36.4 mmHg (35.0-45.0); ABG PH 7.428 (7.350-7.450); ABG PO2 53.1 mmHg (75.0-100.0); AaDO2 623.5 mmHg; MetHb 0.1 % (0.0-1.5); O2Hb 85.9 % (94.0-97.0); SITE, ABG Right Radial; VENT MODE, BG HFNC 40L/100% + NRB 15L
[2020-04-29] MEDS: INSULIN REGULAR, HUMAN 100 UNIT/ML 3 ML VIAL SQ PRN (18:32)
[2020-04-29] MEDS: Z GUARD REMEDY 2 OZ OINT TP PRN (18:34)
[2020-04-29] MEDS: SIMVASTATIN 10 MG TABLET PO SCH (21:58)
[2020-04-29] MEDS: *INSULIN REGULAR(HUMULIN R)HUM 100 UNIT/ML VIAL SQ PRN (22:08)
[2020-04-30] VITALS (27 sets, daily range): BP systolic 85–128; BP diastolic 29–76
[2020-04-30] MEDS: GUAIFENESIN/CODEINE 10 ML UDC PO PRN (01:47)
[2020-04-30 04:37] LABS: BASOPHILS % (AUTO) 0.5 % (0.0-2.0); EOSINOPHILS % (AUTO) 8.8 % (0.0-6.0); HEMATOCRIT 39 % (39-51); HEMOGLOBIN 12.5 g/dL (13.5-17.5); LYMPHOCYTES # (AUTO) 0.5 /CMM (0.8-4.8); LYMPHOCYTES % (AUTO) 16.4 % (20.0-44.0); MEAN CORPUSCULAR HGB CONC 32 g/dl (31.0-36.0); MEAN CORPUSCULAR VOLUME 82 fL (80-96); MONOCYTES # (AUTO) 0.2 /CMM (0.1-1.30); MONOCYTES % (AUTO) 5.4 % (2.0-12.0); NEUTROPHILS % (AUTO) 68.9 % (43.0-81.0); PLATELET COUNT (AUTO) 108 /CMM (150-450); RED BLOOD CELL COUNT(AUTO) 4.76 MIL/uL (4.5-6.0); WHITE BLOOD COUNT (AUTO) 2.9 K/uL (4.3-11.0)
[2020-04-30 04:47] LABS: CALCIUM, SERUM 8.7 mg/dL (8.5-10.1); CREATININE 0.9 mg/dL (0.6-1.3); POTASSIUM 4.3 mmol/L (3.5-5.1)
[2020-04-30 04:48] LABS: C-REACTIVE PROTEIN 4.9 mg/dL (0.0-0.9)
[2020-04-30 05:42] LABS: EOSINOPHILS % (MANUAL) 9 % (0-4); LYMPHOCYTES % (MANUAL) 12 % (16-48); MONOCYTES % (MANUAL) 6 % (0-11.0); NEUTROPHILS % (MANUAL) 73 (42-76)
--- NOTE | 2020-04-30 06:00 | NUR ---
patient tolerating NR at 15L/min with HFNC at 40L and 100%. O2 sats mid 80s-high 90s overnight. tolerated repositioning. no complaints of pain or discomfort overnight. bed in low position, call phillips within reach and all alarms present. will endorse to dayshift.
[2020-04-30] MEDS: BLOOD SUGAR DIAGNOSTIC 1 EACH STRIP VI SCH ×4 (07:30→21:38)
[2020-04-30 09:02] LABS: ABG BASE EXCESS 1.6 mmol/L; ABG OXYGEN SATURATION 89.5 % (92.0-98.5); ABG PCO2 43.4 mmHg (35.0-45.0); ABG PH 7.405 (7.350-7.450); COHb 1.3 % (0.5-1.5); MetHb 0.1 % (0.0-1.5); O2Hb 88.2 % (94.0-97.0); SITE, ABG Right Radial; VENT MODE, BG HFNC 100% + NRB
[2020-04-30] MEDS: ASPIRIN 81 MG TAB.CHEW PO SCH (09:48)
[2020-04-30] MEDS: FINASTERIDE (5 MG) 5 MG TABLET PO SCH (09:48)
[2020-04-30] MEDS: TAMSULOSIN 0.4 MG CAP.SR.24H PO SCH (09:50)
[2020-04-30] MEDS: AMLODIPINE BESYLATE 5 MG TABLET PO SCH (09:50)
[2020-04-30] MEDS: CARVEDILOL 12.5 MG TABLET PO SCH ×2 (09:50→17:20)
[2020-04-30] MEDS: ENOXAPARIN SODIUM 40 MG/0.4 ML DISP.SYRIN SQ SCH (09:51)
[2020-04-30] MEDS: DEXAMETHASONE SOD PHOSPHATE 4 MG/ML VIAL IV SCH (09:53)
[2020-04-30] MEDS: PANTOPRAZOLE 40 MG TABLET.DR PO SCH (09:56)
[2020-04-30] MEDS: Z GUARD REMEDY 2 OZ OINT TP SCH (09:57)
[2020-04-30] MEDS: INSULIN REGULAR, HUMAN 100 UNIT/ML 3 ML VIAL SQ PRN ×2 (13:25→17:48)
[2020-04-30] MEDS: SIMVASTATIN 10 MG TABLET PO SCH (21:33)
[2020-04-30] MEDS: LATANOPROST EYE DROP 0.005% 2.5 ML BOTTLE EACHEYE SCH (21:37)
[2020-04-30] MEDS: *INSULIN REGULAR(HUMULIN R)HUM 100 UNIT/ML VIAL SQ PRN (21:46)
--- NOTE | 2020-04-30 23:00 | NUR ---
MIDLINE DRESSING CHANGED
[2020-05-01] VITALS (24 sets, daily range): BP systolic 94–138; BP diastolic 33–80
[2020-05-01] MEDS: GUAIFENESIN/CODEINE 10 ML UDC PO PRN ×4 (00:54→23:27)
--- NOTE | 2020-05-01 06:00 | NUR ---
no significant events overnight. O2 sats remain between mid 80s-high 90s on non-breather and hfnc. No c/o pain or discomfort overnight. safe measures remain in place. will endorse to day shift rn.
[2020-05-01] MEDS: BLOOD SUGAR DIAGNOSTIC 1 EACH STRIP VI SCH ×4 (07:30→21:49)
[2020-05-01 08:41] LABS: ABG BASE EXCESS 1.7 mmol/L; ABG OXYGEN SATURATION 85.5 % (92.0-98.5); ABG PCO2 41.9 mmHg (35.0-45.0); ABG PH 7.418 (7.350-7.450); ABG PO2 50.8 mmHg (75.0-100.0); AaDO2 620.3 mmHg; MetHb 0.1 % (0.0-1.5); O2Hb 84.6 % (94.0-97.0); SITE, ABG Right Radial; VENT MODE, BG HFNC 100%
[2020-05-01] MEDS: Z GUARD REMEDY 2 OZ OINT TP SCH (09:00)
[2020-05-01] MEDS: FINASTERIDE (5 MG) 5 MG TABLET PO SCH (09:30)
[2020-05-01] MEDS: ASPIRIN 81 MG TAB.CHEW PO SCH (09:30)
[2020-05-01] MEDS: DEXAMETHASONE SOD PHOSPHATE 4 MG/ML VIAL IV SCH (09:31)
[2020-05-01] MEDS: TAMSULOSIN 0.4 MG CAP.SR.24H PO SCH (09:32)
[2020-05-01] MEDS: ENOXAPARIN SODIUM 40 MG/0.4 ML DISP.SYRIN SQ SCH (09:32)
[2020-05-01] MEDS: AMLODIPINE BESYLATE 2.5 MG TABLET PO SCH (10:00)
[2020-05-01] MEDS: CARVEDILOL 12.5 MG TABLET PO SCH ×2 (10:00→17:02)
[2020-05-01] MEDS: PANTOPRAZOLE 40 MG TABLET.DR PO SCH (10:01)
[2020-05-01] MEDS ORDERED: CARVEDILOL 12.5 MG TABLET PO SCH (17:00)
[2020-05-01] MEDS: *INSULIN REGULAR(HUMULIN R)HUM 100 UNIT/ML VIAL SQ PRN ×2 (18:13→22:07)
--- NOTE | 2020-05-01 19:15 | NUR ---
PATIENT A/O X4. NO COMPLAINTS OF PAIN. TOLERATING HFNC 2 40L/100% AND NON-REBREATHER AT 15L. SAFETY MEASURES IN PLACE: BED IN LOWEST POSITION AND LOCKED, CALL ELY/PERSONAL ITEMS WITHIN REACH AND ALL ALARMS ACTIVATED. WILL CONTINUE TO MONITOR.
[2020-05-01] MEDS: SIMVASTATIN 10 MG TABLET PO SCH (21:48)
[2020-05-01] MEDS: LATANOPROST EYE DROP 0.005% 2.5 ML BOTTLE EACHEYE SCH (21:50)
--- NOTE | 2020-05-01 22:30 | NUR ---
PATIENT OFFERED A BATH AND REFUSES TONIGHT.
[2020-05-02] VITALS (25 sets, daily range): BP systolic 89–145; BP diastolic 45–116
[2020-05-02 04:52] LABS: BASOPHILS % (AUTO) 0.1 % (0.0-2.0); EOSINOPHILS % (AUTO) 10.3 % (0.0-6.0); HEMATOCRIT 38 % (39-51); HEMOGLOBIN 12.3 g/dL (13.5-17.5); LYMPHOCYTES # (AUTO) 0.5 /CMM (0.8-4.8); LYMPHOCYTES % (AUTO) 17.8 % (20.0-44.0); MEAN CORPUSCULAR HGB CONC 32 g/dl (31.0-36.0); MEAN CORPUSCULAR VOLUME 82 fL (80-96); MONOCYTES # (AUTO) 0.2 /CMM (0.1-1.30); MONOCYTES % (AUTO) 5.6 % (2.0-12.0); NEUTROPHILS # (AUTO) 1.9 /CMM (1.8-8.9); NEUTROPHILS % (AUTO) 66.2 % (43.0-81.0); PLATELET COUNT (AUTO) 113 /CMM (150-450); RED BLOOD CELL COUNT(AUTO) 4.68 MIL/uL (4.5-6.0); WHITE BLOOD COUNT (AUTO) 2.8 K/uL (4.3-11.0)
[2020-05-02] MEDS: GUAIFENESIN/CODEINE 10 ML UDC PO PRN ×3 (05:15→22:32)
--- NOTE | 2020-05-02 06:00 | NUR ---
patient tolerated hfnc and non-rebreather with unchanged settings overnight. O2 sats mid to high 90s. no c/o pain, sob and patient remains a/o x4. will endorse to day RN.
[2020-05-02 08:26] LABS: ABG BASE EXCESS -0.7 mmol/L; ABG OXYGEN SATURATION 91.4 % (92.0-98.5); ABG PCO2 41.5 mmHg (35.0-45.0); ABG PH 7.386 (7.350-7.450); AaDO2 604.5 mmHg; COHb 1.5 % (0.5-1.5); MetHb 0.2 % (0.0-1.5); O2Hb 89.8 % (94.0-97.0); SITE, ABG Right Brachial; VENT MODE, BG HFNC 100+NRB
[2020-05-02] MEDS: ASPIRIN 81 MG TAB.CHEW PO SCH (08:49)
[2020-05-02] MEDS: TAMSULOSIN 0.4 MG CAP.SR.24H PO SCH (08:49)
[2020-05-02] MEDS: FINASTERIDE (5 MG) 5 MG TABLET PO SCH (08:49)
[2020-05-02] MEDS: CARVEDILOL 12.5 MG TABLET PO SCH ×2 (08:51→17:23)
[2020-05-02] MEDS: AMLODIPINE BESYLATE 2.5 MG TABLET PO SCH (08:51)
[2020-05-02] MEDS: ENOXAPARIN SODIUM 40 MG/0.4 ML DISP.SYRIN SQ SCH (08:53)
[2020-05-02] MEDS: BLOOD SUGAR DIAGNOSTIC 1 EACH STRIP VI SCH ×4 (08:56→22:32)
[2020-05-02] MEDS ORDERED: AMLODIPINE BESYLATE 2.5 MG TABLET PO SCH (09:00)
[2020-05-02] MEDS: PANTOPRAZOLE 40 MG TABLET.DR PO SCH (09:59)
[2020-05-02] MEDS: DEXAMETHASONE SOD PHOSPHATE 4 MG/ML VIAL IV SCH (10:00)
[2020-05-02] MEDS: INSULIN REGULAR, HUMAN 100 UNIT/ML 3 ML VIAL SQ PRN (13:33)
[2020-05-02] MEDS: Z GUARD REMEDY 2 OZ OINT TP SCH (17:13)
[2020-05-02] MEDS: *INSULIN REGULAR(HUMULIN R)HUM 100 UNIT/ML VIAL SQ PRN (17:34)
[2020-05-02] MEDS: SIMVASTATIN 10 MG TABLET PO SCH (22:32)
[2020-05-02] MEDS: LATANOPROST EYE DROP 0.005% 2.5 ML BOTTLE EACHEYE SCH (22:32)
[2020-05-03] VITALS (25 sets, daily range): BP systolic 99–145; BP diastolic 41–79
[2020-05-03 05:05] LABS: BASOPHILS % (AUTO) 0.5 % (0.0-2.0); EOSINOPHILS % (AUTO) 6.1 % (0.0-6.0); HEMATOCRIT 38 % (39-51); HEMOGLOBIN 12.1 g/dL (13.5-17.5); LYMPHOCYTES # (AUTO) 0.6 /CMM (0.8-4.8); LYMPHOCYTES % (AUTO) 19.5 % (20.0-44.0); MEAN CORPUSCULAR HGB CONC 32 g/dl (31.0-36.0); MEAN CORPUSCULAR VOLUME 82 fL (80-96); MONOCYTES # (AUTO) 0.2 /CMM (0.1-1.30); MONOCYTES % (AUTO) 5.4 % (2.0-12.0); NEUTROPHILS # (AUTO) 2.1 /CMM (1.8-8.9); NEUTROPHILS % (AUTO) 68.5 % (43.0-81.0); PLATELET COUNT (AUTO) 127 /CMM (150-450); RED BLOOD CELL COUNT(AUTO) 4.63 MIL/uL (4.5-6.0); WHITE BLOOD COUNT (AUTO) 3.1 K/uL (4.3-11.0)
[2020-05-03 05:21] LABS: ALBUMIN 1.9 g/dL (3.4-5.0); BILIRUBIN,TOTAL 0.7 mg/dL (0.2-1.0); CALCIUM, SERUM 8.1 mg/dL (8.5-10.1); CREATININE 0.7 mg/dL (0.6-1.3); POTASSIUM 3.7 mmol/L (3.5-5.1); TOTAL PROTEIN, SERUM 5.6 g/dL (6.4-8.2)
[2020-05-03 05:47] LABS: ABG BASE EXCESS -0.3 mmol/L; ABG OXYGEN SATURATION 88.7 % (92.0-98.5); ABG PCO2 41.1 mmHg (35.0-45.0); ABG PH 7.395 (7.350-7.450); ABG PO2 59.7 mmHg (75.0-100.0); AaDO2 612.2 mmHg; COHb 1.2 % (0.5-1.5); O2Hb 87.6 % (94.0-97.0); SITE, ABG Right Radial; VENT MODE, BG HFNC 100%
[2020-05-03] MEDS: BLOOD SUGAR DIAGNOSTIC 1 EACH STRIP VI SCH ×4 (07:53→21:49)
[2020-05-03] MEDS: PANTOPRAZOLE 40 MG TABLET.DR PO SCH (07:53)
[2020-05-03] MEDS: INSULIN REGULAR, HUMAN 100 UNIT/ML 3 ML VIAL SQ PRN (08:06)
[2020-05-03] MEDS: Z GUARD REMEDY 2 OZ OINT TP SCH (09:00)
[2020-05-03] MEDS: ASPIRIN 81 MG TAB.CHEW PO SCH (10:28)
[2020-05-03] MEDS: CARVEDILOL 12.5 MG TABLET PO SCH ×2 (10:28→16:45)
[2020-05-03] MEDS: ENOXAPARIN SODIUM 40 MG/0.4 ML DISP.SYRIN SQ SCH (10:28)
[2020-05-03] MEDS: FINASTERIDE (5 MG) 5 MG TABLET PO SCH (10:29)
[2020-05-03] MEDS: AMLODIPINE BESYLATE 2.5 MG TABLET PO SCH (10:29)
[2020-05-03] MEDS: DEXAMETHASONE SOD PHOSPHATE 4 MG/ML VIAL IV SCH (10:41)
[2020-05-03] MEDS: TAMSULOSIN 0.4 MG CAP.SR.24H PO SCH (10:41)
[2020-05-03] MEDS: *INSULIN REGULAR(HUMULIN R)HUM 100 UNIT/ML VIAL SQ PRN ×2 (14:10→18:29)
[2020-05-03] MEDS: GUAIFENESIN/CODEINE 10 ML UDC PO PRN (18:44)
--- NOTE | 2020-05-03 19:00 | NUR ---
Received patient awake,alert,converses,coherent and appropriate.on HIFLOW 40 liters /100 % O2, not in any acute respiratory distress, slight TRINH ,saturating 99-100 %. Needs attended,denies any pain or discomfort. Will maintain isolation for now ( last Covid test done on 04/23/20 is now negative( + last 04/03/20).Will continue to closely monitor respiratory status.
[2020-05-03] MEDS: SIMVASTATIN 10 MG TABLET PO SCH (21:40)
[2020-05-03] MEDS: LATANOPROST EYE DROP 0.005% 2.5 ML BOTTLE EACHEYE SCH (21:43)
[2020-05-04] VITALS (23 sets, daily range): BP systolic 95–156; BP diastolic 47–81
--- NOTE | 2020-05-04 | NUR ---
Remains stable,not in any distress,awake,alert.
[2020-05-04] MEDS: GUAIFENESIN/CODEINE 10 ML UDC PO PRN ×2 (01:18→19:58)
--- NOTE | 2020-05-04 01:30 | NUR ---
Observed to easily desaturate in the low 80's when moving/turning and with head of bed down to flat position with obvious sign of SOB.
--- NOTE | 2020-05-04 04:00 | NUR ---
Asleep,stable,breathing comfortably, saturating 100 %.
--- NOTE | 2020-05-04 05:30 | NUR ---
Refused AM care at this time, he wants to rest and sleep for now.
--- NOTE | 2020-05-04 07:00 | NUR ---
Remains stable.Report given to ishmael Atkinson.
--- NOTE | 2020-05-04 07:10 | NUR ---
RN NOTES RECEIVED PT ON BED, A/Ox4, ON HIGH FLOW O2 , NO RESPIRATORY DISTRESS NOTED,O2 SAT WNL, ON TELE SR HR IN 70'S, VOIDING PER URINAL , R UPPER ARM MIDLINE SITE CLEAN, DRY AND INTACT, SR UP x3, CALL LIGHT WITHIN EASY REACH, BED LOCKED AND IN LOWEST POSITION, CONTINUE TO MONITOR .
[2020-05-04] MEDS: PANTOPRAZOLE 40 MG TABLET.DR PO SCH (08:09)
[2020-05-04] MEDS: TAMSULOSIN 0.4 MG CAP.SR.24H PO SCH (08:09)
[2020-05-04] MEDS: DEXAMETHASONE SOD PHOSPHATE 4 MG/ML VIAL IV SCH (08:09)
[2020-05-04] MEDS: CARVEDILOL 12.5 MG TABLET PO SCH ×2 (08:10→17:29)
[2020-05-04] MEDS: ASPIRIN 81 MG TAB.CHEW PO SCH (08:10)
[2020-05-04] MEDS: AMLODIPINE BESYLATE 2.5 MG TABLET PO SCH (08:10)
[2020-05-04] MEDS: FINASTERIDE (5 MG) 5 MG TABLET PO SCH (08:10)
[2020-05-04] MEDS: Z GUARD REMEDY 2 OZ OINT TP SCH (08:12)
[2020-05-04] MEDS: BLOOD SUGAR DIAGNOSTIC 1 EACH STRIP VI SCH ×4 (08:12→22:15)
[2020-05-04] MEDS: ENOXAPARIN SODIUM 40 MG/0.4 ML DISP.SYRIN SQ SCH (09:00)
--- NOTE | 2020-05-04 10:00 | NUR ---
RN NOTES PT ON HIGH FLOW O2 AND NONREBREATHER MASK . NONREBREATHER D/TA PER MD ORDER , O2 SAT DROPPED TO 70'S , PT PLACED BACK ON NONREBREATHER MASK . CONTINUE TO MONITOR
[2020-05-04] MEDS ORDERED: ENOXAPARIN SODIUM 40 MG/0.4 ML DISP.SYRIN SQ SCH (12:00)
[2020-05-04] MEDS: *INSULIN REGULAR(HUMULIN R)HUM 100 UNIT/ML VIAL SQ PRN ×2 (12:07→17:30)
--- NOTE | 2020-05-04 17:00 | NUR ---
RN NOTES PT REMANINS ON HIGH FLOW O2 AND NONBREATHER MASK , O2 SAT ARIANA TO 70'S ON HIGH FLOW ONLY, PT PALCED BACK ON NONREBREATHER MASK AND HIGH FLOW O2 .
--- NOTE | 2020-05-04 18:17 | NUR ---
RN NOTES VSS STABLE, AT THIS TIME , NO SIGNIFICANT CHANGES NOTED ON THIS SHIFT, WILL ENDORSE TO BUTTON DECORATING MACHINE OPERATOR NURSE FOR CONTINUITY OF CARE .
[2020-05-04] MEDS: SIMVASTATIN 10 MG TABLET PO SCH (22:15)
[2020-05-04] MEDS: CLOTRIMAZOLE 1% 15 GM TUBE TP SCH (22:15)
[2020-05-04] MEDS: LATANOPROST EYE DROP 0.005% 2.5 ML BOTTLE EACHEYE SCH (22:16)
[2020-05-05] VITALS (26 sets, daily range): BP systolic 91–175; BP diastolic 39–115
[2020-05-05] MEDS: GUAIFENESIN/CODEINE 10 ML UDC PO PRN ×2 (02:33→21:31)
[2020-05-05 05:00] LABS: BASOPHILS % (AUTO) 0.8 % (0.0-2.0); EOSINOPHILS % (AUTO) 5.3 % (0.0-6.0); HEMATOCRIT 37 % (39-51); HEMOGLOBIN 12.3 g/dL (13.5-17.5); LYMPHOCYTES # (AUTO) 0.7 /CMM (0.8-4.8); LYMPHOCYTES % (AUTO) 20.5 % (20.0-44.0); MEAN CORPUSCULAR HGB CONC 33 g/dl (31.0-36.0); MEAN CORPUSCULAR VOLUME 82 fL (80-96); MONOCYTES # (AUTO) 0.2 /CMM (0.1-1.30); MONOCYTES % (AUTO) 5.5 % (2.0-12.0); NEUTROPHILS # (AUTO) 2.5 /CMM (1.8-8.9); NEUTROPHILS % (AUTO) 67.9 % (43.0-81.0); PLATELET COUNT (AUTO) 140 /CMM (150-450); RED BLOOD CELL COUNT(AUTO) 4.57 MIL/uL (4.5-6.0); WHITE BLOOD COUNT (AUTO) 3.6 K/uL (4.3-11.0)
[2020-05-05 05:11] LABS: CALCIUM, SERUM 8.3 mg/dL (8.5-10.1); CREATININE 0.8 mg/dL (0.6-1.3); POTASSIUM 3.8 mmol/L (3.5-5.1)
[2020-05-05 05:26] LABS: C-REACTIVE PROTEIN 3.3 mg/dL (0.0-0.9)
--- NOTE | 2020-05-05 07:54 | NUR ---
WOUND CARE CONSULT/FOLLOW UP: PT SEEN FOR GLUTEAL CREASE MOISTURE ASSOCIATED SKIN DAMAGE. RECOMMEND CONTINUE PRESENT TREATMENT. PT IS NOW ABLE TO ASSIST WITH TURNING AND REPOSITIONING BUT DOES DESATURATE WHEN TURNING. DISCUSSED SKIN CARE AND PROTECTION WITH NURSING STAFF. IN AGREEMENT WITH PLAN OF CARE. PT IS ON [facility] LOW AIRLOSS BED. Addendum: 05/05/20 at 0756 by BRUCE MÉNDEZ WNDNU Amended: Links added.
[2020-05-05 08:52] LABS: ABG BASE EXCESS 3.4 mmol/L; ABG OXYGEN SATURATION 88.1 % (92.0-98.5); ABG PCO2 46.3 mmHg (35.0-45.0); AaDO2 611.7 mmHg; COHb 1.4 % (0.5-1.5); O2Hb 86.9 % (94.0-97.0); SITE, ABG Right Radial; VENT MODE, BG HFNC 40L 100% +NRB
[2020-05-05] MEDS: ASPIRIN 81 MG TAB.CHEW PO SCH (09:34)
[2020-05-05] MEDS: CARVEDILOL 12.5 MG TABLET PO SCH ×2 (09:36→16:27)
[2020-05-05] MEDS: FINASTERIDE (5 MG) 5 MG TABLET PO SCH (09:36)
[2020-05-05] MEDS: TAMSULOSIN 0.4 MG CAP.SR.24H PO SCH (09:36)
[2020-05-05] MEDS: ENOXAPARIN SODIUM 40 MG/0.4 ML DISP.SYRIN SQ SCH (09:37)
[2020-05-05] MEDS: DEXAMETHASONE SOD PHOSPHATE 4 MG/ML VIAL IV SCH (09:38)
[2020-05-05] MEDS: BLOOD SUGAR DIAGNOSTIC 1 EACH STRIP VI SCH ×4 (09:38→21:27)
[2020-05-05] MEDS: CLOTRIMAZOLE 1% 15 GM TUBE TP SCH ×2 (09:39→16:28)
[2020-05-05] MEDS: Z GUARD REMEDY 2 OZ OINT TP SCH (09:40)
[2020-05-05] MEDS: AMLODIPINE BESYLATE 2.5 MG TABLET PO SCH (09:48)
[2020-05-05] MEDS: PANTOPRAZOLE 40 MG TABLET.DR PO SCH (09:48)
[2020-05-05] MEDS: INSULIN REGULAR, HUMAN 100 UNIT/ML 3 ML VIAL SQ PRN ×2 (13:46→17:25)
--- NOTE | 2020-05-05 19:30 | NUR ---
CERTIFIED SCRUM MASTER OPENING NOTES: Rec't pt in bed, awake A&Ox4. On high flow 40LPM at 100% and nonrebreather mask at 15LPM, tolerating well. No resp distress noted at this time. SR On tele monitor. JUMA midline patent and flushed. Dressing c/d/i. Urinal at bedside. Safety measures in place. Will continue to monitor.
[2020-05-05] MEDS: SIMVASTATIN 10 MG TABLET PO SCH (21:22)
[2020-05-05] MEDS: LATANOPROST EYE DROP 0.005% 2.5 ML BOTTLE EACHEYE SCH (21:26)
[2020-05-05] MEDS: *INSULIN REGULAR(HUMULIN R)HUM 100 UNIT/ML VIAL SQ PRN (21:31)
--- NOTE | 2020-05-05 23:24 | NUR ---
TEACHER TUTOR NOTE: Pt refused bed bath/linen change tonight.
[2020-05-06] VITALS (25 sets, daily range): BP systolic 95–188; BP diastolic 53–101
[2020-05-06] MEDS: GUAIFENESIN/CODEINE 10 ML UDC PO PRN ×3 (06:41→21:00)
[2020-05-06] MEDS: DEXAMETHASONE SOD PHOSPHATE 4 MG/ML VIAL IV SCH (09:22)
[2020-05-06] MEDS: PANTOPRAZOLE 40 MG TABLET.DR PO SCH (09:22)
[2020-05-06] MEDS: TAMSULOSIN 0.4 MG CAP.SR.24H PO SCH (09:23)
[2020-05-06] MEDS: FINASTERIDE (5 MG) 5 MG TABLET PO SCH (09:23)
[2020-05-06] MEDS: AMLODIPINE BESYLATE 2.5 MG TABLET PO SCH (09:23)
[2020-05-06] MEDS: ASPIRIN 81 MG TAB.CHEW PO SCH (09:23)
[2020-05-06] MEDS: ENOXAPARIN SODIUM 40 MG/0.4 ML DISP.SYRIN SQ SCH (09:24)
[2020-05-06] MEDS: CARVEDILOL 12.5 MG TABLET PO SCH ×2 (09:24→18:14)
[2020-05-06] MEDS: CLOTRIMAZOLE 1% 15 GM TUBE TP SCH ×2 (09:25→18:14)
[2020-05-06] MEDS: BLOOD SUGAR DIAGNOSTIC 1 EACH STRIP VI SCH ×4 (09:25→21:28)
[2020-05-06] MEDS: Z GUARD REMEDY 2 OZ OINT TP SCH (09:26)
[2020-05-06] MEDS: INSULIN REGULAR, HUMAN 100 UNIT/ML 3 ML VIAL SQ PRN ×2 (14:02→19:03)
[2020-05-06 15:43] LABS: ABG BASE EXCESS 3.2 mmol/L; ABG OXYGEN SATURATION 76.3 % (92.0-98.5); ABG PCO2 47.2 mmHg (35.0-45.0); ABG PH 7.402 (7.350-7.450); ABG PO2 42.4 mmHg (75.0-100.0); AaDO2 623.4 mmHg; COHb 1.2 % (0.5-1.5); MetHb 0.4 % (0.0-1.5); O2Hb 75.1 % (94.0-97.0); SITE, ABG Right Radial; VENT MODE, BG HIGH FLOW NASAL CANNU LA
[2020-05-06 17:29] LABS: ABG BASE EXCESS 3.5 mmol/L; ABG OXYGEN SATURATION 93.3 % (92.0-98.5); ABG PCO2 43.6 mmHg (35.0-45.0); ABG PO2 64.8 mmHg (75.0-100.0); AaDO2 604.6 mmHg; MetHb 0.1 % (0.0-1.5); O2Hb 92.3 % (94.0-97.0); SITE, ABG Left Radial
[2020-05-06 17:36] LABS: VENT MODE, BG HFNC 40 L/100%+NRB 15 L
--- NOTE | 2020-05-06 19:05 | NUR ---
RECEIVED PATIENT IN BED, AWAKE A/OX4 BREATHING EVEN AND UNLABORED,ABLE TO VERBALIZED NEEDS ON NON - REBREATHER MASK 15L AND HIGH FLOW NC, 40L, 100%FIO2, SPO2 IS 94-96%, , NORMAL SINUS RHYTHM ON TELE-MONITOR WITH HR 60-80S, IV LINES PATENT ,INTACT AND FLUSHED , SAFETY MEASURES IN PLACE, CALL LIGHT IN REACH, HOB ELEVATED, WILL CONT TO MONITOR .
[2020-05-06] MEDS ORDERED: Z GUARD REMEDY 4 OZ OINT TP ONE (20:34)
[2020-05-06] MEDS: SIMVASTATIN 10 MG TABLET PO SCH (21:00)
[2020-05-06] MEDS: LATANOPROST EYE DROP 0.005% 2.5 ML BOTTLE EACHEYE SCH (21:00)
[2020-05-06] MEDS: Z GUARD REMEDY 2 OZ OINT TP PRN (21:03)
[2020-05-06] MEDS: *INSULIN REGULAR(HUMULIN R)HUM 100 UNIT/ML VIAL SQ PRN (21:29)
[2020-05-07] VITALS (25 sets, daily range): BP systolic 85–161; BP diastolic 47–90
--- NOTE | 2020-05-07 01:00 | NUR ---
PT ON BED ASLEEP EASY TO WAKE UP STILL ON 15L NON REBREATHER MASK AND HIGH FLOW 60L 100% FIO2 SPO2 92% NO SIGN OF ANY DISTRESS NO PAIN COMPLAINTS WILL CONT TO MONITOR
[2020-05-07] MEDS: GUAIFENESIN/CODEINE 10 ML UDC PO PRN ×3 (04:22→19:50)
[2020-05-07 04:45] LABS: BASOPHILS % (AUTO) 0.4 % (0.0-2.0); EOSINOPHILS % (AUTO) 2.6 % (0.0-6.0); HEMATOCRIT 38 % (39-51); LYMPHOCYTES # (AUTO) 0.9 /CMM (0.8-4.8); LYMPHOCYTES % (AUTO) 23.7 % (20.0-44.0); MEAN CORPUSCULAR HGB CONC 32 g/dl (31.0-36.0); MEAN CORPUSCULAR VOLUME 82 fL (80-96); MONOCYTES # (AUTO) 0.2 /CMM (0.1-1.30); NEUTROPHILS # (AUTO) 2.4 /CMM (1.8-8.9); NEUTROPHILS % (AUTO) 67.3 % (43.0-81.0); PLATELET COUNT (AUTO) 154 /CMM (150-450); RED BLOOD CELL COUNT(AUTO) 4.55 MIL/uL (4.5-6.0); WHITE BLOOD COUNT (AUTO) 3.6 K/uL (4.3-11.0)
[2020-05-07 05:05] LABS: CALCIUM, SERUM 8.4 mg/dL (8.5-10.1); CREATININE 0.8 mg/dL (0.6-1.3)
[2020-05-07 05:56] LABS: C-REACTIVE PROTEIN 2.9 mg/dL (0.0-0.9)
--- NOTE | 2020-05-07 06:54 | NUR ---
PT ON BED ASLEEP STILL ON HIGH FLOW 60L FIO2 100% AND NON REBREATHER MASK 15L SPO2 98% NO SIGN AND SYMPTOMS OF DISTRESS, BEDSIDE MONITOR READS SINUS RHYTHM 60'S NO SIGNIFICANT CHANGES ON CONDITION NOTED ALL NEEDS ATTENDED BED ON LOWEST POSITION AND LOCKED SIDE RAILS UP X2 CALL LIGHT WITHIN REACH WILL CONT TO MONITOR THE PT
[2020-05-07 08:09] LABS: ABG BASE EXCESS 4.5 mmol/L; ABG OXYGEN SATURATION 94.1 % (92.0-98.5); ABG PH 7.394 (7.350-7.450); ABG PO2 73.3 mmHg (75.0-100.0); AaDO2 588.7 mmHg; COHb 1.2 % (0.5-1.5); MetHb 0.1 % (0.0-1.5); O2Hb 92.9 % (94.0-97.0); SITE, ABG Right Radial; VENT MODE, BG HFNC 40L 100% +NRB
[2020-05-07] MEDS: TAMSULOSIN 0.4 MG CAP.SR.24H PO SCH (09:46)
[2020-05-07] MEDS: FINASTERIDE (5 MG) 5 MG TABLET PO SCH (09:46)
[2020-05-07] MEDS: DEXAMETHASONE SOD PHOSPHATE 4 MG/ML VIAL IV SCH (09:46)
[2020-05-07] MEDS: ASPIRIN 81 MG TAB.CHEW PO SCH (09:46)
[2020-05-07] MEDS: CARVEDILOL 12.5 MG TABLET PO SCH ×2 (09:47→18:21)
[2020-05-07] MEDS: BLOOD SUGAR DIAGNOSTIC 1 EACH STRIP VI SCH ×4 (09:48→21:35)
[2020-05-07] MEDS: AMLODIPINE BESYLATE 2.5 MG TABLET PO SCH (09:48)
[2020-05-07] MEDS: ENOXAPARIN SODIUM 40 MG/0.4 ML DISP.SYRIN SQ SCH (09:50)
[2020-05-07] MEDS: CLOTRIMAZOLE 1% 15 GM TUBE TP SCH ×2 (09:51→18:17)
[2020-05-07] MEDS: Z GUARD REMEDY 2 OZ OINT TP SCH (09:52)
[2020-05-07] MEDS: PANTOPRAZOLE 40 MG TABLET.DR PO SCH (10:00)
[2020-05-07 10:23] LABS: ABG BASE EXCESS 1.9 mmol/L; ABG OXYGEN SATURATION 80.5 % (92.0-98.5); ABG PCO2 45.1 mmHg (35.0-45.0); ABG PH 7.398 (7.350-7.450); ABG PO2 46.9 mmHg (75.0-100.0); COHb 1.1 % (0.5-1.5); MetHb 0.3 % (0.0-1.5); O2Hb 79.4 % (94.0-97.0); SITE, ABG Right Radial; VENT MODE, BG HFNC 40L 100%
[2020-05-07] MEDS: INSULIN REGULAR, HUMAN 100 UNIT/ML 3 ML VIAL SQ PRN ×2 (13:47→18:20)
--- NOTE | 2020-05-07 19:30 | NUR ---
ICU OPENING NOTES RECEIVED PATIENT IN BED RESTING COMFORTABLY IN NO S/SX OF ACUTE DISTRESS AT THIS TIME. NO SOB NOTED. PATIENT'S BREATHING IS EVEN AND UNLABORED. PATIENT IS ON 40L 100% VIA HIGH FLOW-NC AND 15L 100% VIA NRB MASK; TOLERATING WELL WITH O2 SAT @98% AT THE TIME OF RECEIVED. NOTED IV SITE ON R UA MIDLINE #18; PATENT, INTACT AND FLUSHING WELL; NO S/S OF INFECTION OR INFILTRATION. PATIENT IS ON REGULAR DIET; TOLERATES WELL. SAFETY MEASURES HAVE BEEN PROVIDED AND IMPLEMENTED. PATIENT BED ALARM IS ON. HEAD OF BED ELEVATED. BED IS LOCKED, IN LOWEST POSITION AND SIDE RAILS UP. CALL LIGHT WITHIN REACH OF THE PATIENT. APPLICABLE ISOLATION PRECAUTIONS IN PLACE. WILL CONTINUE TO MONITOR AND REASSESS FOR ANY CHANGES AND WILL CARRY OUT ANY ONGOING AND ACTIVE MD ORDER.
[2020-05-07] MEDS: SIMVASTATIN 10 MG TABLET PO SCH (21:09)
[2020-05-07] MEDS: LATANOPROST EYE DROP 0.005% 2.5 ML BOTTLE EACHEYE SCH (21:09)
[2020-05-07] MEDS: *INSULIN REGULAR(HUMULIN R)HUM 100 UNIT/ML VIAL SQ PRN (21:36)
--- NOTE | 2020-05-07 23:00 | NUR ---
RN NOTES PATIENT REMAINS IN NO ACUTE RESPIRATORY DISTRESS AT THIS TIME, NO CHANGES TO CONDITION/STATUS. WILL CONTINUE TO MONITOR AND REASSESS FOR ANY CHANGES THROUGHOUT THE SHIFT
[2020-05-08] VITALS (20 sets, daily range): BP systolic 91–145; BP diastolic 48–94
--- NOTE | 2020-05-08 01:36 | NUR ---
RN NOTES PATIENT'S FAMILY CALLED TO GET UPDATES. SPOKE WITH (MAURICIO), PROVIDED GENERAL UPDATES ABOUT PT'S CONDITION. ALSO ADVISED THAT MD ALREADY ORDERED FOR PT TO BE TRANSFERRED TO TELE BUT WILL STAY IN ICU IN THE NEXT 24 HOURS FOR FURTHER MONITORING. ADVISED PT'S RELATIVE TO CALLBACK IN THE MORNING TO CHECK IF PT ALREADY BEEN TRANSFERRED TO TELE AND TO CHECK WHICH ROOM. ASSURED PATIENT RELATIVE THAT WILL KEEP THEM POSTED FOR ANY SUDDEN CHANGES TO PT'S CONDITION. FAMILY VERY THANKFUL ABOUT CARE BEING PROVIDED TO THE PATIENT. RN ACKNOWLEDGED.
--- NOTE | 2020-05-08 03:00 | NUR ---
RN NOTES NO CHANGES IN PATIENT CONDITION AT THIS TIME PATIENT VITALS STABLE, NO SIGNS OF ACUTE RESPIRATORY DISTRESS. PATIENT STILL IN BED COMFORTABLY RESTING. NO COMPLAINTS OF PAIN OR ANY DISCOMFORT AT THIS TIME. WILL CONTINUE TO MONITOR AND REASSESS FOR ANY CHANGES THROUGHOUT THE SHIFT.
[2020-05-08] MEDS: GUAIFENESIN/CODEINE 10 ML UDC PO PRN ×4 (06:36→23:00)
--- NOTE | 2020-05-08 06:49 | NUR ---
RN CLOSING NOTE: PATIENT REMAINS IN ROOM IN NO SIGNS OF RESPIRATORY DISTRESS, PATIENT STILL ON 40L 100% O2 VIA HIGH FLOW NC AND 15L 100% 02 VIA NRB MASK; TOLERATTING WELL SATURATING @ >95% SP02. SAFETY MEASURES IMPLEMENTED, BED IN LOWEST POSITION, LOCKED, SIDE RAILS UP, CALL LIGHT WITHIN REACH. ALL NEEDS AND ORDERS ADDRESSED DURING THE SHIFT. IV ACCESS MAINTAINED INTACT, SECURED AND FLUSHING WELL. ALL DUE MEDS GIVEN ORDERED & SCHEDULED ; PATIENT TOLERATED WELL. PATIENT KEPT CLEAN AND COMFORTABLE WITHIN THE SHIFT. PATIENT ENDORSED TO INCOMING SHIFT RN WITH STABLE VITAL SIGN,FOR CONTINUITY OF CARE, FOR POSSIBLE TRANSFER TO TELE FLOOR WITHIN MORNING SHIFT.
[2020-05-08] MEDS: FINASTERIDE (5 MG) 5 MG TABLET PO SCH (09:23)
[2020-05-08] MEDS: DEXAMETHASONE SOD PHOSPHATE 4 MG/ML VIAL IV SCH (09:23)
[2020-05-08] MEDS: ASPIRIN 81 MG TAB.CHEW PO SCH (09:23)
[2020-05-08] MEDS: TAMSULOSIN 0.4 MG CAP.SR.24H PO SCH (09:23)
[2020-05-08] MEDS: CARVEDILOL 12.5 MG TABLET PO SCH ×2 (09:24→18:04)
[2020-05-08] MEDS: AMLODIPINE BESYLATE 2.5 MG TABLET PO SCH (09:24)
[2020-05-08] MEDS: ENOXAPARIN SODIUM 40 MG/0.4 ML DISP.SYRIN SQ SCH (09:26)
[2020-05-08] MEDS: Z GUARD REMEDY 2 OZ OINT TP SCH (09:27)
[2020-05-08] MEDS: BLOOD SUGAR DIAGNOSTIC 1 EACH STRIP VI SCH ×4 (09:27→21:20)
[2020-05-08] MEDS: CLOTRIMAZOLE 1% 15 GM TUBE TP SCH ×2 (09:28→17:00)
[2020-05-08] MEDS: PANTOPRAZOLE 40 MG TABLET.DR PO SCH (09:30)
[2020-05-08 11:58] LABS: ABG BASE EXCESS 6.2 mmol/L; ABG OXYGEN SATURATION 89.9 % (92.0-98.5); ABG PH 7.416 (7.350-7.450); ABG PO2 58.4 mmHg (75.0-100.0); AaDO2 603.6 mmHg; COHb 1.1 % (0.5-1.5); MetHb 0.2 % (0.0-1.5); O2Hb 88.7 % (94.0-97.0); SITE, ABG Left Radial; VENT MODE, BG HFNC 100%
[2020-05-08] MEDS: INSULIN REGULAR, HUMAN 100 UNIT/ML 3 ML VIAL SQ PRN ×2 (13:53→18:15)
[2020-05-08] MEDS ORDERED: BISACODYL (5 MG) 5 MG TABLET.DR PO ONE (15:30)
[2020-05-08] MEDS ORDERED: BISACODYL (5 MG) 5 MG TABLET.DR PO STA (17:49)
--- NOTE | 2020-05-08 18:43 | NUR ---
PATIENT RECEIVED FROM ICU ON HIGH FLOW AND NON-REBREATHER. VITALS HR 73, RR 20, O2 SAT 92%, BP 119/61. PATIENT ORIENTED TO ROOM AND CALL LIGHT. ALL SAFETY MEASURES IN PLACE. PT HAS JUMA MIDLINE INTACT AND IN PLACE, NO SIGNS OF INFECTION OR INFILTRATION. WILL ENDORSE ALL NEEDS TO ONCOMING RN.
--- NOTE | 2020-05-08 19:26 | NUR ---
RN NOTE RECEIVED PT AWAKE AND ALERT IN BED WITH HEAD OF BED ELEVATED. PT IS CURRENTLY ON 15L NON REBREATHER AND HI FLOW NASAL CANNULA 100% FIO2 AND 40L. O2 SATURATION WNL WHILE ON CONTINUOUS PULSE OXIMETRY, PT DENIES PAIN OR DISCOMFORT, ASSISTED PT WITH USE OF BED DASH (PT HAD 1 LARGE BOWEL MOVEMENT), JESSICA CARE RENDERED, RIGHT UPPER ARM MIDLINE PATENT AND INTACT. URINAL AT BEDSIDE, PLAN OF CARE DISCUSSED, CALL LIGHT WITHIN REACH, SAFETY MEASURES IN PLACE PER PROTOCOL, BED ALARM ON, BED LOCKED AND IN LOW POSITION, SIDE RAILS UP X 2, WILL MONITOR PT AND CARRY OUT ACTIVE MD ORDERS.
--- NOTE | 2020-05-08 20:00 | NUR ---
RN NOTE PT REFUSED TO HAVE MIDLINE DRESSING CHANGED AT THIS TIME. EXPLANATION OF RISKS VS ADVANTAGES GIVEN.
[2020-05-08] MEDS: SIMVASTATIN 10 MG TABLET PO SCH (21:20)
[2020-05-08] MEDS: LATANOPROST EYE DROP 0.005% 2.5 ML BOTTLE EACHEYE SCH (21:20)
[2020-05-08] MEDS: *INSULIN REGULAR(HUMULIN R)HUM 100 UNIT/ML VIAL SQ PRN (21:21)
[2020-05-09] VITALS: BP 115/64
[2020-05-09 04:00] VITALS: BP 141/72
--- NOTE | 2020-05-09 04:00 | NUR ---
RN NOTE PT REFUSED BED BATH BUT ALLOWED FOR PARTIAL LINEN AND GOWN CHANGE.
--- NOTE | 2020-05-09 06:30 | NUR ---
RN NOTE PT AWAKE AND ALERT WITH HEAD OF BED ELEVATED. REMAINS ON 15L NON REBREATHER AND HI FLOW NASAL CANULA 40L AND 100% FIO2%, IN NO APPARENT DISTRESS. ABLE TO MAKE NEEDS KNOWN, CALL LIGHT WITHIN REACH, ALL NEEDS MET AND ATTENDED TO.
--- NOTE | 2020-05-09 07:30 | NUR ---
RN NOTE RECEIVED PT AWAKE AND ALERT IN BED WITH HEAD OF BED ELEVATED. PT IS CURRENTLY ON 15L NON REBREATHER AND HI FLOW NASAL CANNULA 100% FIO2 AND 40L. O2 SATURATION WNL WHILE ON CONTINUOUS PULSE OXIMETRY, PT DENIES PAIN OR DISCOMFORT, RIGHT UPPER ARM MIDLINE PATENT AND INTACT. BLOOD SUGAR CHECKED, WNL, NO INSULIN COVERAGE NEEDED. URINAL AT BEDSIDE, PLAN OF CARE DISCUSSED, CALL LIGHT WITHIN REACH, SAFETY MEASURES IN PLACE PER PROTOCOL, BED ALARM ON, BED LOCKED AND IN LOW POSITION, SIDE RAILS UP X 2, WILL CONTINUE TO MONITOR PATIENT AND PROVIDE TREATMENT.
[2020-05-09 08:00] VITALS: BP 133/75
[2020-05-09] MEDS: ASPIRIN 81 MG TAB.CHEW PO SCH (08:13)
[2020-05-09] MEDS: PANTOPRAZOLE 40 MG TABLET.DR PO SCH (08:13)
[2020-05-09] MEDS: DEXAMETHASONE SOD PHOSPHATE 4 MG/ML VIAL IV SCH (08:13)
[2020-05-09] MEDS: BLOOD SUGAR DIAGNOSTIC 1 EACH STRIP VI SCH ×4 (08:13→21:40)
[2020-05-09] MEDS: CARVEDILOL 12.5 MG TABLET PO SCH ×2 (08:14→17:19)
[2020-05-09] MEDS: AMLODIPINE BESYLATE 2.5 MG TABLET PO SCH (08:14)
[2020-05-09] MEDS: TAMSULOSIN 0.4 MG CAP.SR.24H PO SCH (08:14)
[2020-05-09] MEDS: FINASTERIDE (5 MG) 5 MG TABLET PO SCH (08:14)
[2020-05-09] MEDS: CLOTRIMAZOLE 1% 15 GM TUBE TP SCH ×2 (08:15→17:19)
[2020-05-09] MEDS: Z GUARD REMEDY 2 OZ OINT TP SCH (08:15)
[2020-05-09] MEDS: ENOXAPARIN SODIUM 40 MG/0.4 ML DISP.SYRIN SQ SCH (08:16)
--- NOTE | 2020-05-09 10:02 | NUR ---
BLADDER SCAN BLADDER SCANDONE, 136ML RESIDUAL NOTED. INFORMED.
[2020-05-09 12:00] VITALS: BP 106/68
[2020-05-09] MEDS: INSULIN REGULAR, HUMAN 100 UNIT/ML 3 ML VIAL SQ PRN ×2 (12:33→17:16)
[2020-05-09] MEDS: GUAIFENESIN/CODEINE 10 ML UDC PO PRN ×3 (14:12→23:23)
[2020-05-09 16:00] VITALS: BP 120/69
--- NOTE | 2020-05-09 19:25 | NUR ---
RN NOTE RECEIVED PT AWAKE AND ALERT/ORIENTED X 4. PT ON 15L NON REBREATHER AND HI FLOW 40L 100 %. RESPIRATIONS CURRENTLY UNLABORED. 100% O2 SATURATION VIA PULSE OXIMETRY, PT DENIES PAIN OR DISCOMFORT. NSR ON THE BRUSHER AND SHEARER. PLAN OF CARE DISCUSSED, CALL LIGHT WITHIN REACH, SAFETY MEASURES IN PLACE PER PROTOCOL, BED ALARM ON, BED LOCKED AND IN LOW POSITION, SIDE RAILS UP, WILL MONITOR PATIENT AND CARRY OUT ACTIVE MD ORDERS
[2020-05-09 20:00] VITALS: BP 130/61
--- NOTE | 2020-05-09 20:00 | NUR ---
RN NOTE OFFERED TO CHANGE MIDLINE DRESSING BUT PT REFUSED.
[2020-05-09] MEDS: *INSULIN REGULAR(HUMULIN R)HUM 100 UNIT/ML VIAL SQ PRN (21:28)
[2020-05-09] MEDS: SIMVASTATIN 10 MG TABLET PO SCH (21:28)
[2020-05-09] MEDS: LATANOPROST EYE DROP 0.005% 2.5 ML BOTTLE EACHEYE SCH (21:28)
--- NOTE | 2020-05-09 22:00 | NUR ---
RN NOTE SPOKE TO MAURICIO (DAUGHTER) AND GAVE UPDATE ON PT'S STATUS AND PLAN OF CARE.
[2020-05-10] VITALS: BP 128/59
[2020-05-10 04:00] VITALS: BP 133/73
--- NOTE | 2020-05-10 04:00 | NUR ---
RN NOTE OFFERED PT BED BATH AND COMPLETE LINEN CHANGE BUT PT REFUSED STATING THAT IT WAS ALREADY DONE YESTERDAY IN THE MORNING SHIFT.
--- NOTE | 2020-05-10 06:43 | NUR ---
RN NOTE PT AWAKE AND ALERT IN BED IN HIGH LIZ'S POSITION. ASSISTED PT IN REPOSITIONING FOR COMFORT. REMAINS ON NON REBREATHER MASK 15L AND HI FLOW NASAL CANNULA 100% FIO2 AND 40L. IN NO APPARENT DISTRESS. ORAL CARE DONE, PT REFUSED PARTIAL BED BATH AND LINEN CHANGE AT THIS TIME, ALL OTHER NEEDS MET AND ATTENDED TO, CALL LIGHT WITHIN REACH.
[2020-05-10 06:56] LABS: BASOPHILS % (AUTO) 0.4 % (0.0-2.0); HEMATOCRIT 38 % (39-51); HEMOGLOBIN 12.1 g/dL (13.5-17.5); LYMPHOCYTES % (AUTO) 23.9 % (20.0-44.0); MEAN CORPUSCULAR HGB CONC 32 g/dl (31.0-36.0); MEAN CORPUSCULAR VOLUME 82 fL (80-96); MONOCYTES # (AUTO) 0.3 /CMM (0.1-1.30); NEUTROPHILS # (AUTO) 2.9 /CMM (1.8-8.9); NEUTROPHILS % (AUTO) 67.7 % (43.0-81.0); PLATELET COUNT (AUTO) 170 /CMM (150-450); RED BLOOD CELL COUNT(AUTO) 4.57 MIL/uL (4.5-6.0); WHITE BLOOD COUNT (AUTO) 4.4 K/uL (4.3-11.0)
[2020-05-10 07:17] LABS: CALCIUM, SERUM 8.2 mg/dL (8.5-10.1); CREATININE 0.7 mg/dL (0.6-1.3); POTASSIUM 3.7 mmol/L (3.5-5.1)
[2020-05-10 07:48] LABS: PROSTATE SPECIFIC ANTIGEN SCR 0.97 ng/mL (0.00-4.00)
--- NOTE | 2020-05-10 07:48 | NUR ---
RN OPENING NOTE PATIENT IS IN BED RESTING. PATIENT IS IN NO ACUTE DISTRESS. PATIENT IS ON HIGH-FLOW 40L 100% FI02 NON REBREATHER 15L. TOLERATING WELL. NO SOB NOTED. PATIENT IS ON TELE MONITOR READING SR 69. SAFETY PRECAUTIONS ARE ON. BED IN THE LOWEST POSITION. SIDE RAILS ARE UP, CALL LIGHT WITHIN. WILL CONTINUE TO MONITOR CLOSELY THROUGHOUT THE SHIFT.
[2020-05-10 08:00] VITALS: BP 131/66
--- NOTE | 2020-05-10 08:00 | NUR ---
RT NOTE PT RECEIVED ON HFNC 40L 100% AND NRB MASK. PT WAS TAKEN OF NRB MASK AT 0750 , BUT WAS ONLY ABLE TO TOLERATE TEN MIN BEFORE O2 SATURATION SLOWLY DROPPED TO 82% THEN PLACED BACK ON NRB MASK.
[2020-05-10] MEDS: BLOOD SUGAR DIAGNOSTIC 1 EACH STRIP VI SCH ×4 (08:02→21:43)
[2020-05-10] MEDS: ASPIRIN 81 MG TAB.CHEW PO SCH (08:30)
[2020-05-10] MEDS: TAMSULOSIN 0.4 MG CAP.SR.24H PO SCH (08:30)
[2020-05-10] MEDS: CARVEDILOL 12.5 MG TABLET PO SCH ×2 (08:31→17:21)
[2020-05-10] MEDS: PANTOPRAZOLE 40 MG TABLET.DR PO SCH (08:31)
[2020-05-10] MEDS: DEXAMETHASONE SOD PHOSPHATE 4 MG/ML VIAL IV SCH (08:31)
[2020-05-10] MEDS: AMLODIPINE BESYLATE 2.5 MG TABLET PO SCH (08:31)
[2020-05-10] MEDS: ENOXAPARIN SODIUM 40 MG/0.4 ML DISP.SYRIN SQ SCH (08:33)
[2020-05-10] MEDS: FINASTERIDE (5 MG) 5 MG TABLET PO SCH (08:50)
[2020-05-10] MEDS: CLOTRIMAZOLE 1% 15 GM TUBE TP SCH ×2 (08:52→17:21)
[2020-05-10] MEDS: Z GUARD REMEDY 2 OZ OINT TP SCH (09:32)
--- NOTE | 2020-05-10 11:26 | NUR ---
RT NOTE PT WAS TAKEN OF NRB MASK AT 1105 , BUT WAS ONLY ABLE TO TOLERATE TEN MINUTES BEFORE O2 SATURATION SLOWLY DROPPED TO 84% . PT WAS PLACED BACK ON NRB MASK.
[2020-05-10 12:00] VITALS: BP 123/72
[2020-05-10] MEDS: INSULIN REGULAR, HUMAN 100 UNIT/ML 3 ML VIAL SQ PRN ×2 (12:38→17:23)
[2020-05-10] MEDS: GUAIFENESIN/CODEINE 10 ML UDC PO PRN ×2 (15:32→19:42)
[2020-05-10 16:00] VITALS: BP 111/53
--- NOTE | 2020-05-10 18:50 | NUR ---
RN CLOSING NOTE PATIENT IS IN BED RESTING. PATIENT IS IN NO ACUTE DISTRESS. PATIENT IS ON HIGH-FLOW 40L 100% FI02 NON REBREATHER 15L. TOLERATING WELL. NO SOB NOTED. PATIENT WAS NOT ABLE TO TOLERATE TITRATION DOWN OF THE OXYGEN, O2 KEPT DROPPING. PATIENT IS ON TELE MONITOR READING SR 87. SAFETY PRECAUTIONS ARE ON. BED IN THE LOWEST POSITION. SIDE RAILS ARE UP, CALL LIGHT WITHIN. ENDORSE PATIENT TO PORTFOLIO DIRECTOR NURSE FOR RAFI.
--- NOTE | 2020-05-10 19:05 | NUR ---
RN NOTES: RECEIVED AWAKE ON BED, WATCHING TV, A/OX4, ORIENTED TO UNIT AND STAFF, ON HI FLOW 40L, FiO2-100%,ON NON-REBREATHER 15L, TELE MONITOR SR-RATE-86, NON LABORED BREATHING,WITH ON AND OFF COUGH, JUMA MIDLINE, PATENT, CONTINENT BOTH BOWEL AND BLADDER, FALL,SAFETY AND ASPIRATION PRECAUTION OBSERVED. -PER ENDORSEMENT, RT TRIED TO WEAN OFF TODAY BUT PERIODS OF DESATURATION SPO2-85% UNABLE TO TITRATE O2 INHALATION.HE HAS PENDING WOUND CONSULT. -KEPT ON CLOSE WATCH.
--- NOTE | 2020-05-10 19:49 | NUR ---
RN NOTES: NOTED WITH ON AND OFF COUGH, REQUEST FOR HIS ROBITUSSIN PRN FOR COUGH, GIVEN.
[2020-05-10 20:00] VITALS: BP 119/59
[2020-05-10] MEDS: SIMVASTATIN 10 MG TABLET PO SCH (21:43)
[2020-05-10] MEDS: *INSULIN REGULAR(HUMULIN R)HUM 100 UNIT/ML VIAL SQ PRN (21:49)
[2020-05-10] MEDS: LATANOPROST EYE DROP 0.005% 2.5 ML BOTTLE EACHEYE SCH (21:55)
--- NOTE | 2020-05-10 21:58 | NUR ---
RN NOTES: BLOOD SUGAR CHECK-187, INSULIN GIVEN PER SCALE.WILL CONTINUE TO MONITOR FOR ANY SIGN OF HYPER/HYPOGLYCEMIA. VERY COOPERATIVE,ABLE TO SLEEP AT SHORT INTERVALS.
[2020-05-11] VITALS: BP 109/48
[2020-05-11] MEDS: GUAIFENESIN/CODEINE 10 ML UDC PO PRN ×3 (00:09→23:13)
--- NOTE | 2020-05-11 02:23 | NUR ---
RN NOTES: AROUND 0000, MORNING CARE DONE, SPONGE BATH RENDERED, CLEAN AND CHANGE, DRESSING DONE ON THE SACRAL AREA, HE EXPRESS HIS GRATITUDE TO STAFF FOR THE CARE RENDERED.BED LOW AND LOCKED, KEPT CALL LIGHT WITHIN EASY REACH.
[2020-05-11 04:00] VITALS: BP 136/56
--- NOTE | 2020-05-11 04:30 | NUR ---
RN NOTES: NOTED WITH ON AND OFF COUGH, REQUEST FOR HIS GUAIFENESIN/CODEINE, WITNESSED BY MESFIN/RN. SPO2-95%.
--- NOTE | 2020-05-11 06:53 | NUR ---
RN NOTES: CONTINUE ON ELECTRO OPTICAL ENGINEER SR-60, NO COMPLAINTS OF PAIN OR DISCOMFORT, ABLE TO SLEEP IN THE NIGHT, NEEDS ATTENDED, REPOSITIONING DONE, SPO2-95%, NO SOB, NO ALTERED IN MENTAL STATUS, ABLE TO MAKE NEEDS KNOWN, PLEASANT PERSONALITY,KEPT CALL LIGHT WITHIN EASY REACH.ENDORSED FOR CONTINUITY OF CARE.
--- NOTE | 2020-05-11 07:06 | NUR ---
RN NOTES: BLOOD SUGAR CHECKED-89.
[2020-05-11] MEDS: BLOOD SUGAR DIAGNOSTIC 1 EACH STRIP VI SCH ×4 (07:43→21:56)
[2020-05-11] MEDS: PANTOPRAZOLE 40 MG TABLET.DR PO SCH (07:43)
[2020-05-11 08:00] VITALS: BP 149/84
[2020-05-11] MEDS: DEXAMETHASONE SOD PHOSPHATE 4 MG/ML VIAL IV SCH (08:47)
[2020-05-11] MEDS: TAMSULOSIN 0.4 MG CAP.SR.24H PO SCH (08:47)
[2020-05-11] MEDS: ASPIRIN 81 MG TAB.CHEW PO SCH (08:48)
[2020-05-11] MEDS: CARVEDILOL 12.5 MG TABLET PO SCH ×2 (08:48→17:56)
[2020-05-11] MEDS: FINASTERIDE (5 MG) 5 MG TABLET PO SCH (08:48)
[2020-05-11] MEDS: AMLODIPINE BESYLATE 2.5 MG TABLET PO SCH (08:49)
[2020-05-11] MEDS: CLOTRIMAZOLE 1% 15 GM TUBE TP SCH ×2 (08:49→17:56)
[2020-05-11] MEDS: Z GUARD REMEDY 2 OZ OINT TP SCH (08:50)
[2020-05-11] MEDS: ENOXAPARIN SODIUM 40 MG/0.4 ML DISP.SYRIN SQ SCH (08:51)
[2020-05-11 12:00] VITALS: BP 101/52
[2020-05-11] MEDS: *INSULIN REGULAR(HUMULIN R)HUM 100 UNIT/ML VIAL SQ PRN ×2 (12:07→21:59)
[2020-05-11 16:00] VITALS: BP 109/64
[2020-05-11] MEDS: INSULIN REGULAR, HUMAN 100 UNIT/ML 3 ML VIAL SQ PRN (18:32)
--- NOTE | 2020-05-11 19:48 | NUR ---
RN NOTES PATIENT IN BED AWAKE, A/OX4. NO SOB OR ANY RESPIRATORY DISTRESS AT THIS TIME. ON HF 40L 100% FIO2 AND NON REBREATHER 15L, O2 SAT WNL. TELE MONITOR ON, SR. WITH JUMA MIDLINE PATENT AND INTACT. DENIES ANY PAIN OR DISCOMFORT. BED LOCKED AND IN LOWEST POSITION. SAFETY MEASURES IN PLACE. CALL LIGHT WITHIN REACH. WILL CONTINUE TO MONITOR.
[2020-05-11 20:00] VITALS: BP 100/57
[2020-05-11] MEDS: SIMVASTATIN 10 MG TABLET PO SCH (21:56)
[2020-05-11] MEDS: LATANOPROST EYE DROP 0.005% 2.5 ML BOTTLE EACHEYE SCH (22:04)
[2020-05-12] VITALS: BP 103/59
[2020-05-12 04:00] VITALS: BP 96/60
[2020-05-12] MEDS: GUAIFENESIN/CODEINE 10 ML UDC PO PRN ×3 (05:32→22:46)
[2020-05-12 06:54] LABS: BASOPHILS % (AUTO) 0.2 % (0.0-2.0); EOSINOPHILS % (AUTO) 0.9 % (0.0-6.0); HEMATOCRIT 38 % (39-51); HEMOGLOBIN 12.3 g/dL (13.5-17.5); LYMPHOCYTES % (AUTO) 20.5 % (20.0-44.0); MEAN CORPUSCULAR HGB CONC 32 g/dl (31.0-36.0); MEAN CORPUSCULAR VOLUME 83 fL (80-96); MONOCYTES # (AUTO) 0.3 /CMM (0.1-1.30); NEUTROPHILS # (AUTO) 3.7 /CMM (1.8-8.9); NEUTROPHILS % (AUTO) 73.4 % (43.0-81.0); PLATELET COUNT (AUTO) 147 /CMM (150-450)
--- NOTE | 2020-05-12 06:56 | NUR ---
RN NOTE PATIENT IN BED AWAKE, A/OX4. NO SOB OR ANY RESPIRATORY DISTRESS AT THIS TIME. ON HF 40L 100% FIO2 AND NON REBREATHER 15L, O2 SAT 100%. TELE MONITOR ON, SR. WITH JUMA MIDLINE PATENT AND INTACT. DENIES ANY PAIN OR DISCOMFORT. ALL NEEDS ATTENDED PROMPTLY. NO SIGNIFICANT CHANGES NOTED DURING SHIFT. BED LOCKED AND IN LOWEST POSITION. SAFETY MEASURES IN PLACE. CALL LIGHT WITHIN REACH. WILL ENDORSE TO ONCOMING SHIFT.
[2020-05-12 07:03] LABS: CALCIUM, SERUM 8.6 mg/dL (8.5-10.1); CREATININE 0.6 mg/dL (0.6-1.3); POTASSIUM 3.8 mmol/L (3.5-5.1)
[2020-05-12 07:08] LABS: C-REACTIVE PROTEIN 2.1 mg/dL (0.0-0.9)
--- NOTE | 2020-05-12 07:33 | NUR ---
RECEIVED PATIENT IN BED. NO ACUTE DISTRESS NOTED. PATIENT ALERT & ORIENTED X4. PATIENT ON HIFLOW, SATURATING WELL AT 96%. PATIENT ON RADIOLOGIC TECHNOLOGIST CHIEF, NSR NOTED WITH HR IN 60S. PATIENT JUMA MIDLINE IN PLACE, INTACT, PATENT. PATIENT SAFETY MEASURES MAINTAINED. CALL LIGHT WITHIN REACH. WILL CONTINUE TO MONITOR.
[2020-05-12 08:00] VITALS: BP 154/68
--- NOTE | 2020-05-12 08:09 | NUR ---
100% fio2 and 40 L flow high flow nasal cannula without Non-rebreather. Addendum: 05/12/20 at 0810 by JUAN C BLACKBURN RT Amended: Links added.
[2020-05-12] MEDS: ASPIRIN 81 MG TAB.CHEW PO SCH (08:27)
[2020-05-12] MEDS: PANTOPRAZOLE 40 MG TABLET.DR PO SCH (08:28)
[2020-05-12] MEDS: AMLODIPINE BESYLATE 2.5 MG TABLET PO SCH (08:28)
[2020-05-12] MEDS: CARVEDILOL 12.5 MG TABLET PO SCH ×2 (08:28→17:38)
[2020-05-12] MEDS: BLOOD SUGAR DIAGNOSTIC 1 EACH STRIP VI SCH ×4 (08:28→21:43)
[2020-05-12] MEDS: DEXAMETHASONE SOD PHOSPHATE 4 MG/ML VIAL IV SCH (08:29)
[2020-05-12] MEDS: CLOTRIMAZOLE 1% 15 GM TUBE TP SCH ×2 (08:29→17:38)
[2020-05-12] MEDS: FINASTERIDE (5 MG) 5 MG TABLET PO SCH (08:29)
[2020-05-12] MEDS: TAMSULOSIN 0.4 MG CAP.SR.24H PO SCH (08:29)
[2020-05-12] MEDS: Z GUARD REMEDY 2 OZ OINT TP SCH (08:30)
[2020-05-12] MEDS: ENOXAPARIN SODIUM 40 MG/0.4 ML DISP.SYRIN SQ SCH (08:30)
[2020-05-12 09:19] LABS: ABG BASE EXCESS 7.8 mmol/L; ABG OXYGEN SATURATION 74.3 % (92.0-98.5); ABG PCO2 54.6 mmHg (35.0-45.0); ABG PH 7.413 (7.350-7.450); ABG PO2 40.2 mmHg (75.0-100.0); AaDO2 618.2 mmHg; COHb 0.7 % (0.5-1.5); MetHb 0.5 % (0.0-1.5); O2Hb 73.4 % (94.0-97.0); SITE, ABG Right Radial; VENT MODE, BG high flow 40 L / 100%
--- NOTE | 2020-05-12 09:52 | NUR ---
WOUND CARE CONSULT/FOLLOW UP: PT CONTINUES TO HAVE MOISTURE ASSOCIATED SKIN DAMAGE TO GLUTEAL CREASE AREA. PT DEMONSTRATES ABILITY TO TURN AND REPOSITION AND EVEN PULLS HIMSELF UP IN BED. RECOMMEND CONTINUE PRESENT TREATMENT. DISCUSSED WITH NURSING STAFF. MD IN AGREEMENT WITH PLAN OF CARE. PT IS ON CHEVY ISOFLEX LOW AIRLOSS BED.
[2020-05-12] MEDS: *INSULIN REGULAR(HUMULIN R)HUM 100 UNIT/ML VIAL SQ PRN ×2 (11:35→21:50)
[2020-05-12 12:00] VITALS: BP 116/52
[2020-05-12 16:00] VITALS: BP 103/58
--- NOTE | 2020-05-12 18:46 | NUR ---
PATIENT IN BED. NO ACUTE DISTRESS NOTED. PATIENT ALERT & ORIENTED X4. PATIENT ON HIFLOW, SATURATING WELL AT 96%. PATIENT ON MUTUAL FUND ANALYST, NSR NOTED WITH HR IN 60S. PATIENT JUMA MIDLINE IN PLACE, INTACT, PATENT. PATIENT SAFETY MEASURES MAINTAINED. CALL LIGHT WITHIN REACH. WILL ENDORSE PLAN OF CARE TO ONCOMING SHIFT
--- NOTE | 2020-05-12 19:35 | NUR ---
RN OPENING NOTES RECEIVED PT IN BED. AWAKE. A/O X4. ON HF 40L FIO2 100% AND NONREBREATHER MASK 15L. PT TOLERATING WELL SPO2 96% AT THIS TIME. NO SOB OR RESP DISTRESS NOTED. PT ON TELE MONITORING PRESENTS WITH HEART RATE 68 BASELINE TO PT. IV SITE JUMA MIDLINE FLUSHED, DRESSING INTACT CLEAN AND DRY. PT DENIES PAIN AT THIS TIME. SAFETY MEASURES IN PLACE. HOB ELEVATED. SIDE RAILS UP X2. BED LOCKED IN LOWEST POSITION WITH BED ALARM ON. CALL LIGHT WITHIN REACH. WILL CONTINUE TO MONITOR CLOSELY.
[2020-05-12 20:00] VITALS: BP 135/72
[2020-05-12] MEDS: SIMVASTATIN 10 MG TABLET PO SCH (21:43)
[2020-05-12] MEDS: LATANOPROST EYE DROP 0.005% 2.5 ML BOTTLE EACHEYE SCH (21:43)
[2020-05-13] VITALS: BP 120/70
[2020-05-13] MEDS: GUAIFENESIN/CODEINE 10 ML UDC PO PRN ×4 (02:46→18:43)
[2020-05-13 04:00] VITALS: BP 123/59
--- NOTE | 2020-05-13 06:32 | NUR ---
RN CLOSING NOTES NO SIGNIFICANT CHANGE IN PT CONDITION. PT RESTED WELL. STILL REMAINS WITH HF 40L 1005 WITH NONREBREATHER 15L. TOLERATING WELL. O2 SAT 99%. PT IS AFEBRILE. ALL NEEDS ATTENDED. DENIES PAIN. ALL DUE MEDICATIONS GIVEN. SAFETY MEASURES IN PLACE. HOB ELEVATED. SIDE RAILS UP X2. BED LOCKED IN LOWEST POSITION WITH BED ALARM ON. CALL LIGHT WITHIN REACH. WILL ENDORSE TO AM NURSE FOR CONTINUATION OF CARE.
[2020-05-13] MEDS: BLOOD SUGAR DIAGNOSTIC 1 EACH STRIP VI SCH ×4 (06:46→21:22)
[2020-05-13] MEDS: PANTOPRAZOLE 40 MG TABLET.DR PO SCH (06:46)
[2020-05-13 08:00] VITALS: BP 123/59
--- NOTE | 2020-05-13 08:00 | NUR ---
DRUG COUNSELOR NOTES PATIENT IN BED , ALERT ORIENTED ,STILL REMAINS WITH HF 40L 100% WITH NONREBREATHER 15L. TOLERATING WELL. O2 SAT 96 %. PT IS. ALL NEEDS ATTENDED. DENIES PAIN. SAFETY MEASURES IN PLACE. HOB ELEVATED. SIDE RAILS UP X2. BED LOCKED IN LOWEST POSITION WITH BED ALARM ON. CALL LIGHT WITHIN REACH. WILL MONITOR, ON TELE MONITOR SR HR 89 RT UPPER ARM MID LINE IN PLACE AND FLUSHED WELL
[2020-05-13] MEDS: TAMSULOSIN 0.4 MG CAP.SR.24H PO SCH (09:07)
[2020-05-13] MEDS: FINASTERIDE (5 MG) 5 MG TABLET PO SCH (09:07)
[2020-05-13] MEDS: ENOXAPARIN SODIUM 40 MG/0.4 ML DISP.SYRIN SQ SCH (09:07)
[2020-05-13] MEDS: ASPIRIN 81 MG TAB.CHEW PO SCH (09:07)
[2020-05-13] MEDS: DEXAMETHASONE SOD PHOSPHATE 4 MG/ML VIAL IV SCH (09:08)
[2020-05-13] MEDS: AMLODIPINE BESYLATE 2.5 MG TABLET PO SCH (09:08)
[2020-05-13] MEDS: CARVEDILOL 12.5 MG TABLET PO SCH ×2 (09:08→16:17)
[2020-05-13] MEDS: CLOTRIMAZOLE 1% 15 GM TUBE TP SCH ×2 (09:11→16:17)
[2020-05-13] MEDS: Z GUARD REMEDY 2 OZ OINT TP SCH (09:12)
[2020-05-13 10:01] LABS: ABG BASE EXCESS 4.4 mmol/L; ABG OXYGEN SATURATION 91.4 % (92.0-98.5); ABG PCO2 54.9 mmHg (35.0-45.0); ABG PH 7.371 (7.350-7.450); ABG PO2 64.2 mmHg (75.0-100.0); AaDO2 593.9 mmHg; COHb 1.1 % (0.5-1.5); MetHb 0.3 % (0.0-1.5); O2Hb 90.1 % (94.0-97.0); SITE, ABG Left Brachial; VENT MODE, BG HFNC 40L/100% FIO2
--- NOTE | 2020-05-13 10:29 | NUR ---
GRAPHIC ART SALES REPRESENTATIVE NOTES PATIENT IN BED , ALERT ORIENTED ,STILL REMAINS WITH HF 40L 100% WITH NONREBREATHER 15L. TOLERATING WELL. O2 SAT 96 %. PT IS. ALL NEEDS ATTENDED. DENIES PAIN. SAFETY MEASURES IN PLACE. HOB ELEVATED. SIDE RAILS UP X2. BED LOCKED IN LOWEST POSITION WITH BED ALARM ON. CALL LIGHT WITHIN REACH. WILL MONITOR, ON TELE MONITOR SR HR 89 RT UPPER ARM MID LINE IN PLACE AND FLUSHED WELL
--- NOTE | 2020-05-13 10:37 | NUR ---
DIRECTOR DIGITAL SALES NOTE ABG DONE OK TO HAVE ONLY HIGH FLOW AT THIS TIME ,RESULT OF ABG GIVEN O DR CHILDERS BY RT
[2020-05-13 12:00] VITALS: BP 108/54
[2020-05-13] MEDS: INSULIN REGULAR, HUMAN 100 UNIT/ML 3 ML VIAL SQ PRN ×2 (12:41→17:16)
--- NOTE | 2020-05-13 12:49 | NUR ---
telegraph operator note c\o cough Robitussin po given also c\o sob saturation 56% placed back to nonrebreather mask rt at bedside
--- NOTE | 2020-05-13 13:56 | NUR ---
NIPPLE MAKER NOTE PER DR BRANHAM OK TO GIVE DULCOLAX, PATIENT C\O CONSTIPATION ,KEEP CLEAN DRY, CALL LIGHT WITHIN REACH ,WILL CONT TO MONITOR , REFUSED TO BE CLEAN AND CHANGE LINENS STATED I AM OK AND CLEANED ,WILL F\U
[2020-05-13] MEDS ORDERED: BISACODYL (5 MG) 5 MG TABLET.DR PO PRN (14:00)
[2020-05-13 16:00] VITALS: BP 123/71
--- NOTE | 2020-05-13 18:45 | NUR ---
HALL PORTER NOTE ON HIGH FLOW AND NONREBREATHER AND ON AND OFF , HAVING DINNER AND C\O COUGH ROBITUSSIN PO GIVEN, SATURATION AT THIS TIME 93% DRESSING CHANGED FOR MID LINE, ALL NEEDS ATTENDED
--- NOTE | 2020-05-13 19:10 | NUR ---
RECEIVED PATIENT IN BED, AWAKE AND EATING DINNER A/OX4 BREATHING EVEN AND UNLABORED,ABLE TO VERBALIZED NEEDS ON NON - REBREATHER MASK 15L AND HIGH FLOW NC, 40L, 100%FIO2, SPO2 IS 92-94%, , NORMAL SINUS RHYTHM ON TELE-MONITOR WITH HR 60-80S, IV LINES PATENT ,INTACT AND FLUSHED , SAFETY MEASURES IN PLACE, CALL LIGHT IN REACH, HOB ELEVATED, WILL CONT TO MONITOR .
[2020-05-13 20:00] VITALS: BP 108/52
[2020-05-13] MEDS: SIMVASTATIN 10 MG TABLET PO SCH (21:15)
[2020-05-13] MEDS: LATANOPROST EYE DROP 0.005% 2.5 ML BOTTLE EACHEYE SCH (21:16)
[2020-05-13] MEDS: *INSULIN REGULAR(HUMULIN R)HUM 100 UNIT/ML VIAL SQ PRN (21:23)
[2020-05-14] VITALS: BP 121/60
[2020-05-14] MEDS: GUAIFENESIN/CODEINE 10 ML UDC PO PRN ×2 (00:11→05:30)
[2020-05-14 04:00] VITALS: BP 118/61
[2020-05-14] MEDS: PHENYLEPHRINE/SHK LV/MO/PET,WH 30 GM TUBE RC PRN (06:11)
[2020-05-14] MEDS: Z GUARD REMEDY 2 OZ OINT TP PRN (06:12)
--- NOTE | 2020-05-14 07:07 | NUR ---
PT ON BED ASLEEP STILL ON HIGH FLOW 60L FIO2 80% AND NON REBREATHER MASK 15L NEEDED SPO2 95% NO SIGN AND SYMPTOMS OF DISTRESS, BEDSIDE MONITOR READS SINUS RHYTHM 60'S NO SIGNIFICANT CHANGES ON CONDITION NOTED ALL NEEDS ATTENDED BED ON LOWEST POSITION AND LOCKED SIDE RAILS UP X2 CALL LIGHT WITHIN REACH WILL CONT TO MONITOR THE PT
[2020-05-14 08:00] VITALS: BP 127/60
[2020-05-14] MEDS: BLOOD SUGAR DIAGNOSTIC 1 EACH STRIP VI SCH ×4 (09:07→21:36)
[2020-05-14] MEDS: INSULIN REGULAR, HUMAN 100 UNIT/ML 3 ML VIAL SQ PRN ×3 (09:08→17:42)
[2020-05-14] MEDS: PANTOPRAZOLE 40 MG TABLET.DR PO SCH (09:13)
[2020-05-14] MEDS: FINASTERIDE (5 MG) 5 MG TABLET PO SCH (09:14)
[2020-05-14] MEDS: CARVEDILOL 12.5 MG TABLET PO SCH ×2 (09:14→17:45)
[2020-05-14] MEDS: TAMSULOSIN 0.4 MG CAP.SR.24H PO SCH (09:14)
[2020-05-14] MEDS: AMLODIPINE BESYLATE 2.5 MG TABLET PO SCH (09:14)
[2020-05-14] MEDS: ASPIRIN 81 MG TAB.CHEW PO SCH (09:14)
[2020-05-14] MEDS: DEXAMETHASONE SOD PHOSPHATE 4 MG/ML VIAL IV SCH (09:14)
[2020-05-14] MEDS: Z GUARD REMEDY 2 OZ OINT TP SCH (09:16)
[2020-05-14] MEDS: ENOXAPARIN SODIUM 40 MG/0.4 ML DISP.SYRIN SQ SCH (09:16)
[2020-05-14] MEDS: CLOTRIMAZOLE 1% 15 GM TUBE TP SCH ×2 (09:17→17:46)
[2020-05-14] MEDS ORDERED: LORAZEPAM 0.5 MG TABLET PO PRN (10:30)
[2020-05-14 12:00] VITALS: BP 130/61
--- NOTE | 2020-05-14 13:00 | NUR ---
Patient c/o unable to void. Patient assessed and noted with discomfort when palpating for bladder. Unable to palpate bladder. Bladder scan done with [address] cc noted,. In[address] Brunner and received order for straight in and out and collect urine for culture. Order noted and carried out. Urine collected and sent to lab. patient noted with 500 cc of urine which was coty in color with no sediments.
[2020-05-14 13:56] LABS: BILIRUBIN,URINE NEGATIVE (NEGATIVE); COLOR,URINE YELLOW (YELLOW); LEUKOCYTE ESTERASE ,URINE NEGATIVE (NEGATIVE); NITRITE, URINE POSITIVE (NEGATIVE); PH,URINE 6.5 (5.0-8.0); PROTEIN,URINE NEGATIVE (NEGATIVE); UGLUCOSE NEGATIVE (NEGATIVE)
[2020-05-14 14:08] LABS: BACTERIA,URINE 2+ /HPF (None Seen); WBC,URINE 0-2 /HPF (0-3)
[2020-05-14 14:09] LABS: SQUAMOUS EPITHELIAL CELL,UR Few /HPF (None Seen)
[2020-05-14 16:00] VITALS: BP 121/62
--- NOTE | 2020-05-14 19:20 | NUR ---
RN CLOSING NOTES Patient currently in bed on NRB at 15liters and High flow 02 at 40 liter 80% FI02 WITH 02 SAT OF 94%. No c/o pain or discomfort. Patient kept clean and dry. IV line patent and intact.Bed is in lowest and locked position. Call light withi n reach.
[2020-05-14 20:00] VITALS: BP 129/68
[2020-05-14] MEDS: SIMVASTATIN 10 MG TABLET PO SCH (21:13)
[2020-05-14] MEDS: LATANOPROST EYE DROP 0.005% 2.5 ML BOTTLE EACHEYE SCH (21:14)
[2020-05-14] MEDS: *INSULIN REGULAR(HUMULIN R)HUM 100 UNIT/ML VIAL SQ PRN (21:37)
--- NOTE | 2020-05-14 23:00 | NUR ---
PT COMPLAINING THAT HE DIDNT URINATE SINCE LUNCH TIME AND PER THE AM SHIFT ENDORSEMENT THEY DO THE IN AND OUT CATHETERIZATION TO THE PT @ 1200 DUE TO SAME COMPLAINT, DO BLADDER SCAN TO THE PT WITH PVR OF 60ML SEEN ON BLADDER SCAN, BUT PT IS COMPLAINING ABOUT THE DISCOMFORT, INFORMED DR. CRUZ WITH ORDER TO INSERT VILLARREAL CATHETER NOTED AND CARRIED OUT
[2020-05-15] VITALS: BP 135/70
[2020-05-15 04:00] VITALS: BP 152/73
--- NOTE | 2020-05-15 07:30 | NUR ---
RETAIL PROPERTY MANAGER AM NOTES RECEIVED PT IN BED, AO X 4, ON HIGH FLOW 40L FIO2 80% AND NON REBREATHER MASK 15L, SPO2 94%, NO SIGN AND SYMPTOMS OF DISTRESS, SINUS RHYTHM HR 73, DENIES ANY DISCOMFORT, JUMA MIDLINE, FLUSHES WELL, SITE CLEAR, SEE NURSING FLOWSHEET FOR SKIN ISSUES, REGULAR DIET, DISCUSSED PLAN OF CARE, VERBALIZED UNDERSTANDING, BEDREST, VILLARREAL CATH IN PLACE, DRAINING TO YELLOW COLORED URINE, ADEQUATE AMOUNT. BED ON LOWEST POSITION AND LOCKED SIDE RAILS UP X2 CALL LIGHT WITHIN REACH WILL CONT TO MONITOR.
[2020-05-15 08:00] VITALS: BP 159/86
[2020-05-15] MEDS: PANTOPRAZOLE 40 MG TABLET.DR PO SCH (08:00)
[2020-05-15] MEDS: BLOOD SUGAR DIAGNOSTIC 1 EACH STRIP VI SCH ×4 (08:00→21:53)
[2020-05-15] MEDS: DEXAMETHASONE SOD PHOSPHATE 4 MG/ML VIAL IV SCH (08:31)
[2020-05-15] MEDS: AMLODIPINE BESYLATE 2.5 MG TABLET PO SCH (08:31)
[2020-05-15] MEDS: TAMSULOSIN 0.4 MG CAP.SR.24H PO SCH (08:31)
[2020-05-15] MEDS: ASPIRIN 81 MG TAB.CHEW PO SCH (08:31)
[2020-05-15] MEDS: FINASTERIDE (5 MG) 5 MG TABLET PO SCH (08:31)
[2020-05-15] MEDS: CARVEDILOL 12.5 MG TABLET PO SCH ×2 (08:32→16:22)
[2020-05-15] MEDS: ENOXAPARIN SODIUM 40 MG/0.4 ML DISP.SYRIN SQ SCH (08:36)
[2020-05-15] MEDS: CLOTRIMAZOLE 1% 15 GM TUBE TP SCH ×2 (08:39→16:22)
[2020-05-15] MEDS: Z GUARD REMEDY 2 OZ OINT TP SCH (08:39)
--- NOTE | 2020-05-15 09:30 | NUR ---
RN NOTES DUE MEDS GIVEN. PER DR. CHILDERS AND DR. CRUZ PATIENT NEEDS TO GET OUT OF BED
[2020-05-15 12:00] VITALS: BP 120/64
[2020-05-15] MEDS: LORAZEPAM 0.5 MG TABLET PO SCH ×2 (12:55→16:21)
[2020-05-15 16:00] VITALS: BP 116/75
[2020-05-15] MEDS: INSULIN REGULAR, HUMAN 100 UNIT/ML 3 ML VIAL SQ PRN (17:01)
--- NOTE | 2020-05-15 18:36 | NUR ---
GREETING CARD WRITER CLOSING NOTES PT RESTING IN BED, AO X 4, ON HIGH FLOW 40L FIO2 80% AND NON REBREATHER MASK 15L, SPO2 94%, NO SIGN AND SYMPTOMS OF DISTRESS, SINUS RHYTHM, DENIES ANY DISCOMFORT, JUMA MIDLINE, FLUSHES WELL, SITE CLEAR, REGULAR DIET, BEDREST, VILLARREAL CATH IN PLACE, DRAINING TO YELLOW COLORED URINE, 375 ML OUTPUT, BED ON LOWEST POSITION AND LOCKED SIDE RAILS UP X2 CALL LIGHT WITHIN REACH, ALL NEEDS MET, PM CARE DONE, NO OTHER SIGNIFICANT CHANGE IN CONDITION, WILL ENDORSE TO NEXT SHIFT FOR RAFI.
--- NOTE | 2020-05-15 19:30 | NUR ---
RN OPENING NOTES: RECEIVED PT A/OX4 IN BED SLEEPING COMFORTABLY. PATIENT IN NO S/SX OF ACUTE DISTRESS AT THIS TIME. NO SOB NOTED. PATIENT'S BREATHING IS EVEN AND UNLABORED. PATIENT IS ON 40L OF OXYGEN; 80% VIA HIGHFLOW NC AND 15L OF O2 VIA NRB MASKS PRN; TOLERATING WELL. PATIENT ON TELE MONITORING READING SINUS RHYTHM HR IS @90s AT THE TIME OF RECEIVED. PATIENT ON REGULAR DIET; TOLERATES WELL. NOTED IV SITE ON R UA MIDLINE#18; PATENT, INTACT AND FLUSHING WELL; NO S/S OF INFECTION OR INFILTRATION. VILLARREAL CATH IN PLACE, MODERATE URINE OUTPUT NOTED SAFETY MEASURES HAVE BEEN PROVIDED AND IMPLEMENTED. PATIENT BED ALARM IS ON. HEAD OF BED ELEVATED. BED IS LOCKED, IN LOWEST POSITION AND SIDE RAILS UP. CALL LIGHT WITHIN REACH OF THE PATIENT. APPLICABLE ISOLATION PRECAUTIONS IN PLACE. WILL CONTINUE TO MONITOR AND REASSESS FOR ANY CHANGES AND WILL CARRY OUT ANY ONGOING AND ACTIVE MD ORDER.
[2020-05-15 20:00] VITALS: BP 115/74
[2020-05-15] MEDS: LATANOPROST EYE DROP 0.005% 2.5 ML BOTTLE EACHEYE SCH (21:09)
[2020-05-15] MEDS: SIMVASTATIN 10 MG TABLET PO SCH (21:09)
[2020-05-15] MEDS: *INSULIN REGULAR(HUMULIN R)HUM 100 UNIT/ML VIAL SQ PRN (21:53)
--- NOTE | 2020-05-15 23:00 | NUR ---
RN NOTES PATIENT REMAINS IN NO ACUTE RESPIRATORY DISTRESS AT THIS TIME, NO CHANGES TO CONDITION/STATUS. BAKER PASTRY WELL AWARE. WILL CONTINUE TO MONITOR AND REASSESS FOR ANY CHANGES THROUGHOUT THE SHIFT
[2020-05-16] VITALS: BP 130/73
--- NOTE | 2020-05-16 03:45 | NUR ---
RN NOTES NOTED THAT PT'S O2 SAT GOES BELOW 88-85%AT THIS TIME, POSITIONING IN BED DONE, NRB MASK PRN PLACED ORDERED. O2 SAT WENT UP TO 92-94%. CISSP MADE AWARE. WILL CONTINUE WEANING MEASURES AND CONTINUE TO ASSESS AND MONITOR THROUGHOUT THE SHIFT.
[2020-05-16 04:00] VITALS: BP 137/72
--- NOTE | 2020-05-16 04:00 | NUR ---
RN NOTES PATIENT REFUSED MORING PATIENT CARE, RISK AND BENEFITS EXPLAIN BUT PT OPTED TO REST AND SLEEP. CORE OVEN TENDER MADE AWARE. WILL CONTINUE TO MONITOR, ASSESS AND PROVIDE COMFORT TO PATIENT.
--- NOTE | 2020-05-16 06:50 | NUR ---
RN CLOSING NOTE: PATIENT REMAINS IN ROOM RESTING COMFORTABLY.NO SIGNS OF RESPIRATORY DISTRESS PATIENT STILL HIGHFLOW 40% 80% FIO2 AND NRB MASK 15L PRN ON;TOLERATING WELL SATURATING @ >90% SP02.PATIENT IS CLEAN , DRY AND COMFORTABLE THROUGHOUT THE SHIFT. ALL DUE MEDS GIVEN ORDERED ; PATIENT TOLERATED WELL. SAFETY MEASURES IMPLEMENTED, BED IN LOWEST POSITION, LOCKED, SIDE RAILS UP, CALL LIGHT WITHIN REACH. PATIENT ENDORSED TO INCOMING SHIFT RN WITH STABLE VITAL SIGN AND FOR CONTINUITY OF CARE.
--- NOTE | 2020-05-16 07:55 | NUR ---
PT RECEIVED AWAKE/ALERT ON VAPOTHERM 40LPM @ 75% WITH 100% NONREBREATHER MASK. PT AWAKE/ALERT. NO DISTRESS NOTED AT THIS TIME. CONT. PULSE OX CONNECTED. WILL CONTINUE TO MONITOR CLOSELY. Addendum: 05/16/20 at 0756 by LISA GAINES RT Amended: Links added.
[2020-05-16 08:00] VITALS: BP 146/68
[2020-05-16] MEDS: BLOOD SUGAR DIAGNOSTIC 1 EACH STRIP VI SCH ×4 (08:04→21:52)
--- NOTE | 2020-05-16 08:04 | NUR ---
0730 ACCUCHECK ACCUCHECK DONE; BLOOD SUGAR 130. NO INSULIN PER SLIDING SCALE.
[2020-05-16] MEDS: LORAZEPAM 0.5 MG TABLET PO SCH ×2 (08:31→17:18)
[2020-05-16] MEDS: PANTOPRAZOLE 40 MG TABLET.DR PO SCH (08:32)
[2020-05-16] MEDS: ENOXAPARIN SODIUM 40 MG/0.4 ML DISP.SYRIN SQ SCH (08:32)
[2020-05-16] MEDS: ASPIRIN 81 MG TAB.CHEW PO SCH (08:32)
[2020-05-16] MEDS: FINASTERIDE (5 MG) 5 MG TABLET PO SCH (08:32)
[2020-05-16] MEDS: TAMSULOSIN 0.4 MG CAP.SR.24H PO SCH (08:32)
[2020-05-16] MEDS: CLOTRIMAZOLE 1% 15 GM TUBE TP SCH ×2 (08:33→17:19)
[2020-05-16] MEDS: Z GUARD REMEDY 2 OZ OINT TP SCH (08:33)
[2020-05-16] MEDS: DEXAMETHASONE SOD PHOSPHATE 4 MG/ML VIAL IV SCH (08:34)
[2020-05-16] MEDS: AMLODIPINE BESYLATE 2.5 MG TABLET PO SCH (08:35)
[2020-05-16] MEDS: CARVEDILOL 12.5 MG TABLET PO SCH ×2 (08:36→17:00)
[2020-05-16] MEDS ORDERED: DEXAMETHASONE SOD PHOSPHATE 4 MG/ML VIAL IV SCH (09:00)
--- NOTE | 2020-05-16 11:15 | NUR ---
RO RACHEL NOTE - O2 VAPOTHERM PATIENT SPO2 AT 92%. RT TITRATED PATIENTS HIGHFLOW TO 40 LPM / FIO2 70%; TOLERATING WELL. Addendum: 05/17/20 at 0504 by RUCHI BREEN RN ERROR - DISREGARD NOTED. WRONG TIME.
[2020-05-16 12:00] VITALS: BP 120/71
[2020-05-16] MEDS: INSULIN REGULAR, HUMAN 100 UNIT/ML 3 ML VIAL SQ PRN (12:33)
[2020-05-16 16:00] VITALS: BP 107/64
--- NOTE | 2020-05-16 17:20 | NUR ---
RT NOTE TITRATED FIO2 TO 65% AT THIS TIME. PT TOLERATING WELL. WILSON TILLMAN AWARE. NO DISTRESS NOTED. Addendum: 05/16/20 at 1721 by LISA GAINES RT Amended: Links added.
--- NOTE | 2020-05-16 18:57 | NUR ---
RN OPENING NOTES: RECEIVED PT A/OX4 IN BED SLEEPING COMFORTABLY. PATIENT IN NO S/SX OF ACUTE DISTRESS AT THIS TIME. NO SOB NOTED. PATIENT'S BREATHING IS EVEN AND UNLABORED. PATIENT IS ON 40L OF OXYGEN; 65% VIA HIGH FLOW NC AND 15L OF O2 VIA NRB MASKS PRN; TOLERATING WELL. PATIENT ON TELE MONITORING READING SINUS RHYTHM HR IS @90s AT THE TIME OF RECEIVED. PATIENT ON REGULAR DIET; TOLERATES WELL. NOTED IV SITE ON R UA MIDLINE#18; PATENT, INTACT AND FLUSHING WELL; NO S/S OF INFECTION OR INFILTRATION. VILLARREAL CATH IN PLACE, MODERATE URINE OUTPUT NOTED SAFETY MEASURES HAVE BEEN PROVIDED AND IMPLEMENTED. PATIENT BED ALARM IS ON. HEAD OF BED ELEVATED. BED IS LOCKED, IN LOWEST POSITION AND SIDE RAILS UP. CALL LIGHT WITHIN REACH OF THE PATIENT. APPLICABLE ISOLATION PRECAUTIONS IN PLACE. WILL ENDORSE TO TECHNICAL TRAINING MANAGER NURSE FOR RAFI.
--- NOTE | 2020-05-16 19:45 | NUR ---
SHOVEL OILER OPENING NOTES PATIENT A/O X4; ABLE TO MAKE NEEDS KNOWN. ON O2 HIGH FLOW 40LPM/ 65% AND NRB; TOLERATING WELL WITH NO SOB. EXTERNAL RETAIL SUPPORT SPECIALIST READS NSR AND HR AT 88. JUMA MIDLINE; PATENT AND INTACT. DENIES PAIN OR DISCOMFORT AT THIS TIME. SAFETY MEASURES IN PLACE: SIDE RAILS UPX2, CALL LIGHT WITHIN REACH, BED IN LOWEST LOCKED POSITION, BED ALARMS ON. PATIENT MEDICALLY STABLE.
[2020-05-16 20:00] VITALS: BP 122/73
[2020-05-16] MEDS: SIMVASTATIN 10 MG TABLET PO SCH (21:44)
[2020-05-16] MEDS: LATANOPROST EYE DROP 0.005% 2.5 ML BOTTLE EACHEYE SCH (21:46)
--- NOTE | 2020-05-16 23:15 | NUR ---
INSTRUMENT ADJUSTER NOTE - O2 VAPOTHERM PATIENT SPO2 AT 92%. RT TITRATED PATIENTS HIGHFLOW TO 40 LPM / FIO2 70%; TOLERATING WELL.
[2020-05-17] VITALS: BP 122/73
[2020-05-17] MEDS: GUAIFENESIN/CODEINE 10 ML UDC PO PRN ×3 (02:18→23:18)
[2020-05-17 04:00] VITALS: BP 106/51
--- NOTE | 2020-05-17 06:07 | NUR ---
PHD INTERNSHIP CLOSING NOTES PATIENT A/O X4; ABLE TO MAKE NEEDS KNOWN. ON O2 HIGH FLOW 40LPM/ 70% AND NRB 15LPM; TOLERATING WELL WITH NO SOB. EXTERNAL LEAD DATA ARCHITECT READS NSR AND HR AT 86. JUMA MIDLINE; PATENT AND INTACT. VILLARREAL CATHETER DRAINING DARK ISAAC COLORED URINE; PATENT AND INTACT. DENIES PAIN OR DISCOMFORT AT THIS TIME. SAFETY MEASURES IN PLACE: SIDE RAILS UPX2, CALL LIGHT WITHIN REACH, BED IN LOWEST LOCKED POSITION, BED ALARMS ON. PATIENT MEDICALLY STABLE. WILL ENDORSE RAFI TO ONCOMING MORNING RN.
[2020-05-17] MEDS: PANTOPRAZOLE 40 MG TABLET.DR PO SCH (06:33)
--- NOTE | 2020-05-17 07:30 | NUR ---
RN OPENING NOTES PATIENT RECEIVED IN BED RESTING IN SEMI FOWLERS POSITION. PATIENT IS A/O X4 AND ABLE TO MAKE NEEDS KNOWN. PATIENT IS ON O2 THERAPY VIA HIGH FLOW NC 40LPM, 70% AND NRB 15LPM, TOLERATING WELL WITH NO SOB. JUMA MIDLINE PATENT AND INTACT. VILLARREAL CATHETER DRAINING DARK ISAAC COLORED URINE PATENT AND INTACT. PATIENT DENIES PAIN OR DISCOMFORT AT THIS TIME. SAFETY MEASURES IMPLEMENTED, BED LOCKED IN LOWEST POSITION, SIDE RAILS UP X2, CALL LIGHT WITHIN REACH. WILL CONTINUE TO MONITOR AND PROVIDE CARE THROUGHOUT SHIFT.
[2020-05-17] MEDS: BLOOD SUGAR DIAGNOSTIC 1 EACH STRIP VI SCH ×4 (07:40→21:11)
[2020-05-17 08:00] VITALS: BP 150/76
[2020-05-17] MEDS: DEXAMETHASONE SOD PHOSPHATE 4 MG/ML VIAL IV SCH (08:29)
[2020-05-17] MEDS: CARVEDILOL 12.5 MG TABLET PO SCH ×2 (08:31→17:17)
[2020-05-17] MEDS: LORAZEPAM 0.5 MG TABLET PO SCH ×2 (08:31→17:17)
[2020-05-17] MEDS: ASPIRIN 81 MG TAB.CHEW PO SCH (08:31)
[2020-05-17] MEDS: AMLODIPINE BESYLATE 2.5 MG TABLET PO SCH (08:32)
[2020-05-17] MEDS: TAMSULOSIN 0.4 MG CAP.SR.24H PO SCH (08:32)
[2020-05-17] MEDS: FINASTERIDE (5 MG) 5 MG TABLET PO SCH (08:32)
[2020-05-17] MEDS: ENOXAPARIN SODIUM 40 MG/0.4 ML DISP.SYRIN SQ SCH (08:52)
[2020-05-17] MEDS: Z GUARD REMEDY 2 OZ OINT TP SCH (09:00)
[2020-05-17] MEDS: CLOTRIMAZOLE 1% 15 GM TUBE TP SCH ×2 (09:00→17:17)
--- NOTE | 2020-05-17 09:11 | NUR ---
Patient placed on [address] CHILDERS order but started desat to low 70s and patient were placed back on hfnc 40 L, 70% with NRB. Patient WILSON Sheets was awared with charge account authorizer SunnY.
[2020-05-17 11:50] LABS: ABG BASE EXCESS 4.5 mmol/L; ABG OXYGEN SATURATION 91.9 % (92.0-98.5); ABG PCO2 45.5 mmHg (35.0-45.0); ABG PO2 64.1 mmHg (75.0-100.0); AaDO2 386.1 mmHg; COHb 1.4 % (0.5-1.5); MetHb 0.2 % (0.0-1.5); O2Hb 90.4 % (94.0-97.0); SITE, ABG Left Radial
[2020-05-17 12:00] VITALS: BP 105/60
[2020-05-17] MEDS: INSULIN REGULAR, HUMAN 100 UNIT/ML 3 ML VIAL SQ PRN ×2 (12:23→17:19)
[2020-05-17] MEDS: AMPICILLIN SODIUM 2 GM in IV NS 0.9% 100 ML IV SCH ×3 (12:24→23:18)
--- NOTE | 2020-05-17 12:35 | NUR ---
Patient does not tolerate high flow without NRB and placed back on NRB with hfnc. ABG done with NRB with high flow. casino games dealer and patient RN awared.
[2020-05-17] MEDS ORDERED: CEFTRIAXONE 1 G in IV D5W 50 ML IV SCH (13:00)
[2020-05-17 16:00] VITALS: BP 117/75
[2020-05-17] MEDS: METFORMIN 500 MG TABLET PO SCH (17:17)
--- NOTE | 2020-05-17 19:20 | NUR ---
RECEIVED PATIENT IN BED, AWAKE AND EATING DINNER A/OX4 BREATHING EVEN AND UNLABORED,ABLE TO VERBALIZED NEEDS ON NON - REBREATHER MASK 15L AND HIGH FLOW NC, 40L, 70%FIO2, SPO2 IS 92-94%, , NORMAL SINUS RHYTHM ON TELE-MONITOR WITH HR 60-80S, IV LINES PATENT ,INTACT AND FLUSHED , VILLARREAL CATHETER IN PLACE WITH YELLOW URINE DRAINING VIA GRAVITY, SAFETY MEASURES IN PLACE, CALL LIGHT IN REACH, HOB ELEVATED, WILL CONT TO MONITOR .
--- NOTE | 2020-05-17 19:38 | NUR ---
RN CLOSING NOTES PATIENT IN BED RESTING IN SEMI FOWLERS POSITION. PATIENT IS A/O X4 AND ABLE TO MAKE NEEDS KNOWN. PATIENT IS ON O2 THERAPY VIA HIGH FLOW NC 40LPM, 70% AND NRB 15LPM, TOLERATING WELL WITH NO SOB. JUMA MIDLINE PATENT AND INTACT. VILLARREAL CATHETER DRAINING DARK ISAAC COLORED URINE PATENT AND INTACT. PATIENT DENIES PAIN OR DISCOMFORT AT THIS TIME. SAFETY MEASURES IMPLEMENTED, BED LOCKED IN LOWEST POSITION, SIDE RAILS UP X2, CALL LIGHT WITHIN REACH. PATIENT TITRATED TO SIMPLE FACE MASK AT 10 LPM BUT DID NOT TOLERATE WELL. PATIENT DESATURATION AND INCREASED WORK OF BREATHING NOTED. PATIENT PLACED BACK ON HFNC 40 LPM 70% + NRB AT 15 LPM AND TOLERATING WELL. WILL ENDORSE CARE TO UPCOMING SHIFT.
[2020-05-17 20:00] VITALS: BP 103/57
[2020-05-17] MEDS: LATANOPROST EYE DROP 0.005% 2.5 ML BOTTLE EACHEYE SCH (21:03)
[2020-05-17] MEDS: SIMVASTATIN 10 MG TABLET PO SCH (21:03)
[2020-05-18] VITALS: BP_SYST 108; BP_SYST 115; BP_DIAS 67; BP_DIAS 79
[2020-05-18 04:00] VITALS: BP 111/57
[2020-05-18] MEDS: AMPICILLIN SODIUM 2 GM in IV NS 0.9% 100 ML IV SCH ×4 (05:45→23:17)
[2020-05-18 05:47] LABS: BASOPHILS % (AUTO) 0.6 % (0.0-2.0); EOSINOPHILS % (AUTO) 1.3 % (0.0-6.0); HEMATOCRIT 34 % (39-51); HEMOGLOBIN 11.2 g/dL (13.5-17.5); LYMPHOCYTES # (AUTO) 1.4 /CMM (0.8-4.8); LYMPHOCYTES % (AUTO) 25.9 % (20.0-44.0); MEAN CORPUSCULAR HGB CONC 33 g/dl (31.0-36.0); MEAN CORPUSCULAR VOLUME 82 fL (80-96); MONOCYTES # (AUTO) 0.2 /CMM (0.1-1.30); MONOCYTES % (AUTO) 4.4 % (2.0-12.0); NEUTROPHILS # (AUTO) 3.8 /CMM (1.8-8.9); NEUTROPHILS % (AUTO) 67.8 % (43.0-81.0); PLATELET COUNT (AUTO) 107 /CMM (150-450); RED BLOOD CELL COUNT(AUTO) 4.16 MIL/uL (4.5-6.0); WHITE BLOOD COUNT (AUTO) 5.5 K/uL (4.3-11.0)
[2020-05-18 06:14] LABS: C-REACTIVE PROTEIN 4.1 mg/dL (0.0-0.9)
[2020-05-18 06:43] LABS: CALCIUM, SERUM 7.9 mg/dL (8.5-10.1); CREATININE 0.6 mg/dL (0.6-1.3); POTASSIUM 3.3 mmol/L (3.5-5.1)
--- NOTE | 2020-05-18 06:48 | NUR ---
PT ON BED ASLEEP STILL ON HIGH FLOW 40L FIO2 70% AND NON REBREATHER MASK 15L NEEDED SPO2 95% NO SIGN AND SYMPTOMS OF DISTRESS, BEDSIDE MONITOR READS SINUS RHYTHM 80'S NO SIGNIFICANT CHANGES ON CONDITION NOTED ALL NEEDS ATTENDED BED ON LOWEST POSITION AND LOCKED SIDE RAILS UP X2 CALL LIGHT WITHIN REACH WILL CONT TO MONITOR THE PT
--- NOTE | 2020-05-18 07:15 | NUR ---
RN OPENING NOTES RECEIVED PT IN BED RESTING IN SEMI FOWLERS POSITION. A/O X4. O2 VIA HIGH FLOW @40LPM, 70% AND NRB 15LPM, TOLERATING WELL. NO SOB. JUMA MIDLINE INTACT, PATENT AND FLUSHED. VILLARREAL CATHETER IN PLACE. DENIES PAIN OR DISCOMFORT AT THIS TIME. SAFETY MEASURES IMPLEMENTED. BED LOCKED AND IN LOWEST POSITION WITH SIDE RAILS UP X2. CALL LIGHT WITHIN REACH. WILL CONTINUE TO MONITOR.
[2020-05-18] MEDS: INSULIN REGULAR, HUMAN 100 UNIT/ML 3 ML VIAL SQ PRN ×3 (07:59→17:40)
[2020-05-18] MEDS: BLOOD SUGAR DIAGNOSTIC 1 EACH STRIP VI SCH ×4 (07:59→21:38)
[2020-05-18 08:00] VITALS: BP 158/87
[2020-05-18] MEDS: LORAZEPAM 0.5 MG TABLET PO SCH ×2 (09:06→17:06)
[2020-05-18] MEDS: FINASTERIDE (5 MG) 5 MG TABLET PO SCH (09:06)
[2020-05-18] MEDS: METFORMIN 500 MG TABLET PO SCH ×2 (09:06→17:06)
[2020-05-18] MEDS: AMLODIPINE BESYLATE 2.5 MG TABLET PO SCH (09:06)
[2020-05-18] MEDS: ASPIRIN 81 MG TAB.CHEW PO SCH (09:06)
[2020-05-18] MEDS: CARVEDILOL 12.5 MG TABLET PO SCH ×2 (09:06→17:07)
[2020-05-18] MEDS: TAMSULOSIN 0.4 MG CAP.SR.24H PO SCH (09:06)
[2020-05-18] MEDS: ENOXAPARIN SODIUM 40 MG/0.4 ML DISP.SYRIN SQ SCH (09:07)
[2020-05-18] MEDS: CLOTRIMAZOLE 1% 15 GM TUBE TP SCH ×2 (09:07→17:07)
[2020-05-18] MEDS: Z GUARD REMEDY 2 OZ OINT TP SCH (09:07)
[2020-05-18] MEDS: PANTOPRAZOLE 40 MG TABLET.DR PO SCH (09:07)
[2020-05-18] MEDS ORDERED: POTASSIUM CHLORIDE 20 MEQ TAB.PRT.SR PO ONE (09:30)
[2020-05-18] MEDS: GUAIFENESIN/CODEINE 10 ML UDC PO PRN ×2 (11:55→19:16)
[2020-05-18 12:00] VITALS: BP 113/52
[2020-05-18 16:00] VITALS: BP_SYST 113; BP_SYST 118; BP_DIAS 52; BP_DIAS 69
--- NOTE | 2020-05-18 18:45 | NUR ---
RN CLOSING NOTES NO SIGNIFICANT CHANGES THROUGHOUT THE SHIFT. NEEDS ATTENDED. DENIES ANY PAIN. STABLE CONDITION. SAFETY MEASURES IN PLACE. WILL ENDORSE TO NIGHT NURSE FOR RAFI.
--- NOTE | 2020-05-18 19:10 | NUR ---
RN OPENING NOTE RECEIVED PATIENT IN BED RESTING ALERT ORIENTED X4 VERBALLY RESPONSIVE ON HIGH FLOW OXYGEN 40L FIO2:70% AND 15 NON REBREATHER MASK O2:92% VILLARREAL CATHETER IN PLACE URINE DRAINING CLEAR BY GRAVITY,SAFETY MEASURE IMPLEMENT,CALL LIGHT WITHIN REACH,BED IN LOW POSITION AND LOCKED,HEAD OF BEAD ELEVATED CONTINUE TO MONITOR.
[2020-05-18 20:00] VITALS: BP 109/62
[2020-05-18] MEDS: LATANOPROST EYE DROP 0.005% 2.5 ML BOTTLE EACHEYE SCH (21:09)
[2020-05-18] MEDS: SIMVASTATIN 10 MG TABLET PO SCH (21:09)
[2020-05-18] MEDS: *INSULIN REGULAR(HUMULIN R)HUM 100 UNIT/ML VIAL SQ PRN (21:39)
--- NOTE | 2020-05-18 22:00 | NUR ---
RN NOTE BS IS 93 NOT REQUIRES INSULIN SLIDING SCALE CONTINUE TO MONITOR
[2020-05-19] VITALS: BP 128/75
[2020-05-19 04:00] VITALS: BP 135/71
[2020-05-19] MEDS: AMPICILLIN SODIUM 2 GM in IV NS 0.9% 100 ML IV SCH ×2 (05:14→12:12)
[2020-05-19 06:38] LABS: BASOPHILS % (AUTO) 0.5 % (0.0-2.0); EOSINOPHILS % (AUTO) 1.7 % (0.0-6.0); HEMATOCRIT 37 % (39-51); HEMOGLOBIN 11.7 g/dL (13.5-17.5); LYMPHOCYTES # (AUTO) 1.3 /CMM (0.8-4.8); LYMPHOCYTES % (AUTO) 22.9 % (20.0-44.0); MEAN CORPUSCULAR HGB CONC 32 g/dl (31.0-36.0); MEAN CORPUSCULAR VOLUME 83 fL (80-96); MONOCYTES # (AUTO) 0.3 /CMM (0.1-1.30); MONOCYTES % (AUTO) 4.7 % (2.0-12.0); NEUTROPHILS # (AUTO) 4.1 /CMM (1.8-8.9); NEUTROPHILS % (AUTO) 70.2 % (43.0-81.0); PLATELET COUNT (AUTO) 106 /CMM (150-450); RED BLOOD CELL COUNT(AUTO) 4.42 MIL/uL (4.5-6.0); WHITE BLOOD COUNT (AUTO) 5.8 K/uL (4.3-11.0)
--- NOTE | 2020-05-19 06:55 | NUR ---
RN CLOSING NOTE PATEINT REMAINS ON ALERT ORIENTED X4 VERBALLY RESPONSIVE ON HIGH FLOW 40L OXYGEN AND NON REBREATHER MASK 15L O2:91-93%,IV SITE IS ON RIGHT UPPER ARM INTACT PATENT VILLARREAL ON PLACE,ALL DUE MEDS GIVEN MD ORDERED KEPT CLEAN AND DRY KEPT CALL LIGHT WITHIN REACH,ALL NEEDS MET ENDORSE NEXT COMING SHIFT FOR CONTINUATION OF CARE
[2020-05-19 07:05] LABS: CALCIUM, SERUM 8.1 mg/dL (8.5-10.1); CREATININE 0.5 mg/dL (0.6-1.3); POTASSIUM 3.5 mmol/L (3.5-5.1)
--- NOTE | 2020-05-19 07:30 | NUR ---
RN OPENING NOTES PATIENT IN BED RESTING IN SEMI FOWLERS POSITION. PATIENT IS A/O X4 AND ABLE TO MAKE NEEDS KNOWN. PATIENT IS ON O2 THERAPY VIA HIGH FLOW NC 40LPM, 70% AND NRB 15LPM, TOLERATING WELL WITH NO SOB. JUMA MIDLINE PATENT AND INTACT. VILLARREAL CATHETER DRAINING DARK ISAAC COLORED URINE PATENT AND INTACT. PATIENT DENIES PAIN OR DISCOMFORT AT THIS TIME. SAFETY MEASURES IMPLEMENTED, BED LOCKED IN LOWEST POSITION, SIDE RAILS UP X2, CALL LIGHT WITHIN REACH. WILL CONTINUE TO MONITOR AND PROVIDE CARE THROUGHOUT SHIFT.
[2020-05-19 08:00] VITALS: BP 129/74
[2020-05-19] MEDS: BLOOD SUGAR DIAGNOSTIC 1 EACH STRIP VI SCH ×4 (08:28→21:10)
[2020-05-19] MEDS: PANTOPRAZOLE 40 MG TABLET.DR PO SCH (08:34)
[2020-05-19] MEDS: CARVEDILOL 12.5 MG TABLET PO SCH ×2 (08:35→16:21)
[2020-05-19] MEDS: AMLODIPINE BESYLATE 2.5 MG TABLET PO SCH (08:35)
[2020-05-19] MEDS: METFORMIN 500 MG TABLET PO SCH ×2 (08:35→16:21)
[2020-05-19] MEDS: LORAZEPAM 0.5 MG TABLET PO SCH ×2 (08:35→16:20)
[2020-05-19] MEDS: FINASTERIDE (5 MG) 5 MG TABLET PO SCH (08:35)
[2020-05-19] MEDS: ASPIRIN 81 MG TAB.CHEW PO SCH (08:35)
[2020-05-19] MEDS: TAMSULOSIN 0.4 MG CAP.SR.24H PO SCH (08:35)
[2020-05-19] MEDS: CLOTRIMAZOLE 1% 15 GM TUBE TP SCH ×2 (08:43→17:46)
[2020-05-19] MEDS: Z GUARD REMEDY 2 OZ OINT TP SCH (08:43)
[2020-05-19] MEDS: ENOXAPARIN SODIUM 40 MG/0.4 ML DISP.SYRIN SQ SCH (08:43)
[2020-05-19 12:00] VITALS: BP 95/62
[2020-05-19] MEDS: GUAIFENESIN/CODEINE 10 ML UDC PO PRN ×2 (12:39→17:48)
[2020-05-19 16:00] VITALS: BP 133/74
[2020-05-19] MEDS: PHENYLEPHRINE/SHK LV/MO/PET,WH 30 GM TUBE RC PRN (16:15)
[2020-05-19] MEDS: ACETAMINOPHEN 325 MG TABLET PO PRN (16:21)
--- NOTE | 2020-05-19 19:02 | NUR ---
RN CLOSING NOTES PATIENT IN BED RESTING IN SEMI FOWLERS POSITION. PATIENT IS A/O X4 AND ABLE TO MAKE NEEDS KNOWN. PATIENT IS ON O2 THERAPY VIA HIGH FLOW NC 40LPM, 70% AND NRB 15LPM, TOLERATING WELL WITH NO SOB. JUMA MIDLINE PATENT AND INTACT. VILLARREAL CATHETER DRAINING DARK ISAAC COLORED URINE PATENT AND INTACT. PATIENT DENIES PAIN OR DISCOMFORT AT THIS TIME. SAFETY MEASURES IMPLEMENTED, BED LOCKED IN LOWEST POSITION, SIDE RAILS UP X2, CALL LIGHT WITHIN REACH. WILL ENDORSE CARE TO UPCOMING SHIFT.
[2020-05-19] MEDS: AMOXICILLIN TRIHYDRATE 250 MG CAPSULE PO SCH (19:27)
--- NOTE | 2020-05-19 19:30 | NUR ---
RN OPENING NOTE RECEIVED PATIENT IN BED RESTING ALERT ORIENTED X4 ON HIGH FLOW OXYGEN 40L FIO2:70% AND 15L NON REBREATHER MASK O2:86-87% IV SITE IS ON RIGHT UPPER ARM MID LINE INTACT PATENT FLUSHED,HEAD OF BED ELEVATED,VILLARREAL ON PLACE URINE DRAINING DARK YELLOW BY GRAVITY,CALL LIGHT WITHIN REACH,BED IN LOW POSITION AND LOCKED,SAFETY MEASURE IMPLEMENT CONTINUE TO MONITOR.
[2020-05-19 20:00] VITALS: BP 100/52
[2020-05-19] MEDS: LATANOPROST EYE DROP 0.005% 2.5 ML BOTTLE EACHEYE SCH (21:02)
[2020-05-19] MEDS: SIMVASTATIN 10 MG TABLET PO SCH (21:03)
[2020-05-19] MEDS: INSULIN REGULAR, HUMAN 100 UNIT/ML 3 ML VIAL SQ PRN (21:14)
[2020-05-20] VITALS: BP 137/69
[2020-05-20 04:00] VITALS: BP 152/77
[2020-05-20] MEDS: AMOXICILLIN TRIHYDRATE 250 MG CAPSULE PO SCH ×3 (04:29→20:05)
[2020-05-20] MEDS: GUAIFENESIN/CODEINE 10 ML UDC PO PRN ×3 (04:47→17:32)
--- NOTE | 2020-05-20 06:40 | NUR ---
RN CLOSING NOTE PATIENT REMAINS ON ALERT ORIENTED X4 VERBALLY RESPONSIVE ON HIGH FLOW OXYGEN 40L FIO2:80% AND 15L NON REBREATHER MASK O2:92% IV SITE IS ON RIGHT UPPER ARM MID LINE INTACT PATENT FLUSHED VILLARREAL ON PLACE,ALL DUE MEDS GIVEN MD ORDERED KEPT CLEAN AND DRY ALL THE TIME,KEPT COMFORTABLE,ALL NEEDS MET ENDORSE NEXT COMING SHIFT FOR CONTINUATION OF CARE.
--- NOTE | 2020-05-20 07:30 | NUR ---
RN OPENING NOTE PT IN BED SEMIFOWLERS A/Ox4 ON HIGH FLOW OXYGEN 40L FIO2:80% AND 15L NON REBREATHER MASK SPO2:93-94%, NO SIGN OF RESP DISTRESS OR SOB. PT JUMA MIDLINE SL, FLUSHED, INTACT AND PATENT. VILLARERAL CATH IN PLACE URINE DRAINING DARK YELLOW BY GRAVITY. SACRAL REDNESS. ALL SAFETY PRECAUTIONS IN PLACE, WILL CONTINUE TO MONITOR.
[2020-05-20] MEDS: BLOOD SUGAR DIAGNOSTIC 1 EACH STRIP VI SCH ×4 (07:46→22:14)
[2020-05-20 08:00] VITALS: BP 116/80
[2020-05-20] MEDS: ASPIRIN 81 MG TAB.CHEW PO SCH (08:25)
[2020-05-20] MEDS: TAMSULOSIN 0.4 MG CAP.SR.24H PO SCH (08:25)
[2020-05-20] MEDS: FINASTERIDE (5 MG) 5 MG TABLET PO SCH (08:25)
[2020-05-20] MEDS: LORAZEPAM 0.5 MG TABLET PO SCH ×2 (08:26→16:25)
[2020-05-20] MEDS: CARVEDILOL 12.5 MG TABLET PO SCH ×2 (08:26→16:26)
[2020-05-20] MEDS: METFORMIN 500 MG TABLET PO SCH ×2 (08:26→16:25)
[2020-05-20] MEDS: AMLODIPINE BESYLATE 2.5 MG TABLET PO SCH (08:27)
[2020-05-20] MEDS: CLOTRIMAZOLE 1% 15 GM TUBE TP SCH ×2 (08:27→16:26)
[2020-05-20] MEDS: PANTOPRAZOLE 40 MG TABLET.DR PO SCH (08:27)
[2020-05-20] MEDS: Z GUARD REMEDY 2 OZ OINT TP SCH (08:27)
[2020-05-20] MEDS: ENOXAPARIN SODIUM 40 MG/0.4 ML DISP.SYRIN SQ SCH (08:33)
--- NOTE | 2020-05-20 09:43 | NUR ---
WILSON MARC WILL CALL BACK ,WHEN PT READY FOR EXAM, RN BUSY AT PRESANT MOMENT. FARIHA
--- NOTE | 2020-05-20 10:30 | NUR ---
RN NOTE PT BACK OIN STABLE CONDITION FROM CHEST ST SCAN
[2020-05-20 12:00] VITALS: BP 106/56
[2020-05-20] MEDS: INSULIN REGULAR, HUMAN 100 UNIT/ML 3 ML VIAL SQ PRN (12:22)
--- NOTE | 2020-05-20 12:45 | NUR ---
RN NOTE SPOKE WITH PT'S DAUGHTER MAURICIO ABOUT PT'S CONDITION, INFORMED DR. CRUZ THAT MAURICIO WOULD LIKE TO SPEAK TO HIM REGARDING RESULTS OF PT. INFORMED DR CRUZ
[2020-05-20 16:00] VITALS: BP 130/68
--- NOTE | 2020-05-20 18:47 | NUR ---
RN CLOSING NOTE NO CHANGES TO PT STATUS DURING SHIFT. PT ON HIGH FLOW 40L 80% FIO2 WITH NRB 15LPM, SPO2 92-94%, NO SIGNS OF RESP DISTRESS OR SOB. ALL PT SAFETY PRECAUTION IN PLACE. WILL ENDORSE RAFI TO ONCOMING NURSE
--- NOTE | 2020-05-20 19:00 | NUR ---
RN OPENING NOTE RECEIVED PATIENT IN BED RESTING ALERT ORIENTED X4 VERBALLY RESPONSIVE,ON 40L HIGH FLOW OXYGEN FIO2:80% AND 15L NON REBREATHER MASK O2:90% IV IS ON RIGHT UPPER ARM MID LINE INTACT PATENT FLUSHED,VILLARREAL IN PLACE URINE DARK YELLOW DRAINING BY GRAVITY,SAFETY MEASURE IMPLEMENT CALL LIGHT WITHIN REACH,CONTINUE TO MONITOR.
[2020-05-20 20:00] VITALS: BP 109/54
[2020-05-20] MEDS: SIMVASTATIN 10 MG TABLET PO SCH (21:08)
[2020-05-20] MEDS: LATANOPROST EYE DROP 0.005% 2.5 ML BOTTLE EACHEYE SCH (21:08)
--- NOTE | 2020-05-20 22:00 | NUR ---
RN NOTE BLOOD SUGAR IS 128 INSULIN NOT REQUIRES BY SLIDING SCALE CONTINUE TO MONITOR
[2020-05-20] MEDS: *INSULIN REGULAR(HUMULIN R)HUM 100 UNIT/ML VIAL SQ PRN (22:14)
[2020-05-21] VITALS: BP 122/70
[2020-05-21] MEDS: GUAIFENESIN/CODEINE 10 ML UDC PO PRN ×4 (00:51→23:36)
[2020-05-21] MEDS: AMOXICILLIN TRIHYDRATE 250 MG CAPSULE PO SCH ×3 (04:26→21:31)
[2020-05-21 06:00] VITALS: BP 119/66
[2020-05-21 06:24] LABS: BASOPHILS % (AUTO) 0.5 % (0.0-2.0); EOSINOPHILS % (AUTO) 2.8 % (0.0-6.0); HEMATOCRIT 33 % (39-51); HEMOGLOBIN 10.8 g/dL (13.5-17.5); LYMPHOCYTES # (AUTO) 1.3 /CMM (0.8-4.8); LYMPHOCYTES % (AUTO) 28.5 % (20.0-44.0); MEAN CORPUSCULAR HGB CONC 32 g/dl (31.0-36.0); MEAN CORPUSCULAR VOLUME 83 fL (80-96); MONOCYTES # (AUTO) 0.3 /CMM (0.1-1.30); MONOCYTES % (AUTO) 5.8 % (2.0-12.0); NEUTROPHILS # (AUTO) 2.8 /CMM (1.8-8.9); NEUTROPHILS % (AUTO) 62.4 % (43.0-81.0); PLATELET COUNT (AUTO) 101 /CMM (150-450); WHITE BLOOD COUNT (AUTO) 4.6 K/uL (4.3-11.0)
--- NOTE | 2020-05-21 06:47 | NUR ---
RN CLOSING NOTE PATIENT REMAINS ON ALERT ORIENTED X4 VERBALLY RESPONSIVE ON HIGH FLOW OXYGEN 40L FIO2:80% AND 15 L NON REBREATHER MASK O2:94% HEAD OF BED ELEVATED ALL THE TIME,IV SITE IS ON RIGHT UPPER ARM MIDLINE INTACT PATENT,VILLARREAL CATHETER IN PLACE, ALL DUE MEDS GIVEN MD ORDERED KEPT CLEAN AND DRY,KEPT CALL LIGHT WITHIN REACH,ALL NEEDS MET ENDORSE NEXT COMING SHIFT FOR CONTINUATION OF CARE.
[2020-05-21 07:00] LABS: CALCIUM, SERUM 8.1 mg/dL (8.5-10.1); CREATININE 0.5 mg/dL (0.6-1.3); POTASSIUM 3.3 mmol/L (3.5-5.1)
[2020-05-21] MEDS: BLOOD SUGAR DIAGNOSTIC 1 EACH STRIP VI SCH ×4 (07:30→21:39)
--- NOTE | 2020-05-21 07:30 | NUR ---
RN OPENING NOTE PT IN BED SEMIFOWLERS A/Ox4 ON HIGH FLOW OXYGEN 40L FIO2:80% AND 15L NON REBREATHER MASK SPO2:92-94%, NO SIGN OF RESP DISTRESS OR SOB. PT JUMA MIDLINE SL, FLUSHED, INTACT AND PATENT. VILLARREAL CATH IN PLACE ISAAC URINE DRAINING BY GRAVITY. SACRAL REDNESS. ALL SAFETY PRECAUTIONS IN PLACE, WILL CONTINUE TO MONITOR.
[2020-05-21 08:00] VITALS: BP 142/73
[2020-05-21] MEDS: METFORMIN 500 MG TABLET PO SCH ×2 (08:18→17:57)
[2020-05-21] MEDS: PANTOPRAZOLE 40 MG TABLET.DR PO SCH (08:18)
[2020-05-21] MEDS: FINASTERIDE (5 MG) 5 MG TABLET PO SCH (08:19)
[2020-05-21] MEDS: TAMSULOSIN 0.4 MG CAP.SR.24H PO SCH (08:19)
[2020-05-21] MEDS: ASPIRIN 81 MG TAB.CHEW PO SCH (08:19)
[2020-05-21] MEDS: AMLODIPINE BESYLATE 2.5 MG TABLET PO SCH (08:19)
[2020-05-21] MEDS: CARVEDILOL 12.5 MG TABLET PO SCH ×2 (08:19→17:58)
[2020-05-21] MEDS: LORAZEPAM 0.5 MG TABLET PO SCH ×2 (08:19→17:57)
[2020-05-21] MEDS: ENOXAPARIN SODIUM 40 MG/0.4 ML DISP.SYRIN SQ SCH (08:25)
[2020-05-21] MEDS: Z GUARD REMEDY 2 OZ OINT TP SCH (08:31)
[2020-05-21] MEDS: CLOTRIMAZOLE 1% 15 GM TUBE TP SCH ×2 (08:31→17:00)
--- NOTE | 2020-05-21 09:15 | NUR ---
RN NOTE DR CRUZ NOTIFIED OF K+ LEVEL OF 3.3
[2020-05-21] MEDS ORDERED: POTASSIUM CHLORIDE 20 MEQ TAB.PRT.SR PO ONE (09:30)
[2020-05-21 12:00] VITALS: BP 133/64
[2020-05-21] MEDS: INSULIN REGULAR, HUMAN 100 UNIT/ML 3 ML VIAL SQ PRN (12:33)
--- NOTE | 2020-05-21 14:00 | NUR ---
RN NOTE PT VILLARREAL REMOVED AT 1345. WILL ASSESS URINARY PATTERN
--- NOTE | 2020-05-21 15:00 | NUR ---
RN NOTE PT ABLE TO TOLERATE SITTING IN CHAIR FOR 2HR WELL. DESATURATED TO LOW 80s BUT SPO2 BACK UP TO 93-95% WITHIN 5-7 MIN
[2020-05-21 16:00] VITALS: BP 152/93
--- NOTE | 2020-05-21 19:00 | NUR ---
RN CLOSING NOTE PT IN STABLE CONDITION, ON HIGH FLOW NC AND NRB PER ORDERS, NO SIGNS OF RESP DISTRESS OR SOB. WILL INFORM STOVE MECHANIC RN THAT 6 HR POST VILLARREAL CATH REMOVAL TIME IS AT 1945. PT HAS YET TO VOID SINCE REMOVAL OF VILLARREAL. NO MAJOR CHANGES TO PT STATUS, WILL ENDORSE RAFI TO ONCOMING RN
--- NOTE | 2020-05-21 19:05 | NUR ---
RECEIVED PATIENT IN BED, AWAKE A/OX4 BREATHING EVEN AND UNLABORED,ABLE TO VERBALIZED NEEDS ON NON - REBREATHER MASK 15L AND HIGH FLOW NC, 40L, 80%FIO2, SPO2 IS 94-96%, , NORMAL SINUS RHYTHM ON TELE-MONITOR WITH HR 60-80S, IV LINES PATENT ,INTACT AND FLUSHED , SAFETY MEASURES IN PLACE, CALL LIGHT IN REACH, HOB ELEVATED, WILL CONT TO MONITOR
[2020-05-21 20:00] VITALS: BP 119/62
[2020-05-21] MEDS: SIMVASTATIN 10 MG TABLET PO SCH (21:31)
[2020-05-21] MEDS: LATANOPROST EYE DROP 0.005% 2.5 ML BOTTLE EACHEYE SCH (21:32)
[2020-05-21] MEDS: *INSULIN REGULAR(HUMULIN R)HUM 100 UNIT/ML VIAL SQ PRN (21:41)
[2020-05-22] VITALS: BP 103/57
[2020-05-22 04:00] VITALS: BP 142/72
[2020-05-22] MEDS: GUAIFENESIN/CODEINE 10 ML UDC PO PRN ×2 (04:07→15:57)
[2020-05-22] MEDS: AMOXICILLIN TRIHYDRATE 250 MG CAPSULE PO SCH ×3 (04:07→20:55)
--- NOTE | 2020-05-22 04:27 | NUR ---
PT NOT YET PEEING AFTER THE REMOVAL OF VILLARREAL CATHETER AND PT IS NOT URGING TO PEE ALSO, DO THE BLADDER SCAN AND NOTED >[address] CRUZ WITH ORDER TO INSERT VILLARREAL CATHETER NOTED AND CARRIED OUT
[2020-05-22] MEDS: BLOOD SUGAR DIAGNOSTIC 1 EACH STRIP VI SCH ×4 (07:15→21:04)
[2020-05-22] MEDS: INSULIN REGULAR, HUMAN 100 UNIT/ML 3 ML VIAL SQ PRN ×3 (07:16→17:15)
--- NOTE | 2020-05-22 07:24 | NUR ---
RN OPEN NOTES PATIENT IN BED, AWAKE A/OX4 BREATHING EVEN AND UNLABORED,ABLE TO VERBALIZED NEEDS ON NON - REBREATHER MASK 15L AND HIGH FLOW NC, 40L, 80%FIO2. ON TELE SR. JUMA MIDLINE LINES PATENT ,INTACT AND FLUSHED , SAFETY MEASURES IN PLACE, CALL LIGHT IN REACH, HOB ELEVATED, WILL CONT TO MONITOR
[2020-05-22 08:00] VITALS: BP 123/69
[2020-05-22] MEDS: METFORMIN 500 MG TABLET PO SCH ×2 (08:42→16:47)
[2020-05-22] MEDS: PANTOPRAZOLE 40 MG TABLET.DR PO SCH (08:42)
[2020-05-22] MEDS: CARVEDILOL 12.5 MG TABLET PO SCH ×2 (08:42→16:43)
[2020-05-22] MEDS: LORAZEPAM 0.5 MG TABLET PO SCH ×2 (08:42→16:47)
[2020-05-22] MEDS: AMLODIPINE BESYLATE 2.5 MG TABLET PO SCH (08:43)
[2020-05-22] MEDS: ENOXAPARIN SODIUM 40 MG/0.4 ML DISP.SYRIN SQ SCH (08:43)
[2020-05-22] MEDS: FINASTERIDE (5 MG) 5 MG TABLET PO SCH (08:44)
[2020-05-22] MEDS: ASPIRIN 81 MG TAB.CHEW PO SCH (08:44)
[2020-05-22] MEDS: TAMSULOSIN 0.4 MG CAP.SR.24H PO SCH (08:44)
[2020-05-22] MEDS: Z GUARD REMEDY 2 OZ OINT TP SCH (08:56)
[2020-05-22] MEDS: CLOTRIMAZOLE 1% 15 GM TUBE TP SCH ×2 (08:56→16:47)
[2020-05-22 14:02] VITALS: BP 105/58
[2020-05-22 16:00] VITALS: BP 98/55
--- NOTE | 2020-05-22 18:45 | NUR ---
PATIENT HAS A SACRAL SKIN TEAR PHOTO WAS TAKEN AND WOUND CONSULT WAS ORDERED. APPLIED OINTMENT AND MEPILEX. WILL CONTINUE TO MONITOR.
--- NOTE | 2020-05-22 19:10 | NUR ---
RN CLOSING NOTES PATIENT IN BED, AWAKE A/OX4 BREATHING EVEN AND UNLABORED ABLE TO VERBALIZED NEEDS, ON A NONREBREATHER MASK 15L AND HIGH FLOW NC, 40L, 80%FIO2. ON TELE SR. JUMA MIDLINE LINES PATENT, INTACT AND FLUSHED, SAFETY MEASURES IN PLACE, CALL LIGHT IN REACH, HOB ELEVATED,ALL NEEDS, AND TREATMENTS WERE PERFORMED ANTICIPATED. WILL ENDORSE TO THE NEXT CHIEF OF ANESTHESIOLOGY.
--- NOTE | 2020-05-22 19:20 | NUR ---
TELE1 RN NOTES RECEIVED ON BED A/O X4,ABLE TO VERBALIZED NEEDS,COVID TEST NEGATIVE ON 04/23/20.ON HIGH FLOW 40L,FIO2-80%,NRB-15L,O2 SAT 95%.RT AT BEDSIDE.WITH RIGHT UPPER ARM MIDLINE FOR MEDS,WITH VILLARREAL CATH IN PLACE DRAINS YELLOWISH URINE OUTPUT.CALL LIGHT IN REACH,NEEDS ANTICIPATED.
[2020-05-22 20:00] VITALS: BP 98/71
--- NOTE | 2020-05-22 20:00 | NUR ---
TELE1 RN NOTES SR WITH BBB-99 HEART RATE ON TELE MONITOR
[2020-05-22] MEDS: LATANOPROST EYE DROP 0.005% 2.5 ML BOTTLE EACHEYE SCH (21:04)
[2020-05-22] MEDS: SIMVASTATIN 10 MG TABLET PO SCH (21:05)
--- NOTE | 2020-05-22 22:00 | NUR ---
TELE1 RN NOTES ACCU-CHECK BLOOD SUGAR CHECK 69,AWAKE,ALERT,ORIENTED X4, NO S/S OF HYPOGLYCEMIA,ORANGE WITH SUGAR GIVEN PO TOLERATED WELL.
[2020-05-23] VITALS: BP 128/70
--- NOTE | 2020-05-23 | NUR ---
TELE1 RN NOTES SLEEPING,KEPT WARM AND COMFORTABLE.
[2020-05-23] MEDS: GUAIFENESIN/CODEINE 10 ML UDC PO PRN ×3 (02:52→21:25)
--- NOTE | 2020-05-23 02:52 | NUR ---
SAND MILL OPERATOR FACING SAND NOTES AWAKE THIS TIME,COUGHING,MEDICATED WITH ROBITUSSIN WITH CODEINE 5ML PO PER PATIENT REQUEST.
[2020-05-23 04:00] VITALS: BP 107/65
[2020-05-23] MEDS: AMOXICILLIN TRIHYDRATE 250 MG CAPSULE PO SCH ×3 (04:52→21:13)
--- NOTE | 2020-05-23 06:13 | NUR ---
TELE1 RN NOTES REMAINS ALERT,ORIENTED X4,MED COMPLIANT.REFUSED TO HAVE BEDDINGS CHANGE BY JANICE LOPEZ.REMAINS ON HIGH FLOW OXYGEN,O2 SAT WNL.IN NO ACUTE DISTRESS.FULL CODE.
--- NOTE | 2020-05-23 07:51 | NUR ---
PATIENT RECEIVED IN BED, ON HF 40L/80% WITH 15L NRM O2 SAT 99%. PATIENT IS ALERT AND ORIENTED X 4. PATIENT HAS JUMA MIDLINE INTACT AND FLUSHED WELL. PATIENT TO HAVE WOUND CONSULT TODAY FOR SACRAL REDNESS. ALL SAFETY MEASURES IN PLACE. WILL CONTINUE TO MONITOR CLOSELY
[2020-05-23 08:00] VITALS: BP 141/79
[2020-05-23] MEDS: ASPIRIN 81 MG TAB.CHEW PO SCH (08:07)
[2020-05-23] MEDS: LORAZEPAM 0.5 MG TABLET PO SCH ×2 (08:07→16:02)
[2020-05-23] MEDS: PANTOPRAZOLE 40 MG TABLET.DR PO SCH (08:07)
[2020-05-23] MEDS: METFORMIN 500 MG TABLET PO SCH ×2 (08:07→16:02)
[2020-05-23] MEDS: ACETAMINOPHEN 325 MG TABLET PO PRN (08:07)
[2020-05-23] MEDS: BLOOD SUGAR DIAGNOSTIC 1 EACH STRIP VI SCH ×4 (08:08→21:13)
[2020-05-23] MEDS: FINASTERIDE (5 MG) 5 MG TABLET PO SCH (08:08)
[2020-05-23] MEDS: AMLODIPINE BESYLATE 2.5 MG TABLET PO SCH (08:08)
[2020-05-23] MEDS: TAMSULOSIN 0.4 MG CAP.SR.24H PO SCH (08:08)
[2020-05-23] MEDS: CARVEDILOL 12.5 MG TABLET PO SCH ×2 (08:09→16:02)
[2020-05-23] MEDS: ENOXAPARIN SODIUM 40 MG/0.4 ML DISP.SYRIN SQ SCH (08:10)
[2020-05-23] MEDS: CLOTRIMAZOLE 1% 15 GM TUBE TP SCH ×2 (08:21→16:02)
[2020-05-23] MEDS: Z GUARD REMEDY 2 OZ OINT TP SCH (08:21)
--- NOTE | 2020-05-23 08:30 | NUR ---
PT TEMP 99.4, PT ALSO COMPLAINS OF HEADACHE AND COUGH. TYLENOL GIVEN, ROBITUSSIN FOR COUGH GIVEN DIRECTED
--- NOTE | 2020-05-23 09:50 | NUR ---
WOUND CARE CONSULT/FOLLOW UP: PT SEEN FOR GLUTEAL CREASE OPEN SKIN WITH RASH. RECOMMENDATIONS MADE FOR SKIN PROTECTION AND CARE. DISCUSSED WITH NURSING STAFF. IN AGREEMENT WITH PLAN OF CARE. PT IS ON [facility] BED. Addendum: 05/23/20 at 0951 by BRUCE MÉNDEZ WNDNU Amended: Links added.
[2020-05-23 12:00] VITALS: BP 105/60
[2020-05-23] MEDS: INSULIN REGULAR, HUMAN 100 UNIT/ML 3 ML VIAL SQ PRN (12:57)
[2020-05-23 16:00] VITALS: BP 103/64
--- NOTE | 2020-05-23 19:13 | NUR ---
RN NOTE RECEIVED PT IN BED IN SEMI LIZ'S POSITION EATING FOOD. ALERT AND ORIENTED X 4. WITH HI FLOW NASAL CANNULA 40L 80% FIO2 AND NON REBREATHER MASK 15L. O2 SATURATION 98%. RESPIRATIONS UNLABORED, DENIES PAIN OR DISCOMFORT, ON TELE MONITOR, RIGHT UPPER ARM MIDLINE INTACT. PLAN OF CARE DISCUSSED, SAFETY MEASURES IN PLACE PER PROTOCOL, BED ALARM ON, BED LOCKED AND IN LOW POSITION, SIDE RAILS UP X 2, CALL LIGHT WITHIN REACH,
--- NOTE | 2020-05-23 19:25 | NUR ---
PATIENT REMAINS IN BED, NO ACUTE CHANGES IN CONDITION. PATIENT REMAINS UNCHANGED ON HG/NRM SET-UP. ALL SAFETY MEASURES IN PLACE. ALL WOUND TX COMPLETED DIRECTED. ALL NEEDS ENDORSED TO ONCOMING RN.
[2020-05-23 20:00] VITALS: BP 101/55
[2020-05-23] MEDS: SIMVASTATIN 10 MG TABLET PO SCH (21:13)
[2020-05-23] MEDS: LATANOPROST EYE DROP 0.005% 2.5 ML BOTTLE EACHEYE SCH (21:13)
[2020-05-24] VITALS: BP 102/61
[2020-05-24 04:00] VITALS: BP 130/70
[2020-05-24] MEDS: AMOXICILLIN TRIHYDRATE 250 MG CAPSULE PO SCH ×3 (04:03→21:22)
--- NOTE | 2020-05-24 06:55 | NUR ---
RN NOTE NO ACUTE CHANGES OBSERVED OVERNIGHT. PT REMAINS ALERT AND ORIENTED, REPOSITIONED PT FOR COMFORT. REMAINS ON HI FLOW NASAL CANULA 40L 80% FIO2 AND NON REBREATHER 15L. O2 SATURATION WNL, DENIES PAIN OR DISCOMFORT, ON POST TENSIONING IRONWORKER HELPER, RIGHT UPPER ARM MIDLINE INTACT, VILLARREAL CATHETER PATENT AND IN PLACE DRAINING URINE VIA GRAVITY, ALL NEEDS MET AND ATTENDED TO, CALL LIGHT WITHIN REACH, SAFETY MEASURES IN PLACE PER PROTOCOL.
[2020-05-24] MEDS: PANTOPRAZOLE 40 MG TABLET.DR PO SCH (07:27)
--- NOTE | 2020-05-24 07:43 | NUR ---
RN OPENING NOTE PATIENT IS IN BED WITH HOB AT SEMI FOWLERS POSITION. CURRENTLY ON HIGH FLOW AND NRB WITH NO SIGNS OF LABORED BREATHING. PATIENT IS AOX4. VILLARREAL CATHETER IS IN PLACE. GLUTEAL CREASE RASH NOTED. JUMA MIDLINE IS PATENT, INTACT, AND HAS NO SIGNS OF INFILTRATION. BED IS LOCKED IN THE LOWEST POSITION, 3 GUARD RAILS RAISED, AND ALL HOSPITAL SAFETY PRECAUTIONS ARE BEING FOLLOWED. WILL CONTINUE TO MONITOR THROUGHOUT SHIFT.
[2020-05-24] MEDS: BLOOD SUGAR DIAGNOSTIC 1 EACH STRIP VI SCH ×4 (07:56→21:22)
[2020-05-24] MEDS: ASPIRIN 81 MG TAB.CHEW PO SCH (08:23)
[2020-05-24] MEDS: METFORMIN 500 MG TABLET PO SCH ×2 (08:23→16:12)
[2020-05-24] MEDS: LORAZEPAM 0.5 MG TABLET PO SCH ×2 (08:23→16:12)
[2020-05-24] MEDS: TAMSULOSIN 0.4 MG CAP.SR.24H PO SCH (08:24)
[2020-05-24] MEDS: AMLODIPINE BESYLATE 2.5 MG TABLET PO SCH (08:24)
[2020-05-24] MEDS: CARVEDILOL 12.5 MG TABLET PO SCH ×2 (08:24→16:13)
[2020-05-24] MEDS: FINASTERIDE (5 MG) 5 MG TABLET PO SCH (08:24)
[2020-05-24] MEDS: ENOXAPARIN SODIUM 40 MG/0.4 ML DISP.SYRIN SQ SCH (08:27)
[2020-05-24] MEDS: Z GUARD REMEDY 2 OZ OINT TP SCH (09:00)
[2020-05-24] MEDS: CLOTRIMAZOLE 1% 15 GM TUBE TP SCH ×2 (09:00→16:13)
[2020-05-24 10:00] VITALS: BP 131/85
[2020-05-24 12:00] VITALS: BP 115/59
[2020-05-24 16:00] VITALS: BP 124/67
[2020-05-24] MEDS: ACETAMINOPHEN 325 MG TABLET PO PRN (16:58)
[2020-05-24] MEDS: GUAIFENESIN/CODEINE 10 ML UDC PO PRN ×2 (17:13→21:30)
--- NOTE | 2020-05-24 18:44 | NUR ---
RN CLOSING NOTE PATIENT IS IN BED WITH HOB AT SEMI FOWLERS POSITION. CURRENTLY ON HIGH FLOW AND NRB WITH NO SIGNS OF LABORED BREATHING. PATIENT IS AOX4. VILLARREAL CATHETER IS IN PLACE. GLUTEAL CREASE RASH HAS HAD APPROPRIATE WOUND CARE PROVIDED. JUMA MIDLINE IS PATENT, INTACT, AND HAS NO SIGNS OF INFILTRATION. ALL DUE MEDICATIONS WERE GIVEN. BED IS LOCKED IN THE LOWEST POSITION, 3 GUARD RAILS RAISED, AND ALL HOSPITAL SAFETY PRECAUTIONS ARE BEING FOLLOWED. WILL ENDORSE TO RELEASE SPECIALIST RN.
[2020-05-24 20:00] VITALS: BP 120/67
[2020-05-24] MEDS: LATANOPROST EYE DROP 0.005% 2.5 ML BOTTLE EACHEYE SCH (21:22)
[2020-05-24] MEDS: SIMVASTATIN 10 MG TABLET PO SCH (21:22)
[2020-05-24] MEDS: *INSULIN REGULAR(HUMULIN R)HUM 100 UNIT/ML VIAL SQ PRN (21:31)
[2020-05-25] VITALS: BP 125/68
--- NOTE | 2020-05-25 03:47 | NUR ---
TELE-1/DELIVERY DRIVER PT COMPLAINT OF CHEST PAIN. NOTED TO BE IN AFIB / AFLUTTER. [address] CRUZ NOTIFIED. NEW ORDERS TO START PT ON METOPROLOL 50MG BID FIRST DOSE NOW. IF PT HEART RATE DOES NOT DECREASE WITHIN AN HOUR. START PT ON CARDIZEM DRIP PER PROTOCOL. WILL CONTINUE TO MONITOR.
[2020-05-25 04:00] VITALS: BP 138/62
[2020-05-25] MEDS ORDERED: MAG HYDROX/AL HYDROX/SIMETH 30 ML UDC PO PRN (04:00)
[2020-05-25] MEDS: METOPROLOL TARTRATE 50 MG TABLET PO SCH ×3 (04:01→09:04)
[2020-05-25] MEDS: HYDROCODONE/APAP 5/325MG TABLET PO PRN (04:36)
[2020-05-25] MEDS ORDERED: DILTIAZEM HCL 25 MG IV IV ONE (05:00)
[2020-05-25] MEDS ORDERED: DILTIAZEM HCL IV 125 MG in IV NS 0.9% 100 ML IV PRN ×2 (05:00→08:00)
--- NOTE | 2020-05-25 05:01 | NUR ---
TELE-TD/REHAB DEPARTMENT MANAGER METOPROLOL WASN'T EFFECTIVE. CARDIZEM BOLUS AND DRIP STARTED PER PROTOCOL. PT UPGRADED TO TELE-TD. WILL CONTINUE TO MONITOR.
[2020-05-25] MEDS ORDERED: DILTIAZEM HCL 25 MG IV ONE ×2 (05:06→05:07)
--- NOTE | 2020-05-25 05:14 | NUR ---
MED NOTE: CARDIZEM ADMINISTERED UNDER VERIFIED ORDERS.
[2020-05-25] MEDS: AMOXICILLIN TRIHYDRATE 250 MG CAPSULE PO SCH (05:15)
[2020-05-25 06:48] LABS: BASOPHILS # (AUTO) 0.1 /CMM (0.0-0.2); BASOPHILS % (AUTO) 0.9 % (0.0-2.0); EOSINOPHILS % (AUTO) 5.3 % (0.0-6.0); HEMATOCRIT 34 % (39-51); HEMOGLOBIN 10.8 g/dL (13.5-17.5); LYMPHOCYTES # (AUTO) 1.7 /CMM (0.8-4.8); LYMPHOCYTES % (AUTO) 28.1 % (20.0-44.0); MEAN CORPUSCULAR HGB CONC 32 g/dl (31.0-36.0); MEAN CORPUSCULAR VOLUME 84 fL (80-96); MONOCYTES # (AUTO) 0.4 /CMM (0.1-1.30); MONOCYTES % (AUTO) 6.5 % (2.0-12.0); NEUTROPHILS # (AUTO) 3.6 /CMM (1.8-8.9); NEUTROPHILS % (AUTO) 59.2 % (43.0-81.0); PLATELET COUNT (AUTO) 144 /CMM (150-450); RED BLOOD CELL COUNT(AUTO) 4.08 MIL/uL (4.5-6.0)
[2020-05-25 07:04] LABS: CALCIUM, SERUM 8.4 mg/dL (8.5-10.1); CREATININE 0.7 mg/dL (0.6-1.3); POTASSIUM 3.4 mmol/L (3.5-5.1)
--- NOTE | 2020-05-25 07:30 | NUR ---
RN OPENING NORTES PATIENT PRESENT IN BED, A/OX4, HIGH FLOW MASK IN PLACE AND [id number] MASK, TOLERATING SETTINGS WELL, A-FIB AND HR OF 130 ON TELE-MONITOR , CONNECTED ICU MONITOR FOR CONT MONITOR OF HR AND BP, CARDIZEM DRIP RUNNING ACCORDING TO PROTOCOL, R UA MIDLINE INTACT AND PATENT, DRESSING INTACT, VILLARREAL CATH IN PLACE , DRAINING DARK YELLOW URINE BY GRAVITY BED LOCKED, LOWEST POSITION, HOB ELEVATED, CALL LIGHT IN REACH, ROOM CLOSE TO NURSING STATION, WILL CONT TO MONITOR
[2020-05-25] MEDS: BLOOD SUGAR DIAGNOSTIC 1 EACH STRIP VI SCH ×4 (07:53→21:58)
[2020-05-25 08:00] VITALS: BP 100/42
[2020-05-25] MEDS: PANTOPRAZOLE 40 MG TABLET.DR PO SCH (08:06)
[2020-05-25] MEDS: METFORMIN 500 MG TABLET PO SCH ×2 (08:06→17:14)
[2020-05-25] MEDS: ASPIRIN 81 MG TAB.CHEW PO SCH (08:07)
[2020-05-25] MEDS: FINASTERIDE (5 MG) 5 MG TABLET PO SCH (08:07)
[2020-05-25] MEDS: TAMSULOSIN 0.4 MG CAP.SR.24H PO SCH (08:07)
[2020-05-25] MEDS: CARVEDILOL 12.5 MG TABLET PO SCH (08:07)
[2020-05-25] MEDS: LORAZEPAM 0.5 MG TABLET PO SCH ×2 (08:07→17:13)
[2020-05-25] MEDS: AMLODIPINE BESYLATE 2.5 MG TABLET PO SCH (09:00)
[2020-05-25] MEDS: Z GUARD REMEDY 2 OZ OINT TP SCH (09:04)
[2020-05-25] MEDS: CLOTRIMAZOLE 1% 15 GM TUBE TP SCH ×2 (09:04→17:14)
[2020-05-25] MEDS ORDERED: DIGOXIN INJ 0.5 MG/2 ML AMPUL IV ONE (09:30)
[2020-05-25] MEDS ORDERED: POTASSIUM CHLORIDE 20 MEQ TAB.PRT.SR PO ONE (09:30)
[2020-05-25] MEDS ORDERED: AMIODARONE 900 MG in IV D5W 482 ML IV PRN (09:30)
[2020-05-25] MEDS ORDERED: AMIODARONE 450 MG in IV D5W 250 ML IV PRN (09:30)
[2020-05-25] MEDS ORDERED: AMIODARONE 150 MG in IV D5W 100 ML IV ONE (09:30)
[2020-05-25] MEDS: APIXABAN 5 MG TABLET PO SCH ×2 (09:39→17:17)
--- NOTE | 2020-05-25 09:45 | NUR ---
stop Cardizem, start Amiodarone per WISE
[2020-05-25 12:00] VITALS: BP 88/42
[2020-05-25] MEDS: INSULIN REGULAR, HUMAN 100 UNIT/ML 3 ML VIAL SQ PRN (12:11)
--- NOTE | 2020-05-25 13:26 | NUR ---
Patient converted to NSR, BP 98/60, HR 62, contacted MD, Stop Amiodarone, and odored Amio PO BID
[2020-05-25 16:00] VITALS: BP 128/63
[2020-05-25] MEDS: AMIODARONE HCL 200 MG TABLET PO SCH (17:16)
[2020-05-25] MEDS: GUAIFENESIN/CODEINE 10 ML UDC PO PRN ×2 (18:14→23:38)
--- NOTE | 2020-05-25 19:11 | NUR ---
REMAINS IN ROOM, STABLE, NO ACUTE CHANGES NOTED, MEDS GIVEN, COMFORT NEEDS ATTENDED, WILL ENDORSE TO PM SHIFT FOR RAFI
--- NOTE | 2020-05-25 19:45 | NUR ---
RN OPENING NOTES RECEIVED PT IN BED, AWAKE. A/O X4. MAURITANIAN/OCCITAN SPEAKING. PT IS ON 40L 80% HIGH FLOW, WITH 15L NON REBREATHER MASK. TOLERATING WELL SATURATION IS 97% NO SOB OR RESP DISTRESS NOTED. PT ON TELE MONITOR PRESENTS WITH NSR, HR AT THIS TIME IS 81. IV SITE JUMA MIDLINE FLUSHED ASEPTICALLY. PT HAS VILLARREAL CATH DRAINING VIA GRAVITY. PT AT THIS TIME DENIES PAIN, NEEDS ATTENDED. SAFETY MEASURES IN PLACE, HOB ELEVATED. BED IS LOCKED IN LOWEST POSITION WITH BED ALARM ON. SIDE RAILS UP X2. CALL LIGHT WITHIN REACH. WILL CONT TO MONITOR CLOSELY, MAKING FREQUENT ROUNDS THROUGHOUT SHIFT.
[2020-05-25 20:00] VITALS: BP 121/66
[2020-05-25] MEDS: LATANOPROST EYE DROP 0.005% 2.5 ML BOTTLE EACHEYE SCH (21:58)
[2020-05-25] MEDS: SIMVASTATIN 10 MG TABLET PO SCH (21:58)
[2020-05-25] MEDS: *INSULIN REGULAR(HUMULIN R)HUM 100 UNIT/ML VIAL SQ PRN (22:09)
--- NOTE | 2020-05-25 23:50 | NUR ---
PT REQUESTED COUGH MEDICINE AT THIS TIME, ADMINISTERED PRN ORDERED. WILL CONT TO MONITOR
[2020-05-26] VITALS: BP 93/51
[2020-05-26 04:00] VITALS: BP 120/60
[2020-05-26] MEDS: GUAIFENESIN/CODEINE 10 ML UDC PO PRN ×4 (05:35→22:31)
--- NOTE | 2020-05-26 06:38 | NUR ---
RN CLOSING NOTES PT REMAINS IN BED, RESTING. NO SIGNIFICANT CHANGES IN PT CONDITION. PT STILL ON SAME HIGHFLOW 40L 80% AND 15L NRB MASK. SATURATING 98%, NO SOB OR RESP DISTRESS. PT BREATHING EVEN AND UNLABORED. PT RECEIVED ANOTHER PRN COUGH MEDICATION ADMIN. VERBALIZES EFFECTIVENESS. WOUND CARE ORDERED. PT REMAINS AFEBRILE, ALL NEEDS ATTENDED. SAFETY MEASURES IN PLACE, HOB ELEVATED. BED IS LOCKED IN LOWEST POSITION WITH BED ALARM ON. SIDE RAILS UP X2. CALL LIGHT WITHIN REACH. WILL ENDORSE TO AM NURSE FOR CONTINUATION OF CARE.
[2020-05-26 06:53] LABS: BASOPHILS % (AUTO) 0.4 % (0.0-2.0); EOSINOPHILS % (AUTO) 6.9 % (0.0-6.0); HEMATOCRIT 33 % (39-51); HEMOGLOBIN 10.5 g/dL (13.5-17.5); LYMPHOCYTES # (AUTO) 1.3 /CMM (0.8-4.8); MEAN CORPUSCULAR HGB CONC 32 g/dl (31.0-36.0); MEAN CORPUSCULAR VOLUME 84 fL (80-96); MONOCYTES # (AUTO) 0.3 /CMM (0.1-1.30); MONOCYTES % (AUTO) 7.6 % (2.0-12.0); NEUTROPHILS % (AUTO) 52.1 % (43.0-81.0); PLATELET COUNT (AUTO) 138 /CMM (150-450); RED BLOOD CELL COUNT(AUTO) 3.92 MIL/uL (4.5-6.0); WHITE BLOOD COUNT (AUTO) 3.9 K/uL (4.3-11.0)
[2020-05-26 07:23] LABS: CALCIUM, SERUM 8.8 mg/dL (8.5-10.1); CREATININE 0.5 mg/dL (0.6-1.3); POTASSIUM 3.8 mmol/L (3.5-5.1)
--- NOTE | 2020-05-26 07:43 | NUR ---
RECEIVED PATIENT IN BED. NO ACUTE DISTRESS NOTED. PATIENT A & O X4. PATIENT ON HF 40L + NRB 15L, SATURATING WELL AT 96-98%. PATIENT ON CIGARETTE TIPPER, NSR NOTED. PATIENT VILLARREAL CATHETER IN PLACE, INTACT, DRAINING TO GRAVITY. PATIENT JUMA MIDLINE IN PLACE, INTACT, PATENT. PATIENT SAFETY MEASURES MAINTAINED. CALL LIGHT WITHIN REACH. WILL CONTINUE TO MONITOR.
[2020-05-26 08:00] VITALS: BP 125/69
[2020-05-26] MEDS: BLOOD SUGAR DIAGNOSTIC 1 EACH STRIP VI SCH ×4 (08:09→21:14)
[2020-05-26] MEDS: TAMSULOSIN 0.4 MG CAP.SR.24H PO SCH (08:10)
[2020-05-26] MEDS: FUROSEMIDE 40 MG/4 ML VIAL IV SCH ×3 (08:10→15:18)
[2020-05-26] MEDS: PANTOPRAZOLE 40 MG TABLET.DR PO SCH (08:10)
[2020-05-26] MEDS: POTASSIUM CHLORIDE 20 MEQ TAB.PRT.SR PO SCH ×3 (08:11→10:03)
[2020-05-26] MEDS: METOPROLOL TARTRATE 50 MG TABLET PO SCH ×2 (08:11→20:19)
[2020-05-26] MEDS: METFORMIN 500 MG TABLET PO SCH ×2 (08:11→17:33)
[2020-05-26] MEDS: APIXABAN 5 MG TABLET PO SCH ×2 (08:11→17:33)
[2020-05-26] MEDS: ASPIRIN 81 MG TAB.CHEW PO SCH (08:11)
[2020-05-26] MEDS: LORAZEPAM 0.5 MG TABLET PO SCH ×2 (08:12→17:33)
[2020-05-26] MEDS: CLOTRIMAZOLE 1% 15 GM TUBE TP SCH ×2 (08:12→17:34)
[2020-05-26] MEDS: FINASTERIDE (5 MG) 5 MG TABLET PO SCH (08:12)
[2020-05-26] MEDS: AMIODARONE HCL 200 MG TABLET PO SCH ×2 (08:12→17:33)
[2020-05-26] MEDS: Z GUARD REMEDY 2 OZ OINT TP SCH (08:13)
[2020-05-26 12:00] VITALS: BP 137/94
--- NOTE | 2020-05-26 13:40 | NUR ---
RT NOTE TITRATED FIO2 TO 75%. WILSON PARIKH AWARE. NO DISTRESS NOTED AT THIS TIME. WILL MONITOR CLOSELY.
--- NOTE | 2020-05-26 15:32 | NUR ---
RT NOTE TITRATED FIO2 TO 70%. NO DISTRESS NOTED. RN KATI AWARE. WILL MONITOR.
[2020-05-26 16:00] VITALS: BP 120/53
--- NOTE | 2020-05-26 18:26 | NUR ---
PATIENT IN BED. NO ACUTE DISTRESS NOTED. PATIENT A & O X4. PATIENT ON HF 40L + NRB 15L, SATURATING WELL AT 96-98%. PATIENT ON AUDOGRAPH OPERATOR, NSR NOTED. PATIENT VILLARREAL CATHETER IN PLACE, INTACT, DRAINING TO GRAVITY. PATIENT JUMA MIDLINE IN PLACE, INTACT, PATENT. PATIENT SAFETY MEASURES MAINTAINED. CALL LIGHT WITHIN REACH. WILL ENDORSE PLAN OF CARE TO ONCOMING SHIFT
--- NOTE | 2020-05-26 19:20 | NUR ---
RN OPENING NOTE RECEIVED PATIENT IN BED RESTING ALERT ORIENTED X4 VERBALLY RESPONSIVE ON 40L HIGH FLOW OXYGEN FIO2:75% AND 15L NON REBREATHER MASK O2:96% IV SITE IS ON RIGHT UPPER ARM MIDLINE INTACT PATENT VILLARREAL CATHETER IN PLACE URINE DRAINING YELLOW/CLEAR BY GRAVITY,CALL LIGHT WITHIN REACH,SAFETY MEASURE IMPLEMENT CONTINUE TO MONITOR.
[2020-05-26 20:00] VITALS: BP 132/72
[2020-05-26] MEDS: *INSULIN REGULAR(HUMULIN R)HUM 100 UNIT/ML VIAL SQ PRN (21:15)
[2020-05-26] MEDS: SIMVASTATIN 10 MG TABLET PO SCH (21:46)
[2020-05-26] MEDS: LATANOPROST EYE DROP 0.005% 2.5 ML BOTTLE EACHEYE SCH (21:57)
[2020-05-27] VITALS: BP 116/59
[2020-05-27] MEDS: GUAIFENESIN/CODEINE 10 ML UDC PO PRN ×5 (02:37→22:15)
[2020-05-27 04:00] VITALS: BP 116/59
[2020-05-27] MEDS: HYDROCODONE/APAP 5/325MG TABLET PO PRN (05:30)
[2020-05-27 06:28] LABS: BASOPHILS % (AUTO) 0.4 % (0.0-2.0); EOSINOPHILS % (AUTO) 7.4 % (0.0-6.0); HEMATOCRIT 34 % (39-51); HEMOGLOBIN 10.7 g/dL (13.5-17.5); LYMPHOCYTES % (AUTO) 39.7 % (20.0-44.0); MEAN CORPUSCULAR HGB CONC 31 g/dl (31.0-36.0); MEAN CORPUSCULAR VOLUME 84 fL (80-96); MONOCYTES # (AUTO) 0.3 /CMM (0.1-1.30); MONOCYTES % (AUTO) 6.4 % (2.0-12.0); NEUTROPHILS # (AUTO) 2.3 /CMM (1.8-8.9); NEUTROPHILS % (AUTO) 46.1 % (43.0-81.0); PLATELET COUNT (AUTO) 152 /CMM (150-450); RED BLOOD CELL COUNT(AUTO) 4.05 MIL/uL (4.5-6.0); WHITE BLOOD COUNT (AUTO) 5.1 K/uL (4.3-11.0)
[2020-05-27 06:44] LABS: ALBUMIN 2.3 g/dL (3.4-5.0); BILIRUBIN,TOTAL 0.6 mg/dL (0.2-1.0); CALCIUM, SERUM 9.1 mg/dL (8.5-10.1); CREATININE 0.7 mg/dL (0.6-1.3); MAGNESIUM 1.7 mg/dL (1.8-2.4); PHOSPHORUS 2.9 mg/dL (2.5-4.9); POTASSIUM 3.8 mmol/L (3.5-5.1); TOTAL PROTEIN, SERUM 6.8 g/dL (6.4-8.2)
--- NOTE | 2020-05-27 06:54 | NUR ---
RN CLOSING NOTE PATIENT REMAINS ON ALERT ORIENTED X4 VERBALLY RESPONSIVE NO SOB NOTED,ON HIGH FLOW OXYGEN 40L AND 15L NON REBREATHER MASK,O2:94% ALL DUE MEDS GIVEN MD ORDERED KEPT CLEAN AND DRY ALL THE TIME KEPT COMFORTABLE,KEPT CALL LIGHT WITHIN REACH,ALL NEEDS MET,ENDORSE NEXT COMING SHIFT FOR CONTINUATION OF CARE.
--- NOTE | 2020-05-27 07:41 | NUR ---
RT NOTE TITRATED PT OFF NONREBREATHER AT THIS TIME. PT RESTING COMFORTABLY. WILL MONITOR.
--- NOTE | 2020-05-27 07:58 | NUR ---
ARTIST CONSULTANT NOTE PATIENT ON ALERT ORIENTED X4 VERBALLY RESPONSIVE NO SOB NOTED,ON HIGH FLOW OXYGEN 40L AND 15L OFF NON REBREATHER MASK AT THIS TIME ,O2 88% AWAITING FOR BLOOD GAS TO DO BY RT KEPT CLEAN AND DRY ALL THE TIME KEPT COMFORTABLE,KEPT CALL LIGHT WITHIN REACH,ALL NEEDS MET,ENDORSE NEXT COMING SHIFT FOR CONTINUATION OF CAREON TELE MONITOR SR HR 98 .JUMA MID LINE IN PLACE BED IN LOWEST AND LOCKED POSITION
[2020-05-27 08:00] VITALS: BP 138/59
[2020-05-27] MEDS: FINASTERIDE (5 MG) 5 MG TABLET PO SCH (08:09)
[2020-05-27] MEDS: METFORMIN 500 MG TABLET PO SCH ×2 (08:09→16:09)
[2020-05-27] MEDS: TAMSULOSIN 0.4 MG CAP.SR.24H PO SCH (08:09)
[2020-05-27] MEDS: LORAZEPAM 0.5 MG TABLET PO SCH ×2 (08:09→17:02)
[2020-05-27] MEDS: ASPIRIN 81 MG TAB.CHEW PO SCH (08:09)
[2020-05-27] MEDS: APIXABAN 5 MG TABLET PO SCH ×2 (08:10→16:10)
[2020-05-27] MEDS: PANTOPRAZOLE 40 MG TABLET.DR PO SCH (08:11)
[2020-05-27] MEDS: METOPROLOL TARTRATE 50 MG TABLET PO SCH ×2 (08:11→20:51)
[2020-05-27] MEDS: AMIODARONE HCL 200 MG TABLET PO SCH ×2 (08:12→16:09)
[2020-05-27] MEDS: CLOTRIMAZOLE 1% 15 GM TUBE TP SCH ×2 (08:13→16:14)
[2020-05-27] MEDS: Z GUARD REMEDY 2 OZ OINT TP SCH (08:13)
[2020-05-27] MEDS: BLOOD SUGAR DIAGNOSTIC 1 EACH STRIP VI SCH ×4 (08:23→21:14)
[2020-05-27 08:46] LABS: ABG OXYGEN SATURATION 91.6 % (92.0-98.5); ABG PCO2 66.5 mmHg (35.0-45.0); ABG PH 7.389 (7.350-7.450); ABG PO2 62.9 mmHg (75.0-100.0); AaDO2 583.6 mmHg; COHb 1.6 % (0.5-1.5); MetHb 0.3 % (0.0-1.5); O2Hb 89.9 % (94.0-97.0); SITE, ABG Right Radial; VENT MODE, BG hfnc 40L 75% +nrb
[2020-05-27] MEDS ORDERED: BISACODYL (5 MG) 5 MG TABLET.DR PO ONE (09:00)
--- NOTE | 2020-05-27 09:57 | NUR ---
COMPOSITE ASSEMBLER NOTE SEEN BY DR CRUZ NOTIFIED THAT LAST NIGHT HAS EPISODES AFIB FOR 1 HOUR BUT NOW BACK TO SR OK TO CONT PREVIOUS MEDS ALSO SEEN BY P T ABLE TO SIT ON CHAIR , RT AT BEDSIDE ABG DONE RESULT GIVEN TO DR CHILDERS , WITH NO CHANCE WITH O2, WILL MONITOR
[2020-05-27 12:00] VITALS: BP 124/74
[2020-05-27] MEDS: INSULIN REGULAR, HUMAN 100 UNIT/ML 3 ML VIAL SQ PRN ×2 (12:01→17:07)
[2020-05-27] MEDS: Magnesium 1GM/D5W 100ML PREMIX 100 ML IV SCH ×2 (12:06→13:10)
--- NOTE | 2020-05-27 12:16 | NUR ---
telephone surveyor note back to bed saturation 95% c\o coughing, Robitussin po given as ordered
--- NOTE | 2020-05-27 15:17 | NUR ---
RT NOTE TITRATED FIO2 TO 70%. RN MARVEL AVILA. NO DISTRESS NOTED.
[2020-05-27 16:00] VITALS: BP 126/56
--- NOTE | 2020-05-27 18:35 | NUR ---
MANAGEMENT ANALYST NOTE PATIENT IN BED ALERT ORIENTED WITH HIGH FLOW AND NONREBREATHER MASK TOLERATED SATURATION AT THIS TIME 96%, ON TELE MONITOR SR HR 96, WITH VILLARREAL CATH TO GRAVITY , NO C\O COUGH AFTER ROBITUSSIN WAS GIVEN EARLIER , RT UPPER ARM MID LINE IN PLACE AND FLUSHED WE'LL,DRESSING CHANGED ,KEEP AFFECTED AREA CLEAN AND DRY , ALL NEEDS ATTENDED, NOT IN DISTRESS WILL CONT TO MONITOR CLOSELY, CALL LIGHT WITHIN REACH
[2020-05-27 20:00] VITALS: BP 137/85
[2020-05-27] MEDS: SIMVASTATIN 10 MG TABLET PO SCH (21:03)
[2020-05-27] MEDS: *INSULIN REGULAR(HUMULIN R)HUM 100 UNIT/ML VIAL SQ PRN (21:15)
[2020-05-27] MEDS ORDERED: LATANOPROST EYE DROP 0.005% 2.5 ML BOTTLE ONE (22:08)
[2020-05-27] MEDS: LATANOPROST EYE DROP 0.005% 2.5 ML BOTTLE EACHEYE SCH (22:15)
[2020-05-28] VITALS: BP 115/75
--- NOTE | 2020-05-28 02:15 | NUR ---
RN NOTES, ENDORSED PATIENT TO BRANDEE RN FOR CONTINUATION OF CARE, PT IN STABLE CONDITION.
--- NOTE | 2020-05-28 02:20 | NUR ---
ROAD MENDER NOTE: RECEIVED REPORT FROM RACHAEL, PATIENT RESTING IN BED, NO ACUTE DISTRESS NOTED. BREATHING EVEN AND UNLABORED, CURRENTLY ON HIGH FLOW AT 70% WITH [address] 02 SAT 96%. VILLARREAL CATHETER IN PLACE. MIDLINE TO JUMA IN PLACE. BED LOCKED AND IN LOWEST POSITION, CALL LIGHT IN REACH, WILL CONTINUE TO MONITOR THROUGHOUT SHIFT.
[2020-05-28 04:40] VITALS: BP 104/51
[2020-05-28] MEDS: GUAIFENESIN/CODEINE 10 ML UDC PO PRN ×4 (04:56→23:28)
--- NOTE | 2020-05-28 06:40 | NUR ---
MIGRATION SPECIALIST NOTE: PATIENT RESTING IN BED, NO ACUTE DISTRESS NOTED. BREATHING EVEN AND UNLABORED, CURRENTLY ON HIGH FLOW AT 70% WITH [address] 02 SAT 96%. VILLARREAL CATHETER IN PLACE. MIDLINE TO JUMA IN PLACE. PATIENT BLOOD SUGAR LEVEL 103MG/DL, NO INSULIN NEEDED PER SLIDING SCALE. BED LOCKED AND IN LOWEST POSITION, CALL LIGHT IN REACH, WILL ENDORSE TO DAY NURSE TO CONTINUE WITH PLAN OF CARE.
[2020-05-28 06:49] LABS: CALCIUM, SERUM 8.7 mg/dL (8.5-10.1); CHLORIDE 103 mmol/L (98-107); CREATININE 0.7 mg/dL (0.6-1.3); GLUCOSE 113 mg/dL (74-106); MAGNESIUM 2.2 mg/dL (1.8-2.4); POTASSIUM 3.7 mmol/L (3.5-5.1); SODIUM SERUM 143 mmol/L (136-145); UREA NITROGEN, BLOOD 18 mg/dL (7-18)
[2020-05-28] MEDS: BLOOD SUGAR DIAGNOSTIC 1 EACH STRIP VI SCH ×4 (06:56→21:07)
[2020-05-28 06:58] LABS: CARBON DIOXIDE 44 mmol/L (21-32)
--- NOTE | 2020-05-28 07:10 | NUR ---
FIGURE SKATER NOTE: RECEIVED CALL FROM LAB FOR CRITICAL LAB VALUE OF C02 AT 44. WILL CONTACT EPIC AND ENDORSE TO DAY NURSE.
--- NOTE | 2020-05-28 07:15 | NUR ---
RN OPENING NOTES RECEIVED PT IN BED, A/O X4. CURRENTLY ON HIGH FLOW AT 70% WITH 15 LPM NONREBREATHER. O2 SAT @96%. NO SOB OR ANY S/SX OF ACUTE DISTRESS NOTED. VILLARREAL CATHETER IN PLACE. JUMA MIDLINE INTACT AND PATENT. SAFETY MEASURES IN PLACE. CALL LIGHT WITHIN REACH. BED LOCKED AND IN LOWEST POSITION WITH SIDE RAILS UP X2. WILL CONTINUE TO MONITOR.
[2020-05-28 08:00] VITALS: BP 123/66
[2020-05-28] MEDS: LORAZEPAM 0.5 MG TABLET PO SCH ×2 (08:52→16:51)
[2020-05-28] MEDS: PANTOPRAZOLE 40 MG TABLET.DR PO SCH (08:52)
[2020-05-28] MEDS: ASPIRIN 81 MG TAB.CHEW PO SCH (08:52)
[2020-05-28] MEDS: AMIODARONE HCL 200 MG TABLET PO SCH ×2 (08:53→16:51)
[2020-05-28] MEDS: TAMSULOSIN 0.4 MG CAP.SR.24H PO SCH (08:53)
[2020-05-28] MEDS: METFORMIN 500 MG TABLET PO SCH ×2 (08:53→16:50)
[2020-05-28] MEDS: CLOTRIMAZOLE 1% 15 GM TUBE TP SCH ×2 (08:54→16:51)
[2020-05-28] MEDS: METOPROLOL TARTRATE 50 MG TABLET PO SCH ×2 (08:54→21:07)
[2020-05-28] MEDS: Z GUARD REMEDY 2 OZ OINT TP SCH (08:54)
[2020-05-28] MEDS: FINASTERIDE (5 MG) 5 MG TABLET PO SCH (08:54)
[2020-05-28] MEDS: APIXABAN 5 MG TABLET PO SCH ×2 (08:56→16:54)
[2020-05-28] MEDS ORDERED: NA PHOS,M-B/NA PHOS,DI-BA 1 EA ENEMA RC ONE (09:30)
[2020-05-28] MEDS ORDERED: BISACODYL (5 MG) 5 MG TABLET.DR PO ONE (09:30)
[2020-05-28] MEDS: INSULIN REGULAR, HUMAN 100 UNIT/ML 3 ML VIAL SQ PRN ×2 (11:57→17:34)
--- NOTE | 2020-05-28 11:59 | NUR ---
RN NOTES BS OF 125, NO INSULIN COVERAGE.
[2020-05-28 12:00] VITALS: BP 114/56
[2020-05-28 16:00] VITALS: BP 128/39
--- NOTE | 2020-05-28 17:35 | NUR ---
RN NOTES BS OF 91, NO INSULIN COVERAGE.
--- NOTE | 2020-05-28 18:43 | NUR ---
RN CLOSING NOTES NO SIGNIFICANT CHANGES THROUGHOUT THE SHIFT. IN STABLE CONDITION. NO SOB. NO PAIN REPORTED AT THIS TIME. ALL DUE MEDS GIVEN. NEEDS ATTENDED. SAFETY MEASURES STILL IN PLACE. WILL ENDORSE TO NIGHT NURSE FOR RAFI.
--- NOTE | 2020-05-28 19:45 | NUR ---
RN OPENING NOTES RECEIVED PT AWAKE A/O X4, MOZAMBICAN SLOVENIAN SPEAKING. PT IS ON HIGH FLOW 40L FIO2 80% SATURATING WELL 98% NO RESP DISTRESS NOTED OR SOB. NONREBREATHER 15L MASK UTILIZED WHEN O2 SAT IS LOWER THAN 85% PT IS INDEPENDENT, VERBALIZES UNDERSTANDING WHEN TO PUT ON MASK. JUMA MIDLINE FLUSHED AND INTACT. PT HAS VILLARREAL CATH DRAINING VIA GRAVITY. SAFETY MEASURES IN PLACE. HOB ELEVATED TOLERATED. BED LOCKED IN LOWEST POSITION. SIDE RAILS UP X2. CALL LIGHT WITHIN REACH. PT DENIES PAIN. AFEBRILE. NEEDS ATTENDED. WILL CONT TO MONITOR CLOSELY.
[2020-05-28 20:00] VITALS: BP 103/56
[2020-05-28] MEDS: SIMVASTATIN 10 MG TABLET PO SCH (21:07)
[2020-05-28] MEDS: LATANOPROST EYE DROP 0.005% 2.5 ML BOTTLE EACHEYE SCH (21:09)
[2020-05-28] MEDS: *INSULIN REGULAR(HUMULIN R)HUM 100 UNIT/ML VIAL SQ PRN (21:28)
[2020-05-29] VITALS: BP 121/60
--- NOTE | 2020-05-29 03:21 | NUR ---
RT JEFFRY AT BEDSIDE, NONREBREATHER OFF. HIGH FLOW FIO2 DECREASED TO 70% O2 SATURATION IS 96% AT THIS TIME. PT TOLERATING WELL. NO SOB NO RESP DISTRESS NOTED.
[2020-05-29 04:00] VITALS: BP 125/71
--- NOTE | 2020-05-29 06:32 | NUR ---
RN CLOSING NOTES NO CHANGE IN CONDITION, PT STILL REMAINS WITH HF 40L FIO2 70% AND OCCASIONALLY WITH NONREBREATHER 15L WHEN NEEDED. WOUND TX DONE. BED BATH DONE. ALL DUE MEDS GIVEN. PT AFEBRILE. DENIES PAIN. NEEDS ATTENDED. SAFETY MEASURES IN PLACE. HOB ELEVATED. BED LOCKED IN LOWEST POSITION.BED ALARM ON. CALL LIGHT WITHIN REACH. WILL ENDORSE TO AM NURSE FOR CONTINUATION OF CARE.
[2020-05-29] MEDS: BLOOD SUGAR DIAGNOSTIC 1 EACH STRIP VI SCH ×4 (07:30→22:15)
[2020-05-29 08:00] VITALS: BP 141/83
--- NOTE | 2020-05-29 08:00 | NUR ---
RN NOTES BS OF 90, NO INSULIN COVERAGE.
[2020-05-29] MEDS: METFORMIN 500 MG TABLET PO SCH ×2 (08:29→17:06)
[2020-05-29] MEDS: PANTOPRAZOLE 40 MG TABLET.DR PO SCH (08:29)
[2020-05-29] MEDS: ASPIRIN 81 MG TAB.CHEW PO SCH (08:29)
[2020-05-29] MEDS: FINASTERIDE (5 MG) 5 MG TABLET PO SCH (08:29)
[2020-05-29] MEDS: LORAZEPAM 0.5 MG TABLET PO SCH ×2 (08:29→17:06)
[2020-05-29] MEDS: TAMSULOSIN 0.4 MG CAP.SR.24H PO SCH (08:30)
[2020-05-29] MEDS: METOPROLOL TARTRATE 50 MG TABLET PO SCH ×2 (08:30→22:07)
[2020-05-29] MEDS: AMIODARONE HCL 200 MG TABLET PO SCH ×2 (08:30→17:07)
[2020-05-29] MEDS: APIXABAN 5 MG TABLET PO SCH ×2 (08:32→17:08)
[2020-05-29] MEDS: CLOTRIMAZOLE 1% 15 GM TUBE TP SCH ×2 (08:33→17:07)
[2020-05-29] MEDS: Z GUARD REMEDY 2 OZ OINT TP SCH (08:33)
[2020-05-29] MEDS: INSULIN REGULAR, HUMAN 100 UNIT/ML 3 ML VIAL SQ PRN ×3 (08:45→17:57)
[2020-05-29 12:00] VITALS: BP 108/66
--- NOTE | 2020-05-29 12:13 | NUR ---
RN NOTES BS OF 111, NO INSULIN COVERAGE.
[2020-05-29] MEDS: GUAIFENESIN/CODEINE 10 ML UDC PO PRN ×3 (12:46→22:06)
[2020-05-29 16:00] VITALS: BP 115/66
--- NOTE | 2020-05-29 19:47 | NUR ---
RN NOTE PATIENT A/OX4, ABLE TO MAKE NEEDS KNOWN. ON HF 40L FIO2 70% AND 15L NRB PRN. O2 SAT WNL. NO SOB OR ANY RESPIRATORY DISTRESS. WITH JUMA MIDLINE PATENT AND INTACT. ALL NEEDS ANTICIPATED. CALL LIGHT WITHIN REACH. BED LOCKED AND IN LOWEST POSITION. WILL CONTINUE TO MONITOR.
[2020-05-29 20:00] VITALS: BP 130/70
--- NOTE | 2020-05-29 22:00 | NUR ---
BLOOD SUGAR 98, NO INSULIN COVERAGE GIVEN PER ORDER.
[2020-05-29] MEDS: SIMVASTATIN 10 MG TABLET PO SCH (22:06)
[2020-05-29] MEDS: *INSULIN REGULAR(HUMULIN R)HUM 100 UNIT/ML VIAL SQ PRN (22:15)
[2020-05-29] MEDS: LATANOPROST EYE DROP 0.005% 2.5 ML BOTTLE EACHEYE SCH (22:17)
[2020-05-30] VITALS: BP 111/63
[2020-05-30] MEDS: GUAIFENESIN/CODEINE 10 ML UDC PO PRN ×5 (03:04→21:43)
[2020-05-30 04:00] VITALS: BP 105/59
--- NOTE | 2020-05-30 07:04 | NUR ---
RN NOTE PATIENT A/OX4, ABLE TO MAKE NEEDS KNOWN. ON HF 40L FIO2 70% AND 15L NRB PRN. O2 SAT WNL. NO SOB OR ANY RESPIRATORY DISTRESS. WITH JUMA MIDLINE PATENT AND INTACT. NO SIGNIFICANT CHANGES. ALL NEEDS ATTENDED PROMPTLY. CALL LIGHT WITHIN REACH. BED LOCKED AND IN LOWEST POSITION. WILL ENDORSE TO AM SHIFT.
--- NOTE | 2020-05-30 07:30 | NUR ---
RN NOTE PATIENT A/OX4, ABLE TO MAKE NEEDS KNOWN. ON HF 40L FIO2 70% AND 15L NRB PRN. O2 SAT WNL. NO SOB OR ANY RESPIRATORY DISTRESS. WITH JUMA MIDLINE PATENT AND INTACT. ALL NEEDS ANTICIPATED. CALL LIGHT WITHIN REACH. BED LOCKED AND IN LOWEST POSITION. WILL CONTINUE TO MONITOR AND PROVIDE TREATMENT.
[2020-05-30 08:00] VITALS: BP 121/64
[2020-05-30] MEDS: ASPIRIN 81 MG TAB.CHEW PO SCH (08:16)
[2020-05-30] MEDS: PANTOPRAZOLE 40 MG TABLET.DR PO SCH (08:16)
[2020-05-30] MEDS: LORAZEPAM 0.5 MG TABLET PO SCH ×2 (08:16→17:01)
[2020-05-30] MEDS: BLOOD SUGAR DIAGNOSTIC 1 EACH STRIP VI SCH ×4 (08:16→21:50)
[2020-05-30] MEDS: AMIODARONE HCL 200 MG TABLET PO SCH ×2 (08:17→17:01)
[2020-05-30] MEDS: FINASTERIDE (5 MG) 5 MG TABLET PO SCH (08:17)
[2020-05-30] MEDS: TAMSULOSIN 0.4 MG CAP.SR.24H PO SCH (08:17)
[2020-05-30] MEDS: Z GUARD REMEDY 2 OZ OINT TP SCH (08:18)
[2020-05-30] MEDS: CLOTRIMAZOLE 1% 15 GM TUBE TP SCH ×2 (08:18→17:19)
[2020-05-30] MEDS: METFORMIN 500 MG TABLET PO SCH ×2 (08:18→17:01)
[2020-05-30] MEDS: METOPROLOL TARTRATE 50 MG TABLET PO SCH ×2 (08:18→21:42)
[2020-05-30] MEDS: APIXABAN 5 MG TABLET PO SCH ×2 (08:21→17:02)
[2020-05-30 12:00] VITALS: BP 113/56
--- NOTE | 2020-05-30 14:00 | NUR ---
RECEIVED REPORT FROM WILSON TILLMAN. WILL CONTINUE TO MONITOR FOR REMAINDER OF SHIFT.
--- NOTE | 2020-05-30 14:00 | NUR ---
REPORT GIVEN TO WILSON WASSERMAN FOR RAFI.
[2020-05-30 16:00] VITALS: BP 118/61
--- NOTE | 2020-05-30 18:36 | NUR ---
RN CLOSING NOTE PATIENT IS CURRENTLY IN BED WITH HOB AT SEMI FOWLERS POSITION. PATIENT IS AOX4. CURRENTLY ON NRB AND HIGH FLOW WITH NO SIGNS OF LABORED BREATHING. VILLARREAL CATHETER IS IN PLACE. JUMA MIDLINE IS PATENT, INTACT, AND HAS NO SIGNS OF INFILTRATION. BED IS LOCKED IN THE LOWEST POSITION, 3 GUARD RAILS RAISED, CALL ELY WITHIN REACH AND ALL HOSPITAL SAFETY PRECAUTIONS ARE BEING FOLLOWED. ALL DUE MEDS GIVEN DURING SHIFT. WILL ENDORSE TO CLINIC CMA RN FOR RAFI.
[2020-05-30 20:00] VITALS: BP 133/52
--- NOTE | 2020-05-30 20:00 | NUR ---
RN OPENING NOTES RECEIVED PT IN BED AWAKE , A/O X4. CURRENTLY ON HIGH FLOW AT 40LITERS 70% [id number] 15 LPM NONREBREATHER. O2 SAT @96%. NO SOB OR ANY S/SX OF ACUTE DISTRESS NOTED. VILLARREAL CATHETER IN PLACE. JUMA MIDLINE INTACT AND PATENT. SAFETY MEASURES IN PLACE. CALL LIGHT WITHIN REACH. BED LOCKED AND IN LOWEST POSITION WITH SIDE RAILS UP X2. WILL CONTINUE TO MONITOR.
[2020-05-30] MEDS: SIMVASTATIN 10 MG TABLET PO SCH (21:43)
[2020-05-30] MEDS: *INSULIN REGULAR(HUMULIN R)HUM 100 UNIT/ML VIAL SQ PRN (21:50)
[2020-05-30] MEDS: LATANOPROST EYE DROP 0.005% 2.5 ML BOTTLE EACHEYE SCH (21:57)
--- NOTE | 2020-05-30 22:00 | NUR ---
OPERATING ROOM SURGICAL TECHNOLOGIST NOTES BLOOD SUGAR AT 10PM IS 106 NO INSULIN COVERAGE GIVEN PER SLIDING SCALE, WILL CONTINUE TO MONITOR PTS.
[2020-05-31] VITALS: BP 116/72
[2020-05-31] MEDS: GUAIFENESIN/CODEINE 10 ML UDC PO PRN ×4 (02:07→17:09)
[2020-05-31 04:00] VITALS: BP 127/51
--- NOTE | 2020-05-31 05:33 | NUR ---
PATIENT RECEIVED ON VAPOTHERM HFNC 40L 70% WITH NRB MASK, TOLERATING WITH NO DISTRESS/SOB NOTED, AND REMAINED ALERT AND ORIENTED. AMBU BAG AT BEDSIDE. VAPOTHERM ALARM AUDIBLE AND VISIBLE. CONTINUE TO MONITOR PATIENT. Addendum: 05/31/20 at 0545 by NAVI CROOKS RT Amended: Links added.
--- NOTE | 2020-05-31 07:11 | NUR ---
RN CLOSING NOTE: PATIENT REMAINS IN ROOM RESTING COMFORTABLY.NO SIGNS OF RESPIRATORY DISTRESS PATIENT STILL ON;HI FLOW 40 LITERS 70 % FI02 , NRB 15 LITERS PRN ,TOLERATTING WELL SATURATING @ 95% SP02.PATIENT IS CLEAN , DRY AND COMFORTABLE THROUGHOUT THE SHIFT. ALL DUE MEDS GIVEN ORDERED ; PATIENT TOLERATED WELL. SAFETY MEASURES IMPLEMENTED, BED IN LOWEST POSITION, LOCKED, SIDE RAILS UP, CALL LIGHT WITHIN REACH. PATIENT ENDORSED TO INCOMING SHIFT RN WITH STABLE VITAL SIGN AND FOR CONTINUITY OF CARE
[2020-05-31] MEDS: BLOOD SUGAR DIAGNOSTIC 1 EACH STRIP VI SCH ×4 (07:30→21:25)
--- NOTE | 2020-05-31 07:31 | NUR ---
RT NOTE PT RECEIVED ON HIGH FLOW NASAL CANNULA ON 40LPM @ 70%. NONREBREATHER MASK OFF. NO DISTRESS NOTED AT THIS TIME. WILL CONTINUE TO MONITOR CLOSELY. Addendum: 05/31/20 at 0733 by LISA GAINES RT Amended: Links added.
--- NOTE | 2020-05-31 07:45 | NUR ---
RN OPENING NOTE PATIENT IS CURRENTLY IN BED WITH HOB AT SEMI FOWLERS POSITION. PATIENT IS AOX4. CURRENTLY ON HIGH FLOW WITH NO SIGNS OF LABORED BREATHING. VILLARREAL CATHETER IS IN PLACE. JUMA MIDLINE IS PATENT, INTACT, AND HAS NO SIGNS OF INFILTRATION. BED IS LOCKED IN THE LOWEST POSITION, 3 GUARD RAILS RAISED, CALL ELY WITHIN REACH AND ALL HOSPITAL SAFETY PRECAUTIONS ARE BEING FOLLOWED. BED IS LOCKED IN THE LOWEST POSITION, 3 GUARD RAILS RAISED, CALL ELY WITHIN REACH, AND ALL HOSPITAL SAFETY PRECAUTIONS ARE BEING FOLLOWED. WILL CONTINUE TO MONITOR THROUGHOUT SHIFT.
[2020-05-31 08:00] VITALS: BP 136/70
[2020-05-31] MEDS: PANTOPRAZOLE 40 MG TABLET.DR PO SCH (08:40)
[2020-05-31] MEDS: FINASTERIDE (5 MG) 5 MG TABLET PO SCH (08:41)
[2020-05-31] MEDS: AMIODARONE HCL 200 MG TABLET PO SCH ×2 (08:41→17:09)
[2020-05-31] MEDS: LORAZEPAM 0.5 MG TABLET PO SCH ×2 (08:41→17:10)
[2020-05-31] MEDS: METFORMIN 500 MG TABLET PO SCH ×2 (08:41→17:11)
[2020-05-31] MEDS: TAMSULOSIN 0.4 MG CAP.SR.24H PO SCH (08:41)
[2020-05-31] MEDS: METOPROLOL TARTRATE 50 MG TABLET PO SCH ×2 (08:42→20:47)
[2020-05-31] MEDS: APIXABAN 5 MG TABLET PO SCH ×2 (08:43→17:00)
[2020-05-31] MEDS: ASPIRIN 81 MG TAB.CHEW PO SCH (08:43)
[2020-05-31] MEDS: Z GUARD REMEDY 2 OZ OINT TP SCH (09:09)
[2020-05-31] MEDS: CLOTRIMAZOLE 1% 15 GM TUBE TP SCH ×2 (09:09→17:11)
[2020-05-31 12:00] VITALS: BP 109/57
[2020-05-31] MEDS: INSULIN REGULAR, HUMAN 100 UNIT/ML 3 ML VIAL SQ PRN (12:29)
--- NOTE | 2020-05-31 13:32 | NUR ---
RT NOTE PT FOUND WITH NONBREATHER MASK ON DUE TO DESATURATION. PT TOLERATING WELL. WILL MONITOR. Addendum: 05/31/20 at 1333 by LISA GAINES RT Amended: Links added.
--- NOTE | 2020-05-31 15:25 | NUR ---
RT NOTE TITRATED FIO2 TO 65%. PT TOLERATING WELL. WILSON WASSERMAN NOTIFIED AND IS AWARE. NO DISTRESS NOTED. Addendum: 05/31/20 at 1526 by LISA GAINES RT Amended: Links added.
[2020-05-31 16:00] VITALS: BP 112/58
--- NOTE | 2020-05-31 19:15 | NUR ---
RECEIVED PT ON BED AWAKE ON HIGH FLOW 40L 65% FIO2 SPO2 95% NO SIGN AND SYMPTOMS OF RESPIRATORY DISTRESS TELE MONITOR READS SINUS RHYTHM 85, HAVE JUMA MIDLINE PATENT AND FLUSHED, DRESSING CLEAN DRY AND INTACT BED ON LOWEST POSITION AND LOCKED SIDE RAILS UP X2 CALL LIGHT WITHIN REACH WILL CONT TO MONITOR
--- NOTE | 2020-05-31 19:30 | NUR ---
RN CLOSING NOTE PATIENT IS CURRENTLY IN BED WITH HOB AT SEMI FOWLERS POSITION. PATIENT IS AOX4. CURRENTLY ON HIGH FLOW WITH NO SIGNS OF LABORED BREATHING. VILLARREAL CATHETER IS IN PLACE. JUMA MIDLINE IS PATENT, INTACT, AND HAS NO SIGNS OF INFILTRATION. BED IS LOCKED IN THE LOWEST POSITION, 3 GUARD RAILS RAISED, CALL ELY WITHIN REACH AND ALL HOSPITAL SAFETY PRECAUTIONS ARE BEING FOLLOWED. ALL MEDS GIVEN DURING SHIFT AND PATIENT REMAINED STABLE. ENDORSED TO SEPTIC TANK SETTER RN.
[2020-05-31 20:00] VITALS: BP 111/64
[2020-05-31] MEDS: SIMVASTATIN 10 MG TABLET PO SCH (21:16)
[2020-05-31] MEDS: LATANOPROST EYE DROP 0.005% 2.5 ML BOTTLE EACHEYE SCH (21:16)
[2020-05-31] MEDS: *INSULIN REGULAR(HUMULIN R)HUM 100 UNIT/ML VIAL SQ PRN (21:26)
--- NOTE | 2020-05-31 23:40 | NUR ---
PT FOUND ON NONREBREATHER AT THIS TIME. PT REQUESTED TO INCREASE THE FIO2 TO 70% WHILE HE SLEEPS AND TO LOWER BACK TO 65% IN THE MORNING. NO RESP DISTRESS NOTED AT THIS TIME. RN AWARE. Addendum: 05/31/20 at 2342 by JEFFRY BAKER RT Amended: Links added.
[2020-06-01] VITALS: BP 145/82
[2020-06-01] MEDS: GUAIFENESIN/CODEINE 10 ML UDC PO PRN ×3 (00:16→17:05)
[2020-06-01 04:00] VITALS: BP 133/73
[2020-06-01] MEDS: ACETAMINOPHEN 325 MG TABLET PO PRN ×2 (04:27→17:03)
[2020-06-01] MEDS: PHENYLEPHRINE/SHK LV/MO/PET,WH 30 GM TUBE RC PRN (04:30)
[2020-06-01 06:37] LABS: BASOPHILS % (AUTO) 0.9 % (0.0-2.0); EOSINOPHILS % (AUTO) 10.7 % (0.0-6.0); HEMATOCRIT 30 % (39-51); HEMOGLOBIN 9.5 g/dL (13.5-17.5); LYMPHOCYTES # (AUTO) 1.4 /CMM (0.8-4.8); MEAN CORPUSCULAR HGB CONC 32 g/dl (31.0-36.0); MEAN CORPUSCULAR VOLUME 82 fL (80-96); MONOCYTES # (AUTO) 0.3 /CMM (0.1-1.30); MONOCYTES % (AUTO) 6.1 % (2.0-12.0); NEUTROPHILS # (AUTO) 2.5 /CMM (1.8-8.9); NEUTROPHILS % (AUTO) 53.3 % (43.0-81.0); PLATELET COUNT (AUTO) 187 /CMM (150-450); RED BLOOD CELL COUNT(AUTO) 3.67 MIL/uL (4.5-6.0); WHITE BLOOD COUNT (AUTO) 4.7 K/uL (4.3-11.0)
[2020-06-01 07:00] LABS: CALCIUM, SERUM 8.8 mg/dL (8.5-10.1); CREATININE 0.7 mg/dL (0.6-1.3); MAGNESIUM 1.9 mg/dL (1.8-2.4); PHOSPHORUS 3.2 mg/dL (2.5-4.9); POTASSIUM 3.6 mmol/L (3.5-5.1)
--- NOTE | 2020-06-01 07:20 | NUR ---
RN OPENING NOTE PATIENT RECEIVED IN SEMI FOWLERS POSITION. PATIENT IS AOX4 AND ABLE TO MAKE NEEDS KNOWN. CURRENTLY ON HIGH FLOW NC AT 40 LPM 70% + NRB AT 15 LPM WITH NO SIGNS OF LABORED BREATHING. VILLARREAL CATHETER IS IN PLACE. JUMA MIDLINE IS PATENT, INTACT, AND HAS NO SIGNS OF INFILTRATION. SAFETY PRECAUTIONS IMPLEMENTED, BED IS LOCKED IN THE LOWEST POSITION, SIDE RAILS UP X2, CALL LIGHT WITHIN REACH. WILL CONTINUE TO MONITOR AND PROVIDE CARE THROUGHOUT SHIFT.
[2020-06-01] MEDS: PANTOPRAZOLE 40 MG TABLET.DR PO SCH (07:46)
[2020-06-01] MEDS: BLOOD SUGAR DIAGNOSTIC 1 EACH STRIP VI SCH ×4 (07:52→21:49)
[2020-06-01 08:00] VITALS: BP 123/73
[2020-06-01] MEDS: ASPIRIN 81 MG TAB.CHEW PO SCH (09:19)
[2020-06-01] MEDS: LORAZEPAM 0.5 MG TABLET PO SCH (09:20)
[2020-06-01] MEDS: TAMSULOSIN 0.4 MG CAP.SR.24H PO SCH (09:20)
[2020-06-01] MEDS: AMIODARONE HCL 200 MG TABLET PO SCH ×2 (09:20→17:03)
[2020-06-01] MEDS: Z GUARD REMEDY 2 OZ OINT TP SCH (09:21)
[2020-06-01] MEDS: METOPROLOL TARTRATE 50 MG TABLET PO SCH ×2 (09:21→21:43)
[2020-06-01] MEDS: FINASTERIDE (5 MG) 5 MG TABLET PO SCH (09:21)
[2020-06-01] MEDS: CLOTRIMAZOLE 1% 15 GM TUBE TP SCH ×2 (09:21→17:03)
[2020-06-01] MEDS: APIXABAN 5 MG TABLET PO SCH ×2 (09:23→17:04)
[2020-06-01 09:24] LABS: ABG BASE EXCESS 9.4 mmol/L; ABG OXYGEN SATURATION 88.8 % (92.0-98.5); ABG PCO2 59.1 mmHg (35.0-45.0); ABG PH 7.401 (7.350-7.450); ABG PO2 56.8 mmHg (75.0-100.0); AaDO2 378.8 mmHg; COHb 1.1 % (0.5-1.5); MetHb 0.5 % (0.0-1.5); O2Hb 87.4 % (94.0-97.0); SITE, ABG Left Radial
[2020-06-01 12:00] VITALS: BP 132/60
[2020-06-01] MEDS ORDERED: LORAZEPAM 0.5 MG TABLET PO PRN (12:00)
[2020-06-01 16:00] VITALS: BP 102/52
--- NOTE | 2020-06-01 19:30 | NUR ---
RN NOTES RECEIVED PT IN BED, A/O X4. CURRENTLY ON HIGH FLOW AT 40LITERS 70% FIO2 WITH 15 LPM NONREBREATHER. DENIES SOB OR ANY S/SX OF ACUTE DISTRESS NOTED. JUMA MIDLINE INTACT AND PATENT. VILLARREAL CATHETER IN PLACE WITH BLOODY URINE OUTPUT, PT DENIES ANY PAIN AT THIS TIME. PT AFEBRILE. SAFETY MEASURES IN PLACE. CALL LIGHT WITHIN REACH. BED LOCKED AND IN LOWEST POSITION WITH SIDE RAILS UP X2. WILL CONTINUE TO MONITOR.
--- NOTE | 2020-06-01 19:55 | NUR ---
RN CLOSING NOTE PATIENT IN SEMI FOWLERS POSITION. PATIENT IS AOX4 AND ABLE TO MAKE NEEDS KNOWN. CURRENTLY ON HIGH FLOW NC AT 40 LPM 70% + NRB AT 15 LPM WITH NO SIGNS OF LABORED BREATHING. VILLARREAL CATHETER IS IN PLACE. JUMA MIDLINE IS PATENT, INTACT, AND HAS NO SIGNS OF INFILTRATION. SAFETY PRECAUTIONS IMPLEMENTED, BED IS LOCKED IN THE LOWEST POSITION, SIDE RAILS UP X2, CALL LIGHT WITHIN REACH. WILL ENDORSE CARE TO UPCOMING SHIFT.
[2020-06-01 20:00] VITALS: BP 126/59
--- NOTE | 2020-06-01 20:40 | NUR ---
RN NOTES NOTIFIED DR OWENS REGARDING BLOOD FROM VILLARREAL CATHETER. MD ORDERED TO HOLD ELIQUIS AND ASPIRIN AM DOSE.
[2020-06-01] MEDS: SIMVASTATIN 10 MG TABLET PO SCH (21:43)
[2020-06-01] MEDS: LATANOPROST EYE DROP 0.005% 2.5 ML BOTTLE EACHEYE SCH (21:50)
[2020-06-02] VITALS: BP 112/62
[2020-06-02] MEDS: GUAIFENESIN/CODEINE 10 ML UDC PO PRN ×3 (00:37→23:41)
[2020-06-02 04:00] VITALS: BP 111/61
--- NOTE | 2020-06-02 07:00 | NUR ---
RN NOTES RT TITRATED FIO2 TO 60 %. NO DISTRESS NOTED. PT TOLERATING WELL. DENIES SOB. ALL NEEDS ATTENDED. WOUND TX DONE ORDERED. NSR ON TELE MONITOR. ALL SAFETY MEASURES MAINTAINED. WILL ENDORSE TO NEXT SHIFT NURSE FOR RAFI.
--- NOTE | 2020-06-02 07:30 | NUR ---
ROTARY PUMP OPERATOR AM NOTES RECEIVED PT IN BED, AO X 4, ON HIGH FLOW 40L FIO2 60%, SPO2 97%, NO SIGN AND SYMPTOMS OF DISTRESS, SINUS RHYTHM HR 77, DENIES ANY DISCOMFORT, JUMA MIDLINE, FLUSHES WELL, SITE CLEAR, SEE NURSING FLOWSHEET FOR SKIN ISSUES, REGULAR DIET, DISCUSSED PLAN OF CARE, VERBALIZED UNDERSTANDING, BEDREST, VILLARREAL CATH IN PLACE, BLOOD TINGED URINE, MD AWARE,BED ON LOWEST POSITION AND LOCKED SIDE RAILS UP X2 CALL LIGHT WITHIN REACH WILL CONT TO MONITOR.
[2020-06-02 08:00] VITALS: BP 143/74
[2020-06-02] MEDS: BLOOD SUGAR DIAGNOSTIC 1 EACH STRIP VI SCH ×4 (08:11→21:53)
[2020-06-02] MEDS: PANTOPRAZOLE 40 MG TABLET.DR PO SCH (08:23)
--- NOTE | 2020-06-02 09:30 | NUR ---
RN NOTES DUE MEDS GIVEN.
[2020-06-02] MEDS: ASPIRIN 81 MG TAB.CHEW PO SCH (09:52)
[2020-06-02] MEDS: AMIODARONE HCL 200 MG TABLET PO SCH ×2 (09:52→17:34)
[2020-06-02] MEDS: FINASTERIDE (5 MG) 5 MG TABLET PO SCH (09:53)
[2020-06-02] MEDS: TAMSULOSIN 0.4 MG CAP.SR.24H PO SCH (09:53)
[2020-06-02] MEDS: METOPROLOL TARTRATE 50 MG TABLET PO SCH ×2 (09:53→20:33)
[2020-06-02] MEDS: Z GUARD REMEDY 2 OZ OINT TP SCH (09:54)
[2020-06-02] MEDS: CLOTRIMAZOLE 1% 15 GM TUBE TP SCH ×2 (09:54→17:31)
[2020-06-02] MEDS: APIXABAN 5 MG TABLET PO SCH ×2 (09:56→17:34)
[2020-06-02 12:00] VITALS: BP 132/61
[2020-06-02 16:00] VITALS: BP 128/70
[2020-06-02] MEDS ORDERED: PANT40TA2 PO (17:02)
[2020-06-02] MEDS ORDERED: APIX5TAB PO (17:02)
[2020-06-02] MEDS ORDERED: SIMV10TA98 PO (17:02)
[2020-06-02] MEDS ORDERED: CLOT15CR35 TP (17:02)
[2020-06-02] MEDS ORDERED: LATA2.5D2 EACHEYE (17:02)
[2020-06-02] MEDS ORDERED: METO50TA16 PO (17:02)
[2020-06-02] MEDS ORDERED: INSU100V28 SQ (17:02)
[2020-06-02] MEDS ORDERED: TAMS-12 PO (17:02)
[2020-06-02] MEDS ORDERED: AMIO200T7 PO (17:02)
[2020-06-02] MEDS ORDERED: ASPI-1169 PO (17:02)
[2020-06-02] MEDS ORDERED: *INS REG SQ (17:02)
[2020-06-02] MEDS ORDERED: ALLA266C2 TP ×2 (17:02)
[2020-06-02] MEDS ORDERED: FINA5TAB3 PO (17:02)
[2020-06-02] MEDS ORDERED: [UNRECOGNIZED DRUG - OTHER] RC (17:02)
[2020-06-02] MEDS ORDERED: Lorazepam PO (17:02)
--- NOTE | 2020-06-02 19:16 | NUR ---
CLINICAL RESEARCH TECH CLOSING NOTES PT RESTING IN BED, AO X 4, ON HIGH FLOW 40L FIO2 60%, SPO2 98%, NO SIGN AND SYMPTOMS OF DISTRESS, SINUS RHYTHM, DENIES ANY DISCOMFORT, JUMA MIDLINE, FLUSHES WELL, SITE CLEAR, REGULAR DIET, BEDREST, VILLARREAL CATH IN PLACE, BLOOD TINGED URINE, 200 ML OUTPUT, BED ON LOWEST POSITION AND LOCKED SIDE RAILS UP X2 CALL LIGHT WITHIN REACH, ALL NEEDS MET, PM CARE DONE, NO OTHER SIGNIFICANT CHANGE IN CONDITION, WILL ENDORSE TO NEXT SHIFT FOR RAFI. PATIENT FOR DC TOMORROW TO [facility]. WAS SUPPOSED TO GO THIS AFTERNOON BUT PER TRAINING CONSULTANT RICARDO, BED WAS NOT AVAILABLE. AWARE.
--- NOTE | 2020-06-02 19:20 | NUR ---
RN OPENING NOTE RECEIVED PATIENT IN BED RESTING ALERT ORIENTED X4 VERBALLY RESPONSIVE ON 40L HIGH FLOW OXYGEN AND 15 L NON REBREATHER MASK 0N FIO2:60% O2:95% IV SITE IS ON RIGHT UPPER ARM MIDLINE INTACT PATENT CALL LIGHT WITHIN REACH,SAFETY MEASURE IMPLEMENT BED IN LOW POSITION AND LOCKED CONTINUE TO MONITOR.
[2020-06-02 20:00] VITALS: BP 144/70
[2020-06-02] MEDS: LATANOPROST EYE DROP 0.005% 2.5 ML BOTTLE EACHEYE SCH (21:00)
[2020-06-02] MEDS: SIMVASTATIN 10 MG TABLET PO SCH (21:01)
[2020-06-02] MEDS: INSULIN REGULAR, HUMAN 100 UNIT/ML 3 ML VIAL SQ PRN (21:54)
--- NOTE | 2020-06-02 21:55 | NUR ---
RN NOTE BLOOD SUGAR IS 105 NOT REQUIRED INSULIN PER SLIDING SCALE CONTINUE TO MONITOR.
[2020-06-03] VITALS: BP 123/67
[2020-06-03 04:00] VITALS: BP 126/69
--- NOTE | 2020-06-03 06:26 | NUR ---
RN CLOSING NOTE PATIENT REMAINS ON ALERT ORIENTED X4 VERBALLY RESPONSIVE NO SOB NOT ACUTE DISTRESS NOTED HE IS ON 40L HIGH FLOW OXYGEN FIO2:60% AND 15L NONREBREATHER MASK O2:97% ALL DUE MEDS GIVEN MD ORDERED KEPT CLEAN AND DRY ALL THE TIME,KEPT CALL LIGHT WITHIN REACH,KEPT COMFORTABLE ALL NEEDS MET.ENDORSE NEXT COMING SHIFT FOR CONTINUATION OF CARE.
[2020-06-03 07:00] VITALS: BP 142/78
--- NOTE | 2020-06-03 07:49 | NUR ---
LOTTERIES AGENT NOTE PATIENT REMAINS ON ALERT ORIENTED X4 VERBALLY RESPONSIVE NO SOB NOT ACUTE DISTRESS NOTED HE IS ON 40L HIGH FLOW OXYGEN FIO2:60% AND 15L NONREBREATHER MASK O2:94% AT THIS TIME ,KEPT CLEAN AND DRY ALL THE TIME,KEPT CALL LIGHT WITHIN REACH,KEPT COMFORTABLE ALL NEEDS MET,ON TELE MONITOR SR HR 69 AT THIS TIME , RT UPPER ARM MID LINE IN PLACE ,BED IN LOWEST AND LOCKED POSITION ,WILL CONT TO MONITOR ,
[2020-06-03 08:00] VITALS: BP 142/78
[2020-06-03] MEDS: AMIODARONE HCL 200 MG TABLET PO SCH ×2 (08:51→16:23)
[2020-06-03] MEDS: TAMSULOSIN 0.4 MG CAP.SR.24H PO SCH (08:51)
[2020-06-03] MEDS: METOPROLOL TARTRATE 50 MG TABLET PO SCH ×2 (08:52→21:00)
[2020-06-03] MEDS: ASPIRIN 81 MG TAB.CHEW PO SCH (08:52)
[2020-06-03] MEDS: FINASTERIDE (5 MG) 5 MG TABLET PO SCH (08:52)
[2020-06-03] MEDS: BLOOD SUGAR DIAGNOSTIC 1 EACH STRIP VI SCH ×4 (08:53→21:57)
[2020-06-03] MEDS: APIXABAN 5 MG TABLET PO SCH ×2 (08:53→16:24)
[2020-06-03] MEDS: Z GUARD REMEDY 2 OZ OINT TP SCH (08:54)
[2020-06-03] MEDS: CLOTRIMAZOLE 1% 15 GM TUBE TP SCH ×2 (08:54→16:26)
[2020-06-03] MEDS: PANTOPRAZOLE 40 MG TABLET.DR PO SCH (09:00)
--- NOTE | 2020-06-03 10:38 | NUR ---
PER CM PICKUP AT 7PM TO [facility] RM 308 [id number] [phone].PRIMARY RN MADE AWARE.
--- NOTE | 2020-06-03 11:31 | NUR ---
MS RN NOTE CALLED TO [facility] TO GIVE REPORT BUT RN STATED THAT WILL CALL ME LATTER ON , VERY BUSY AT THIS TIME
--- NOTE | 2020-06-03 13:33 | NUR ---
ms rn note called to nursing facility spoke with john rn ,report given
[2020-06-03] MEDS: GUAIFENESIN/CODEINE 10 ML UDC PO PRN ×2 (15:48→19:57)
[2020-06-03 16:25] VITALS: BP 139/67
--- NOTE | 2020-06-03 17:00 | NUR ---
MS RN NOTE CENTRAL LINE DRESSING CHANGED PER HOSPITAL PROTOCOL ,PER Rashad PARSON TO LEAVE MID LINE FOR DISCHARGE TO NURSING FACILITY, WILL F\U
--- NOTE | 2020-06-03 18:26 | NUR ---
MS RN NOTE ALL NEEDS ATTENDED, WITH HIGH FLOW OFO2 ORDERED ,ALL NEEDS ATTENDED, REFUSING TO HAVE DINER, NOT IN DISTRESS AWAITING FOR AMBULANCE FOR DISCHARGE
--- NOTE | 2020-06-03 19:00 | NUR ---
RN OPENING NOTE RECEIVED PATIENT IN BED RESTING ALERT ORIENTED X4 VERBALLY RESPONSIVE ON HIGH FLOW OXYGEN 40L FIO2:55% AND 15L NONREBREATHER MASK O2:97% IV SITE IS ON RIGHT UPPER ARM MIDLINE INTACT PATENT VILLARREAL IN PLACE URINE DRAINING BY GRAVITY. SAFETY MEASURE IMPLEMENT, CALL LIGHT WITHIN REACH,CONTINUE TO MONITOR
--- NOTE | 2020-06-03 19:28 | NUR ---
ms rn note ambulance not arrived, called to case randy chawla ,stated that will come soon ,endorsed to Roxanne driver to f\u
[2020-06-03 21:00] VITALS: BP 110/62
[2020-06-03] MEDS: SIMVASTATIN 10 MG TABLET PO SCH (21:22)
[2020-06-03] MEDS: LATANOPROST EYE DROP 0.005% 2.5 ML BOTTLE EACHEYE SCH (21:30)
--- NOTE | 2020-06-03 22:00 | NUR ---
RN NOTE BLOOD SUGAR IS 85 NOT REQUIRED INSULIN SLIDING SCALE CONTINUE TO MONITOR.
--- NOTE | 2020-06-03 22:58 | NUR ---
RN CLOSING NOTE PATIENT DISCHARGE IN STABLE CONDITION NO SOB NOT ACUTE DISTRESS NOTED,O2:97% IN HIGH FLOW OXYGEN,VILLARREAL CATHETER IN PLACE,IV LINE IN RIGHT UPPER MIDLINE INTACT PATENT.PATIENT SIGNED ALL DISCHARGE PAPERS AND BELONGINGS AFTER ASKED ANY QUESTION HE SAID NO.ALL DUE MEDS GIVEN, AT THIS TIME, KEPT CLEAN AND DRY,ALL NEEDS MET.AGRICULTURE SPECIALIST PICKED HIM UP AT 2250PM LEFT HOSPITAL IN STABLE CONDITION BY [id number].
== END 2020-06-03 22:55 | DRG 137 ==
LOC: ER 19:54 → TRANSITION 22:36 → TELE-TD 04-04 23:02 → TELE1 04-11 10:20 → ICU 04-27 09:24 → TELE-TD 05-08 18:28 → TELE1 05-09 12:10 → TELE-TD 05-25 04:59 → TELE1 05-25 16:26 → MEDSG1 06-03 08:56
PROVIDERS: ADMIT Internal Medicine; ATTEND Internal Medicine
PROC: XW033E5 Introduction of Remdesivir Anti-infective into Peripheral Vein, Percutaneous Approach, New Technology Group 5 (ICD-10-PCS; principal; 2020-04-04)
PROC: XW13325 Transfusion of Convalescent Plasma (Nonautologous) into Peripheral Vein, Percutaneous Approach, New Technology Group 5 (ICD-10-PCS; 2020-04-04)
PROC: 05H933Z Insertion of Infusion Device into Right Brachial Vein, Percutaneous Approach (ICD-10-PCS; 2020-04-05)
DX: U07.1 COVID-19 (principal); J12.82 Pneumonia due to coronavirus disease 2019; I11.0 Hypertensive heart disease with heart failure; E87.6 Hypokalemia; J96.01 Acute respiratory failure with hypoxia; Z79.84 Long term (current) use of oral hypoglycemic drugs; Z79.899 Other long term (current) drug therapy; E11.9 Type 2 diabetes mellitus without complications; E66.01 Morbid (severe) obesity due to excess calories; E78.5 Hyperlipidemia, unspecified; Z68.39 Body mass index [BMI] 39.0-39.9, adult; I40.0 Infective myocarditis; F41.9 Anxiety disorder, unspecified; I21.A1 Myocardial infarction type 2; D69.6 Thrombocytopenia, unspecified; I50.9 Heart failure, unspecified; J96.02 Acute respiratory failure with hypercapnia; J98.11 Atelectasis; N39.0 Urinary tract infection, site not specified; N40.0 Benign prostatic hyperplasia without lower urinary tract symptoms; T38.0X5A Adverse effect of glucocorticoids and synthetic analogues, initial encounter; Y92.9 Unspecified place or not applicable; Z79.01 Long term (current) use of anticoagulants; Z82.49 Family history of ischemic heart disease and other diseases of the circulatory system; L89.159 Pressure ulcer of sacral region, unspecified stage; B33.22 Viral myocarditis; I48.92 Unspecified atrial flutter; I48.0 Paroxysmal atrial fibrillation; J84.10 Pulmonary fibrosis, unspecified
CPT/HCPCS: 36410; 36415; 36600; 71045-TC; 71250-TC; 80048-TC; 80053-TC; 80061-TC; 80076-TC; 81001; 82248-TC; 82550-TC; 82728-TC; 82803-TC; 82962-TC; 83605-TC; 83615-TC; 83735-TC; 83880; 84100-TC; 84153-TC; 84154-TC; 84484-TC; 85025-TC; 85378-TC; 85610-TC; 85730-TC; 86140-TC; 86850-TC; 87040-TC; 87081-TC; 87086-TC; 87186-TC; 93308-TC; 93970-TC; 94760-TC; 94762-TC; 94799-TC; 97110-TC; 97112-TC; 97116-TC; 97530-TC; 99082-TC; A4216; A4217; A4349; A6253; G0378; J0282; J0290; J0456; J0696; J1100; J1160; J1644; J1650; J1815; J1940; J3475; J3490; J7030; J7040; J7050; J7060; P9017-BL; Q9967; U0003